=== PATIENT | male | born 1980 | race Caucasian/White ===

== ENCOUNTER 2019-04-11 15:22 | Inpatient (IN) | payer BC ==
[2019-04-11] VITALS (15 sets, daily range): BP systolic 164–268; BP diastolic 88–149
[~2019-04-11] VITALS: Ht 177.8 cm; Wt 143.8 kg
--- NOTE | 2019-04-11 15:50 | PHYS DOC ---
Adult General Chief Complaint Chief Complaint: HYPERTENSION HPI HPI Patient is a 39 year old male who presents with went to see his primary care Dr Mitchell today because the last JVD days he's noticed increased bilateral leg edema and shortness of breath for the last week. Patient states he has a history of asthma only. Patient states that the last week that he stopped short of breath as when he is up and moving normally like that. Patient thought that his asthma may have been acting up so he started using his albuterol inhaler and it did not seem to be working. Patient denies any illness or coughing, fever, abd ominal pain, nausea, vomiting, headache, chest pain, dizziness, numbness or tingling, syncope, visual changes. Patient denies any pain at this time. Patient states at this time he is feeling normal but if he is up and moving is when he feels shortness of breath. Review of Systems Review of Systems Respiratory: Denies cough. +shortness of breath [] Musculoskeletal: Lower extremity swelling. Denies back pain or joint pain [] All other systems were reviewed and found to be within normal limits, except as documented in this note. Current Medications Current Medications Current Medications Medications (Trade) Dose Ordered Sig/Radha Start Time Stop Time Status Last Admin Dose Admin Aspirin (Julian Aspirin) 325 mg 1X ONCE 04/11/19 16:00 04/11/19 16:01 DC 04/11/19 16:31 325 MG Labetalol HCl (Normodyne Iv Push) 10 mg 1X ONCE 04/11/19 16:00 04/11/19 16:01 DC 04/11/19 16:32 10 MG Allergies Allergies Allergies Coded Allergies Type Severity Reaction Last Updated Verified No Known Drug Allergies 04/11/19 No Physical Exam Physical Exam Constitutional: Well developed, well nourished, no acute distress, non-toxic appearance. [] HENT: Normocephalic, atraumatic, bilateral external ears normal, oropharynx moist, no oral exudates, nose normal. [] Eyes: PERRLA, EOMI, conjunctiva normal, no discharge. [] Neck: Normal range of motion, no tenderness, supple, no stridor. [] Cardiovascular:Heart rate regular Tachy rhythm, no murmur [] Lungs & Thorax: Bilateral breath sounds clear to auscultation [] Abdomen: Bowel sounds normal, soft, no tenderness, no masses, no pulsatile masses. [] Skin: Warm, dry, no erythema, no rash. [] Extremities: No tenderness, no cyanosis, no clubbing, ROM intact, Bilateral lower 2+ slightly pitting edema. [] Neurologic: Alert and oriented X 3, normal motor function, normal sensory function, no focal deficits noted. [] Psychologic: Affect normal, judgement normal, mood normal. [] Current Patient Data Vital Signs Vital Signs Date Time Temp Pulse Resp B/P (MAP) Pulse Ox O2 Delivery O2 Flow Rate FiO2 04/11/19 16:45 82 14 97 04/11/19 16:32 235/148 04/11/19 15:32 98.5 Room Air 98.5 Lab Values Laboratory Tests Test 04/11/19 16:12 04/11/19 16:28 White Blood Count 14.2 x10^3/uL (4.0-11.0) H Red Blood Count 3.77 x10^6/uL (4.30-5.70) L Hemoglobin 9.4 g/dL (13.0-17.5) L Hematocrit 28.5 % (39.0-53.0) L Mean Corpuscular Volume 76 fL (79-100) L Mean Corpuscular Hemoglobin 25 pg (25-35) Mean Corpuscular Hemoglobin Concent 33 g/dL (31-37) Red Cell Distribution Width 16.4 % (11.5-14.5) H Platelet Count 271 x10^3/uL (140-400) Neutrophils (%) (Auto) 79 % (31-73) H Lymphocytes (%) (Auto) 14 % (24-48) L Monocytes (%) (Auto) 5 % (0-9) Eosinophils (%) (Auto) 1 % (0-3) Basophils (%) (Auto) 1 % (0-3) Neutrophils # (Auto) 11.2 x10^3/uL (1.8-7.7) H Lymphocytes # (Auto) 2.0 x10^3/uL (1.0-4.8) Monocytes # (Auto) 0.7 x10^3/uL (0.0-1.1) Eosinophils # (Auto) 0.2 x10^3/uL (0.0-0.7) Basophils # (Auto) 0.2 x10^3/uL (0.0-0.2) Sodium Level 135 mmol/L (136-145) L Potassium Level 3.3 mmol/L (3.5-5.1) L Chloride Level 97 mmol/L (98-107) L Carbon Dioxide Level 29 mmol/L (21-32) Anion Gap 9 (6-14) Blood Urea Nitrogen 37 mg/dL (8-26) H Creatinine 3.1 mg/dL (0.7-1.3) H Estimated GFR (Cockcroft-Gault) 22.7 BUN/Creatinine Ratio 12 (6-20) Glucose Level 104 mg/dL (70-99) H Calcium Level 9.0 mg/dL (8.5-10.1) Total Bilirubin 0.8 mg/dL (0.2-1.0) Aspartate Amino Transferase (AST) 24 U/L (15-37) Alanine Aminotransferase (ALT) 17 U/L (16-63) Alkaline Phosphatase 97 U/L (46-116) Troponin I Quantitative 0.116 ng/mL (0.000-0.055) HH-Wjm-E-Type Natriuretic Peptide 8397 pg/mL (0-124) H Total Protein 6.9 g/dL (6.4-8.2) Albumin 3.2 g/dL (3.4-5.0) L Albumin/Globulin Ratio 0.9 (1.0-1.7) L Urine Collection Type Unknown Urine Color Yellow Urine Clarity Clear Urine pH 6.0 Urine Specific [place] 1.015 Urine Protein >=300 mg/dL (NEG-TRACE) Urine Glucose (UA) Negative mg/dL (NEG) Urine Ketones (Stick) Negative mg/dL (NEG) Urine Blood Small (NEG) Urine Nitrite Negative (NEG) Urine Bilirubin Negative (NEG) Urine Urobilinogen Dipstick 0.2 mg/dL (0.2 mg/dL) Urine Leukocyte Esterase Negative (NEG) Urine RBC 1-2 /HPF (0-2) Urine WBC 1-4 /HPF (0-4) Urine Squamous Epithelial Cells Few /LPF Urine Bacteria Few /HPF (0-FEW) Urine Mucus Slight /LPF Urine Opiates Screen Neg (NEG) Urine Methadone Screen Neg (NEG) Urine Barbiturates Neg (NEG) Urine Phencyclidine Screen Neg (NEG) Urine Amphetamine/Methamphetamine Neg (NEG) Urine Benzodiazepines Screen Neg (NEG) Urine Cocaine Screen Neg (NEG) Urine Cannabinoids Screen Pos (NEG) Urine Ethyl Alcohol Neg (NEG) Laboratory Tests 04/11/19 16:12 Laboratory Tests 04/11/19 16:12 EKG EKG Sinus Rhythm with nonspecific ST depression, No STEMI[] Interpretation Time: [address] Calixto Radiology/Procedures Radiology/Procedures [] Impressions: [facility] [address] [place] [address] IMAGING REPORT Signed PATIENT: JOE LIZAMA AACCOUNT: [id number] : 1980 LOCATION: ER AGE: 39 SEX: M EXAM STATUS: REG ER ORD. PHYSICIAN: HENRIQUE MERAZ APRN REASON: soa PROCEDURE: CHEST PA & LATERAL PA and lateral views of the chest. Comparison: None. Indication: Shortness of air Findings: The heart size is enlarged. No pneumothorax or effusion. No air space or interstitial disease. The bony structures are intact. Impression: 1. No acute cardiopulmonary process. 2. Cardiomegaly. Electronically signed by: Catalino Davidson MD (04/11/2019 4:35 PM) [id number] DICTATED and SIGNED BY: CATALINO DAVIDSON MD DATE: 04/11/19 163 Course & Med Decision Making Course & Med Decision Making Patient states he does not smoke and he has a family history of hypertension. Patients blood pressure in the ED is 262/154. Labetalol 10mg give. Patient has bilateral lower extremity 2+ swelling that is slightly pitting. Lungs are clear to auscultation in all lobes. I remained soft and nontender. Skin pink warm and dry. Ambulatory with a steady gait. Speaks in full clear sentences. Alert and oriented. I have consulted with Dr Calixto on this patient. Patient has likely had high blood pressure for a while due to his labs and kidney function (see labs). Patient Troponin is 0.116. 1730: I have spoken to Dr Jane and he states to give the patient 60mg Lasix IV x1 and Potassium 20meg PO. Dr Hawkins is admitting the patient. Dragon Disclaimer Dragon Disclaimer This electronic medical record was generated, in whole or in part, using a voice recognition dictation system. The HEART Score for CP Pts HEART Score for Chest Pain: HEART Score for Chest Pain Response (Comments) Value History Slighlty/Non-Suspicious 0 ECG Nonspecific Repolarizatio 1 Age < 45 0 Risk Factors 1 or 2 Risk Factors 1 Troponin >1-<3x Normal Limit 1 Total 3 Risk Factors: Risk Factors: DM, Current or recent (<one month) smoker, HTN, HLP, family history of CAD, obesity. Risk Scores: Score 0 - 3: 2.5% MACE over next 6 weeks - Discharge Home Score 4 - 6: 20.3% MACE over next 6 weeks - Admit for Clinical Observation Score 7 - 10: 72.7% MACE over next 6 weeks - Early Invasive Strategies Departure Departure Impression: Primary Impression: Elevated troponin Additional Impressions: HTN (hypertension) TERI (acute kidney injury) Disposition: ADMITTED INPATIENT Admitting Physician: FLORENTINO (jody) Condition: STABLE Referrals: NALLELY MITCHELL (PCP) Problem Qualifiers Additional Impressions: HTN (hypertension) Hypertension type: essential hypertension Qualified Codes: I10 - Essential (primary) hypertension HENRIQUE MERAZ [employer]CH[employer] Apr 11, 2019 15:50
[2019-04-11] MEDS ORDERED: LABETALOL 20 MG/4 ML DISP.SYRIN. IVP ONE (16:00)
[2019-04-11] MEDS ORDERED: ASPIRIN 325 MG TABLET PO ONE (16:00)
[2019-04-11 16:19] LABS: BASO # 0.2 x10^3/uL (0.0-0.2); BASO % 1 % (0-3); EOS # 0.2 x10^3/uL (0.0-0.7); EOS % 1 % (0-3); HEMATOCRIT 28.5 % (39.0-53.0); HEMOGLOBIN 9.4 g/dL (13.0-17.5); LYMPH % 14 % (24-48); MEAN CORPUSCULAR HEMOGLOBIN 25 pg (25-35); MEAN CORPUSCULAR HGB CONC 33 g/dL (31-37); MEAN CORPUSCULAR VOLUME 76 fL (79-100); MONO # 0.7 x10^3/uL (0.0-1.1); MONO % 5 % (0-9); NEUT # 11.2 x10^3/uL (1.8-7.7); NEUT % 79 % (31-73); PLATELET COUNT 271 x10^3/uL (140-400); RED BLOOD COUNT 3.77 x10^6/uL (4.30-5.70); RED CELL DISTRIBUTION WIDTH 16.4 % (11.5-14.5); WHITE BLOOD COUNT 14.2 x10^3/uL (4.0-11.0)
[2019-04-11 16:32] LABS: CREATININE 3.1 mg/dL (0.7-1.3); GFR 22.7; POTASSIUM 3.3 mmol/L (3.5-5.1)
[2019-04-11 16:37] LABS: BILIRUBIN,URINE NEGATIVE (NEG); CLARITY,URINE CLEAR; COLOR,URINE YELLOW; NITRITE,URINE NEGATIVE (NEG); PROTEIN,URINE >=300 mg/dL (NEG-TRACE); UROBILINOGEN,URINE 0.2 mg/dL (0.2 mg/dL)
--- NOTE | 2019-04-11 16:38 | RAD ---
PA and lateral views of the chest. Comparison: None. Indication: Shortness of air Findings: The heart size is enlarged. No pneumothorax or effusion. No air space or interstitial disease. The bony structures are intact. Impression: 1. No acute cardiopulmonary process. 2. Cardiomegaly. Electronically signed by: Catalino Davidson MD (04/11/2019 4:35 PM) [id number]
[2019-04-11 16:39] LABS: ALBUMIN 3.2 g/dL (3.4-5.0); ALBUMIN/GLOBULIN RATIO 0.9 (1.0-1.7); TOTAL BILIRUBIN 0.8 mg/dL (0.2-1.0); TOTAL PROTEIN 6.9 g/dL (6.4-8.2)
[2019-04-11 16:44] LABS: AMPHETAMINE/METHAMPHETAMINE NEG (NEG); BARBITURATES NEG (NEG); BENZODIAZEPINES NEG (NEG); CANNABINOIDS POS (NEG); COCAINE NEG (NEG); METHADONE NEG (NEG); OPIATES NEG (NEG); PHENCYCLIDINE NEG (NEG)
[2019-04-11 16:47] LABS: BACTERIA,URINE FEW /HPF (0-FEW); SQUAMOUS EPITHELIAL CELL,UR FEW /LPF
[2019-04-11] MEDS ORDERED: POTASSIUM CHLORIDE 20 MEQ TABLET.ER. PO ONE ×2 (17:45→21:15)
[2019-04-11] MEDS ORDERED: ONDANSETRON PF 4 MG/2 ML VIAL. IV ONE (17:45)
[2019-04-11] MEDS ORDERED: FUROSEMIDE 100 MG/10 ML VIAL. IVP ONE (17:45)
[2019-04-11] MEDS ORDERED: ACETAMINOPHEN 325 MG TABLET. PO PRN (17:45)
[2019-04-11] MEDS ORDERED: ONDANSETRON PF 4 MG/2 ML VIAL. IV PRN ×2 (17:45→20:30)
--- NOTE | 2019-04-11 18:29 | PDOC1 ---
History and Physical Date of Admission Date of Admission DATE: 04/11/19 TIME: 18:29 Identification/Chief Complaint Chief Complaint HTN Source Source: Chart review, Patient History of Present Illness History of Present Illness Mr Gonzalez is a 39yo M w/ PMHx asthma, morbid obesity who presents to ED directly from Dr Mitchell today because of BP 254/136. Patient has noted increased bilateral leg edema and shortness of breath for the last week. He has been c/o lethargy for weeks. He has recently been on a "health kick" and has intentionally lost 25# by joining the [employer] for exercise 3-5 days per week as of 2 months ago and he and his have made healthier dietary choices. Due to worsening dyspnea on exertion and early fatigue he thought that his asthma may have been acting up so he started using his albuterol inhaler and it did not seem to be working and has run out. Patient denies any illness or coughing, fever, abdominal pain, nausea, vomiting, headache, chest pain, dizziness, numbness or tingling, syncope, visual changes. Patient denies any pain at this time. Patient states at this time he is feeling normal but if he is up and moving is when he feels shortness of breath. He established primary care today for his lethargy and above BP was noted and he was sent immediately to the ED. He has not been told his BP has been elevated previously. In ED he was noted with a number of abnormalities with BP 264/154 minimally changed with labetalol. CXR revealed cardiomegaly. EKG NSR with non- specific lucretia-lateral ST depressions. 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 He lives with his and 2 children (8 and 5), is non-smoker, and has recently stopped drinking alcohol 2 months ago. Father and paternal grandfather with h/o HTN, does not know his mother's lineage or health history. Past Medical History Cardiovascular: No pertinent hx Pulmonary: Asthma GI: No pertinent hx Heme/Onc: No pertinent hx Hepatobiliary: No pertinent hx Psych: No pertinent hx Rheumatologic: No pertinent hx Infectious disease: No pertinent hx ENT: No pertinent hx Renal/: No pertinent hx Endocrine: No pertinent hx Dermatology: No pertinent hx Past Surgical History Past Surgical History: No pertinent history Family History Family History: Hypertension Family History: Parent (Father - HTN), Grandparents (Paternal Grandfather - HTN) Social History Smoke: No ALCOHOL: occassional Drugs: Marijuana Current Problem List Problem List Problems Medical Problems: (1) TERI (acute kidney injury) Status: Acute (2) Elevated troponin Status: Acute (3) HTN (hypertension) Status: Acute Current Medications Current Medications Current Medications Labetalol HCl (Normodyne Iv Push) 10 mg 1X ONCE IVP Last administered on 04/11/19at 16:32; Start 04/11/19 at 16:00; Stop 04/11/19 at 16:01; Status DC Aspirin (Julian Aspirin) 325 mg 1X ONCE PO Last administered on 04/11/19at 16:31; Start 04/11/19 at 16:00; Stop 04/11/19 at 16:01; Status DC Furosemide (Lasix) 60 mg 1X ONCE IVP Last administered on 04/11/19at 18:05; Start 04/11/19 at 17:45; Stop 04/11/19 at 17:46; Status DC Potassium Chloride (Klor-Con) 20 meq 1X ONCE PO Last administered on 04/11/19at 18:04; Start 04/11/19 at 17:45; Stop 04/11/19 at 17:46; Status DC Ondansetron HCl (Zofran) 4 mg 1X ONCE IV Last administered on 04/11/19at 18:05; Start 04/11/19 at 17:45; Stop 04/11/19 at 17:46; Status DC Ondansetron HCl (Zofran) 4 mg PRN Q8HRS PRN IV NAUSEA/VOMITING; Start 04/11/19 at 17:45; Stop 04/12/19 at 17:44 Acetaminophen (Tylenol) 650 mg PRN Q4HRS PRN PO FEVER; Start 04/11/19 at 17:45; Stop 04/12/19 at 17:44 Allergies Allergies: Coded Allergies: No Known Drug Allergies (Unverified , 04/11/19) ROS General: YES: Fatigue, Malaise; No: Chills, Night Sweats, Appetite, Other PSYCHOLOGICAL ROS: No: Anxiety, Behavioral Disorder, Concentration difficultie, Decreased libido, Depression, Disorientation, Hallucinations, Hostility, Irritablity, Memory difficulties, Mood Swings, Obsessive thoughts, Physical abuse, Sexual abuse, Sleep disturbances, Suicidal ideation, Other Eyes: No Blurry vision, No Decreased vision, No Double vision, No Dry eyes, No Excessive tearing, No Eye Pain, No Itchy Eyes, No Loss of vision, No Photophobia, No Scotomata, No Uses contacts, No Uses glasses, No Other HEENT: No: Heacaches, Visual Changes, Hearing change, Nasal congestion, Nasal discharge, Oral lesions, Sinus pain, Sore Throat, Epistaxis, Sneezing, Snoring, Tinnitus, Vertigo, Vocal changes, Other ALLERGY AND IMMUNOLOGY: No: Hives, Insect Bite Sensitivity, Itchy/Watery Eyes, Nasal Congestion, Post Nasal Drip, Seasonal Allergies, Other Hematological and Lymphatic: No: Bleeding Problems, Blood Clots, Blood Transfusions, Brusing, Night Sweats, Pallor, Swollen Lymph Nodes, Other ENDOCRINE: No: Breast Changes, Galactorrhea, Hair Pattern Changes, Hot Flashes, Malaise/lethargy, Mood Swings, Palpitations, Polydipsia/polyuria, Skin Changes, Temperature Intolerance, Unexpected Weight Changes, Other Breast: No New/Changing Breast Lumps, No Nipple changes, No Nipple discharge, No Other Respiratory: YES: Orthopnea, Shortness of breath, SOB with excertion; No: Cough, Hemoptysis, Pleuritic Pain, Sputum Changes, Stridor, Tachypnea, Wheezing, Other Cardiovascular: yes Orthopnea, yes Edema; No Chest Pain, No Palpitations, No Paroxysmal Noc. Dyspnea, No Lt Headedness, No Other Gastrointestinal: No Nausea, No Vomiting, No Abdominal Pain, No Diarrhea, No Constipation, No Melena, No Hematochezia, No Other Genitourinary: No Dysuria, No Frequency, No Incontinence, No Hematuria, No Retention, No Discharge, No Urgency, No Pain, No Flank Pain, No Other, No , No , No , No , No , No , No Musculoskeletal: No Gait Disturbance, No Joint Pain, No Joint Stiffness, No Joint Swelling, No Muscle Pain, No Muscular Weakness, No Pain In:, No Swelling In:, No Other Neurological: No Behavorial Changes, No Bowel/Bladder ControlChng, No Confusion, No Dizziness, No Gait Disturbance, No Headaches, No Impaired Coord/balance, No Memory Loss, No Numbness/Tingling, No Seizures, No Speech Problems, No Tremors, No Visual Changes, No Weakness, No Other Skin: No Dry Skin, No Eczema, No Hair Changes, No Lumps, No Mole Changes, No Mottling, No Nail Changes, No Pruritus, No Rash, No Skin Lesion Changes, No Other, No Acne Physical Exam General: Alert, Oriented X3, Cooperative, No acute distress HEENT: Atraumatic, PERRLA, EOMI, Mucous membr. moist/pink Lungs: Clear to auscultation, Normal air movement Heart: S1S2, RRR, no thrills, no rubs, no gallops, no murmurs Abdomen: Normal bowel sounds, Soft, No tenderness, No hepatosplenomegaly, No masses Rectal Exam: not examined Extremities: No clubbing, No cyanosis, Normal pulses, No tenderness/swelling, Other (1+ edema) Skin: No rashes, No breakdown, No significant lesion Neuro: Normal gait, Normal speech, Strength at 5/5 X4 ext, Normal tone, Sensation intact, Cranial nerves 3-12 NL, Reflexes 2+ Psych/Mental Status: Mental status NL, Mood NL Vitals Vitals Vital Signs Date Time Temp Pulse Resp B/P (MAP) Pulse Ox O2 Delivery O2 Flow Rate FiO2 04/11/19 16:45 82 14 97 04/11/19 16:32 235/148 04/11/19 15:32 98.5 Room Air 98.5 Labs Labs Laboratory Tests Test 04/11/19 16:12 04/11/19 16:28 White Blood Count 14.2 x10^3/uL (4.0-11.0) Red Blood Count 3.77 x10^6/uL (4.30-5.70) Hemoglobin 9.4 g/dL (13.0-17.5) Hematocrit 28.5 % (39.0-53.0) Mean Corpuscular Volume 76 fL (79-100) Mean Corpuscular Hemoglobin 25 pg (25-35) Mean Corpuscular Hemoglobin Concent 33 g/dL (31-37) Red Cell Distribution Width 16.4 % (11.5-14.5) Platelet Count 271 x10^3/uL (140-400) Neutrophils (%) (Auto) 79 % (31-73) Lymphocytes (%) (Auto) 14 % (24-48) Monocytes (%) (Auto) 5 % (0-9) Eosinophils (%) (Auto) 1 % (0-3) Basophils (%) (Auto) 1 % (0-3) Neutrophils # (Auto) 11.2 x10^3/uL (1.8-7.7) Lymphocytes # (Auto) 2.0 x10^3/uL (1.0-4.8) Monocytes # (Auto) 0.7 x10^3/uL (0.0-1.1) Eosinophils # (Auto) 0.2 x10^3/uL (0.0-0.7) Basophils # (Auto) 0.2 x10^3/uL (0.0-0.2) Sodium Level 135 mmol/L (136-145) Potassium Level 3.3 mmol/L (3.5-5.1) Chloride Level 97 mmol/L (98-107) Carbon Dioxide Level 29 mmol/L (21-32) Anion Gap 9 (6-14) Blood Urea Nitrogen 37 mg/dL (8-26) Creatinine 3.1 mg/dL (0.7-1.3) Estimated GFR (Cockcroft-Gault) 22.7 BUN/Creatinine Ratio 12 (6-20) Glucose Level 104 mg/dL (70-99) Calcium Level 9.0 mg/dL (8.5-10.1) Total Bilirubin 0.8 mg/dL (0.2-1.0) Aspartate Amino Transf (AST/SGOT) 24 U/L (15-37) Alanine Aminotransferase (ALT/SGPT) 17 U/L (16-63) Alkaline Phosphatase 97 U/L (46-116) Troponin I Quantitative 0.116 ng/mL (0.000-0.055) QD-Fzp-L-Type Natriuretic Peptide 8397 pg/mL (0-124) Total Protein 6.9 g/dL (6.4-8.2) Albumin 3.2 g/dL (3.4-5.0) Albumin/Globulin Ratio 0.9 (1.0-1.7) Urine Collection Type Unknown Urine Color Yellow Urine Clarity Clear Urine pH 6.0 Urine Specific [place] 1.015 Urine Protein >=300 mg/dL (NEG-TRACE) Urine Glucose (UA) Negative mg/dL (NEG) Urine Ketones (Stick) Negative mg/dL (NEG) Urine Blood Small (NEG) Urine Nitrite Negative (NEG) Urine Bilirubin Negative (NEG) Urine Urobilinogen Dipstick 0.2 mg/dL (0.2 mg/dL) Urine Leukocyte Esterase Negative (NEG) Urine RBC 1-2 /HPF (0-2) Urine WBC 1-4 /HPF (0-4) Urine Squamous Epithelial Cells Few /LPF Urine Bacteria Few /HPF (0-FEW) Urine Mucus Slight /LPF Urine Opiates Screen Neg (NEG) Urine Methadone Screen Neg (NEG) Urine Barbiturates Neg (NEG) Urine Phencyclidine Screen Neg (NEG) Urine Amphetamine/Methamphetamine Neg (NEG) Urine Benzodiazepines Screen Neg (NEG) Urine Cocaine Screen Neg (NEG) Urine Cannabinoids Screen Pos (NEG) Urine Ethyl Alcohol Neg (NEG) Laboratory Tests Test 04/11/19 16:12 04/11/19 16:28 White Blood Count 14.2 x10^3/uL (4.0-11.0) Red Blood Count 3.77 x10^6/uL (4.30-5.70) Hemoglobin 9.4 g/dL (13.0-17.5) Hematocrit 28.5 % (39.0-53.0) Mean Corpuscular Volume 76 fL (79-100) Mean Corpuscular Hemoglobin 25 pg (25-35) Mean Corpuscular Hemoglobin Concent 33 g/dL (31-37) Red Cell Distribution Width 16.4 % (11.5-14.5) Platelet Count 271 x10^3/uL (140-400) Neutrophils (%) (Auto) 79 % (31-73) Lymphocytes (%) (Auto) 14 % (24-48) Monocytes (%) (Auto) 5 % (0-9) Eosinophils (%) (Auto) 1 % (0-3) Basophils (%) (Auto) 1 % (0-3) Neutrophils # (Auto) 11.2 x10^3/uL (1.8-7.7) Lymphocytes # (Auto) 2.0 x10^3/uL (1.0-4.8) Monocytes # (Auto) 0.7 x10^3/uL (0.0-1.1) Eosinophils # (Auto) 0.2 x10^3/uL (0.0-0.7) Basophils # (Auto) 0.2 x10^3/uL (0.0-0.2) Sodium Level 135 mmol/L (136-145) Potassium Level 3.3 mmol/L (3.5-5.1) Chloride Level 97 mmol/L (98-107) Carbon Dioxide Level 29 mmol/L (21-32) Anion Gap 9 (6-14) Blood Urea Nitrogen 37 mg/dL (8-26) Creatinine 3.1 mg/dL (0.7-1.3) Estimated GFR (Cockcroft-Gault) 22.7 BUN/Creatinine Ratio 12 (6-20) Glucose Level 104 mg/dL (70-99) Calcium Level 9.0 mg/dL (8.5-10.1) Total Bilirubin 0.8 mg/dL (0.2-1.0) Aspartate Amino Transf (AST/SGOT) 24 U/L (15-37) Alanine Aminotransferase (ALT/SGPT) 17 U/L (16-63) Alkaline Phosphatase 97 U/L (46-116) Troponin I Quantitative 0.116 ng/mL (0.000-0.055) HC-Bxz-L-Type Natriuretic Peptide 8397 pg/mL (0-124) Total Protein 6.9 g/dL (6.4-8.2) Albumin 3.2 g/dL (3.4-5.0) Albumin/Globulin Ratio 0.9 (1.0-1.7) Urine Collection Type Unknown Urine Color Yellow Urine Clarity Clear Urine pH 6.0 Urine Specific [place] 1.015 Urine Protein >=300 mg/dL (NEG-TRACE) Urine Glucose (UA) Negative mg/dL (NEG) Urine Ketones (Stick) Negative mg/dL (NEG) Urine Blood Small (NEG) Urine Nitrite Negative (NEG) Urine Bilirubin Negative (NEG) Urine Urobilinogen Dipstick 0.2 mg/dL (0.2 mg/dL) Urine Leukocyte Esterase Negative (NEG) Urine RBC 1-2 /HPF (0-2) Urine WBC 1-4 /HPF (0-4) Urine Squamous Epithelial Cells Few /LPF Urine Bacteria Few /HPF (0-FEW) Urine Mucus Slight /LPF Urine Opiates Screen Neg (NEG) Urine Methadone Screen Neg (NEG) Urine Barbiturates Neg (NEG) Urine Phencyclidine Screen Neg (NEG) Urine Amphetamine/Methamphetamine Neg (NEG) Urine Benzodiazepines Screen Neg (NEG) Urine Cocaine Screen Neg (NEG) Urine Cannabinoids Screen Pos (NEG) Urine Ethyl Alcohol Neg (NEG) Images Images CXR - The heart size is enlarged. No pneumothorax or effusion. No air space or interstitial disease. The bony structures are intact. Impression: 1. No acute cardiopulmonary process. 2. Cardiomegaly. VTE Prophylaxis Ordered VTE Prophylaxis Devices: No VTE Pharmacological Prophylaxi: Yes Assessment/Plan Assessment/Plan A/P: Hypertensive Emergency - with TERI. Will cont labetalol prn, start on nicardipine GTT as he was not responsive to labetalol and NTG initially and his diastolic BP is life-threateningly high. TERI - no known h/o renal dysfunction. It is unclear if this is simply vasomotor nephropathy vs ATN. Has not been taking NSAIDs. Very concerning he is anemic as well. WIll get renal imaging and consult nephrology. Given his elevated BNP, edema and symptomatic HTN lasix is appropriate initial therapy to help treat his BP Elevated troponin - this could be demand ischemia or 2/2 TERI. Will trend trops and obtain echo given his cardiomegaly noted on CXR Anemia, microcytic - will check iron studies. LDH, haptoglobin, TSH, B12, and reticulocyte count. Given his renal dysfunction this is concerning given his young age and no prior medical disease. Leukocytosis - uncertain etiology. Could be reactive with his BP elevation and neutrophil predominance. No sick contacts or illness. Will obtain blood cultures, trend his CBC. Hypokalemia - will slowly replace oral, cautiously given his renal dysfunction. Check mag Hypoalbuminemia - will treat as mild protein calorie malnutrition. Has been dieting recently. Lethargy - multifactorial given all the above, check TSH as well LE edema - likely related to TERI, hypertensive emergency. Given lasix already. will monitor. FEN - Cardiac diet PPX - ambulatory, age places at lower risk, will give SC heparin, however FULL CODE Dispo - CCU/CVC for hypertensive emergency. JEFF ENGLAND MD Apr 11, 2019 18:29
[2019-04-11] MEDS ORDERED: NITROGLYCERIN OINT 1 GM PACKET. TP ONE (18:45)
--- NOTE | 2019-04-11 20:15 | NUR ---
PT ADMITTED WITH TERI, HTN AND ELEVATED TROPONIN, ADMISSION PACKET GIVEN, PLAN OF CARE EXPLAINED, ADMISSION COMPLETE, PT VERBALIZE UNDERSTANDING. AT BEDSIDE. WILL CONT TO MONITORPT STATUS AND SAFETY. PMRN
[2019-04-11] MEDS: NITROGLYCERIN OINT 1 GM PACKET. TP SCH (20:45)
[2019-04-11] MEDS: amLODIPine BESYLATE 5 MG TABLET PO SCH (20:49)
[2019-04-11] MEDS: LABETALOL 20 MG/4 ML DISP.SYRIN. IVP PRN (20:52)
--- NOTE | 2019-04-11 20:58 | NUR ---
dr bah notified of pt elevated bp new orders received, see charting. will cont to monitor pt status and safety pmrn
[2019-04-11] MEDS: HEPARIN for SUB-Q USE 5,000 UNIT/ML VIAL. SQ SCH (21:29)
[2019-04-11 22:29] LABS: CREATININE,RANDOM URINE 124.6 mg/dL (Not Establ.)
[2019-04-12] VITALS (22 sets, daily range): BP systolic 150–199; BP diastolic 64–96
[2019-04-12] MEDS: NITROGLYCERIN OINT 1 GM PACKET. TP SCH ×2 (01:30→06:25)
[2019-04-12 03:50] LABS: BASO # 0.1 x10^3/uL (0.0-0.2); BASO % 1 % (0-3); EOS # 0.1 x10^3/uL (0.0-0.7); EOS % 1 % (0-3); HEMATOCRIT 29.3 % (39.0-53.0); HEMOGLOBIN 9.5 g/dL (13.0-17.5); LYMPH # 1.9 x10^3/uL (1.0-4.8); LYMPH % 12 % (24-48); MEAN CORPUSCULAR HEMOGLOBIN 24 pg (25-35); MEAN CORPUSCULAR HGB CONC 33 g/dL (31-37); MEAN CORPUSCULAR VOLUME 75 fL (79-100); MONO # 0.8 x10^3/uL (0.0-1.1); MONO % 5 % (0-9); NEUT # 13.3 x10^3/uL (1.8-7.7); NEUT % 82 % (31-73); PLATELET COUNT 277 x10^3/uL (140-400); RED BLOOD COUNT 3.89 x10^6/uL (4.30-5.70); RED CELL DISTRIBUTION WIDTH 16.4 % (11.5-14.5); WHITE BLOOD COUNT 16.2 x10^3/uL (4.0-11.0)
[2019-04-12 04:07] LABS: ALBUMIN 3.4 g/dL (3.4-5.0); CALCIUM 9.2 mg/dL (8.5-10.1); CREATININE 3.1 mg/dL (0.7-1.3); GFR 22.7; PHOSPHORUS 5.6 mg/dL (2.6-4.7); POTASSIUM 3.6 mmol/L (3.5-5.1); PROTHROMBIN TIME PATIENT 14.4 SEC (11.7-14.0)
[2019-04-12 04:29] LABS: CHOLESTEROL/HDL RATIO 4.8
--- NOTE | 2019-04-12 04:47 | NUR ---
PT 7418 MEDICATION NOT GIVEN D/T NITROPASTE APPLIED IN ED, WILL MONITOR. PMRN
--- NOTE | 2019-04-12 05:20 | RAD ---
Bilateral Renal Ultrasound, Renal Doppler: History: Uncontrolled hypertension. Technique: Sonographic examination of the kidneys was performed and multiple static images were obtained. Color Doppler and arterial spectral analysis was applied as well for a renal ultrasound and renal artery ultrasound duplex examination. Renal Ultrasound: Findings: Right Kidney: The right kidney appears normal without hydronephrosis and measures 10.7 cm in length. Left Kidney: The left kidney appears normal without hydronephrosis and measures 9.1 cm in length. Impression: No hydronephrosis. Renal Artery Ultrasound Duplex Examination: Findings: There is normal arterial waveform morphology without abnormally high velocities. The proximal left renal artery is not visualized. Impression: Limited study. No abnormal velocities detected. The left renal arteries is not well evaluated. Electronically signed by: Bert Novak III, MD (04/12/2019 5:18 AM) [facility]
[2019-04-12] MEDS: HEPARIN for SUB-Q USE 5,000 UNIT/ML VIAL. SQ SCH ×3 (06:29→20:25)
[2019-04-12] MEDS ORDERED: FLU VAX QS 2019-20 (36MOS+)/PF 0.5 ML SYRINGE. VAX IM ONE (09:00)
[2019-04-12] MEDS: amLODIPine BESYLATE 5 MG TABLET PO SCH (09:02)
[2019-04-12] MEDS: ISOSORBIDE MONONITRATE ER 30 MG TAB.ER.24H PO SCH (10:24)
[2019-04-12] MEDS: CARVEDILOL 6.25 MG TABLET. PO SCH ×2 (11:30→17:53)
--- NOTE | 2019-04-12 12:16 | PDOC ---
PROGRESS NOTES Chief Complaint Chief Complaint A/P: Hypertensive Emergency - with TERI. Will cont labetalol prn, still on nicardipine GTT as he was not responsive to labetalol and NTG initially and his diastolic BP is life-threateningly high. Seen by cardiology, started appropriately on imdur, hydralazine and will try coreg TERI - no known h/o renal dysfunction. It is unclear if this is simply vasomotor nephropathy vs ATN. Has not been taking NSAIDs. Very concerning he is anemic as well. WIll get renal imaging and consult nephrology. Given his elevated BNP, edema and symptomatic HTN lasix is appropriate initial therapy to help treat his BP Elevated troponin - this could be demand ischemia or 2/2 TERI. Will trend trops and obtain echo given his cardiomegaly noted on CXR Anemia, microcytic - will check iron studies. LDH, haptoglobin, TSH, B12, and reticulocyte count. Given his renal dysfunction this is concerning given his young age and no prior medical disease. Leukocytosis - uncertain etiology. Could be reactive with his BP elevation and neutrophil predominance. No sick contacts or illness. Will obtain blood cultures, trend his CBC. Hypokalemia - will slowly replace oral, cautiously given his renal dysfunction. Check mag Hypoalbuminemia - will treat as mild protein calorie malnutrition. Has been dieting recently. Lethargy - multifactorial given all the above, check TSH as well LE edema - likely related to TERI, hypertensive emergency. Given lasix already. will monitor. FEN - Cardiac diet PPX - ambulatory, age places at lower risk, will give SC heparin, however FULL CODE Dispo - CCU/CVC for hypertensive emergency. History of Present Illness History of Present Illness Mr Gonzalez is a 39yo M w/ PMHx asthma, morbid obesity who presents to ED directly from Dr Mitchell today because of BP 254/136. Patient has noted increased bilateral leg edema and shortness of breath for the last week. He has been c/o lethargy for weeks. He has recently been on a "health kick" and has intentionally lost 25# by joining the [employer] for exercise 3-5 days per week as of 2 months ago and he and his have made healthier dietary choices. Due to worsening dyspnea on exertion and early fatigue he thought that his asth ma may have been acting up so he started using his albuterol inhaler and it did not seem to be working and has run out. Patient denies any illness or coughing, fever, abdominal pain, nausea, vomiting, headache, chest pain, dizziness, numbness or tingling, syncope, visual changes. Patient denies any pain at this time. Patient states at this time he is feeling normal but if he is up and moving is when he feels shortness of breath. He established primary care today for his lethargy and above BP was noted and he was sent immediately to the ED. He has not been told his BP has been elevated previously. In ED he was noted with a number of abnormalities with BP 264/154 minimally changed with labetalol. CXR revealed cardiomegaly. EKG NSR with non- specific lucretia-lateral ST depressions. 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 He lives with his and 2 children (8 and 5), is non-smoker, and has recently stopped drinking alcohol 2 months ago. Father and paternal grandfather with h/o HTN, does not know his mother's lineage or health history. Overnight BP improved a bit on cardene GTT, but still not weaned off. His Cr is stable. Troponin came down. He feels symptomatically improved. Of note, he recalls he was on HCTZ a few years ago, but after a f/u appt with normal BP he was instructed to stop. Vitals Vitals Vital Signs Date Time Temp Pulse Resp B/P (MAP) Pulse Ox O2 Delivery O2 Flow Rate FiO2 04/12/19 11:30 94 157/62 04/12/19 10:17 97.9 18 96 Nasal Cannula 2.0 97.9 Physical Exam General: Alert, Oriented X3, Cooperative, No acute distress Heart: Regular rate, Normal S1, Normal S2 Abdomen: Normal bowel sounds, Soft, No tenderness, No hepatosplenomegaly, No masses Extremities: No clubbing, No cyanosis, Normal pulses, No tenderness/swelling, Other (1+ edema) Skin: No rashes, No breakdown, No significant lesion Labs LABS Laboratory Tests Test 04/11/19 16:12 04/11/19 16:28 04/11/19 22:22 04/12/19 03:30 White Blood Count 14.2 x10^3/uL (4.0-11.0) 16.2 x10^3/uL (4.0-11.0) Red Blood Count 3.77 x10^6/uL (4.30-5.70) 3.91 x10^6/uL (4.30-5.70) 3.89 x10^6/uL (4.30-5.70) Hemoglobin 9.4 g/dL (13.0-17.5) 9.5 g/dL (13.0-17.5) Hematocrit 28.5 % (39.0-53.0) 29.3 % (39.0-53.0) Mean Corpuscular Volume 76 fL (79-100) 75 fL (79-100) Mean Corpuscular Hemoglobin 25 pg (25-35) 24 pg (25-35) Mean Corpuscular Hemoglobin Concent 33 g/dL (31-37) 33 g/dL (31-37) Red Cell Distribution Width 16.4 % (11.5-14.5) 16.4 % (11.5-14.5) Platelet Count 271 x10^3/uL (140-400) 277 x10^3/uL (140-400) Neutrophils (%) (Auto) 79 % (31-73) 82 % (31-73) Lymphocytes (%) (Auto) 14 % (24-48) 12 % (24-48) Monocytes (%) (Auto) 5 % (0-9) 5 % (0-9) Eosinophils (%) (Auto) 1 % (0-3) 1 % (0-3) Basophils (%) (Auto) 1 % (0-3) 1 % (0-3) Neutrophils # (Auto) 11.2 x10^3/uL (1.8-7.7) 13.3 x10^3/uL (1.8-7.7) Lymphocytes # (Auto) 2.0 x10^3/uL (1.0-4.8) 1.9 x10^3/uL (1.0-4.8) Monocytes # (Auto) 0.7 x10^3/uL (0.0-1.1) 0.8 x10^3/uL (0.0-1.1) Eosinophils # (Auto) 0.2 x10^3/uL (0.0-0.7) 0.1 x10^3/uL (0.0-0.7) Basophils # (Auto) 0.2 x10^3/uL (0.0-0.2) 0.1 x10^3/uL (0.0-0.2) Sodium Level 135 mmol/L (136-145) 137 mmol/L (136-145) Potassium Level 3.3 mmol/L (3.5-5.1) 3.6 mmol/L (3.5-5.1) Chloride Level 97 mmol/L (98-107) 97 mmol/L (98-107) Carbon Dioxide Level 29 mmol/L (21-32) 31 mmol/L (21-32) Anion Gap 9 (6-14) 9 (6-14) Blood Urea Nitrogen 37 mg/dL (8-26) 36 mg/dL (8-26) Creatinine 3.1 mg/dL (0.7-1.3) 3.1 mg/dL (0.7-1.3) Estimated GFR (Cockcroft-Gault) 22.7 22.7 BUN/Creatinine Ratio 12 (6-20) Glucose Level 104 mg/dL (70-99) 123 mg/dL (70-99) Calcium Level 9.0 mg/dL (8.5-10.1) 9.2 mg/dL (8.5-10.1) Total Bilirubin 0.8 mg/dL (0.2-1.0) Aspartate Amino Transf (AST/SGOT) 24 U/L (15-37) Alanine Aminotransferase (ALT/SGPT) 17 U/L (16-63) Alkaline Phosphatase 97 U/L (46-116) Troponin I Quantitative 0.116 ng/mL (0.000-0.055) 0.114 ng/mL (0.000-0.055) 0.093 ng/mL (0.000-0.055) AP-Thj-W-Type Natriuretic Peptide 8397 pg/mL (0-124) Total Protein 6.9 g/dL (6.4-8.2) Albumin 3.2 g/dL (3.4-5.0) 3.4 g/dL (3.4-5.0) Albumin/Globulin Ratio 0.9 (1.0-1.7) Urine Collection Type Unknown Urine Color Yellow Urine Clarity Clear Urine pH 6.0 Urine Specific [place] 1.015 Urine Protein >=300 mg/dL (NEG-TRACE) Urine Glucose (UA) Negative mg/dL (NEG) Urine Ketones (Stick) Negative mg/dL (NEG) Urine Blood Small (NEG) Urine Nitrite Negative (NEG) Urine Bilirubin Negative (NEG) Urine Urobilinogen Dipstick 0.2 mg/dL (0.2 mg/dL) Urine Leukocyte Esterase Negative (NEG) Urine RBC 1-2 /HPF (0-2) Urine WBC 1-4 /HPF (0-4) Urine Squamous Epithelial Cells Few /LPF Urine Bacteria Few /HPF (0-FEW) Urine Mucus Slight /LPF Urine Random Creatinine 124.6 mg/dL (Not Establ.) Urine Random Total Protein 351.4 mg/dL (Not Establ.) Urine Opiates Screen Neg (NEG) Urine Methadone Screen Neg (NEG) Urine Barbiturates Neg (NEG) Urine Phencyclidine Screen Neg (NEG) Urine Amphetamine/Methamphetamine Neg (NEG) Urine Benzodiazepines Screen Neg (NEG) Urine Cocaine Screen Neg (NEG) Urine Cannabinoids Screen Pos (NEG) Urine Ethyl Alcohol Neg (NEG) Absolute Reticulocyte Count 0.191 x10^6/uL (0.020-0.120) Percent Reticulocyte Count 4.9 % (0.5-2.3) Immature Reticulocyte Fraction 0.59 (0.20-0.60) Magnesium Level 1.9 mg/dL (1.8-2.4) Iron Level 30 ug/dL (65-175) Total Iron Binding Capacity 365 ug/dL (250-450) Iron Saturation 8 % (15-34) Lactate Dehydrogenase 325 U/L (85-227) Procalcitonin < 0.10 ng/mL (0.00-0.10) Thyroid Stimulating Hormone (TSH) 3.738 uIU/mL (0.358-3.74) Prothrombin Time 14.4 SEC (11.7-14.0) Prothromb Time International Ratio 1.2 (0.8-1.1) Activated Partial Thromboplast Time 32 SEC (24-38) Phosphorus Level 5.6 mg/dL (2.6-4.7) Triglycerides Level 99 mg/dL (0-150) Cholesterol Level 173 mg/dL (0-200) LDL Cholesterol, Calculated 117 mg/dL (0-100) VLDL Cholesterol, Calculated 20 mg/dL (0-40) Non-HDL Cholesterol Calculated 137 mg/dL (0-129) HDL Cholesterol 36 mg/dL (40-60) Cholesterol/HDL Ratio 4.8 Assessment and Plan Assessmemt and Plan Problems Medical Problems: (1) TERI (acute kidney injury) Status: Acute (2) Elevated troponin Status: Acute (3) HTN (hypertension) Status: Acute Comment Review of Relevant I have reviewed the following items agustin (where applicable) has been applied. Labs Laboratory Tests Test 04/11/19 16:12 04/11/19 16:28 04/11/19 22:22 04/12/19 03:30 White Blood Count 14.2 x10^3/uL (4.0-11.0) 16.2 x10^3/uL (4.0-11.0) Red Blood Count 3.77 x10^6/uL (4.30-5.70) 3.91 x10^6/uL (4.30-5.70) 3.89 x10^6/uL (4.30-5.70) Hemoglobin 9.4 g/dL (13.0-17.5) 9.5 g/dL (13.0-17.5) Hematocrit 28.5 % (39.0-53.0) 29.3 % (39.0-53.0) Mean Corpuscular Volume 76 fL (79-100) 75 fL (79-100) Mean Corpuscular Hemoglobin 25 pg (25-35) 24 pg (25-35) Mean Corpuscular Hemoglobin Concent 33 g/dL (31-37) 33 g/dL (31-37) Red Cell Distribution Width 16.4 % (11.5-14.5) 16.4 % (11.5-14.5) Platelet Count 271 x10^3/uL (140-400) 277 x10^3/uL (140-400) Neutrophils (%) (Auto) 79 % (31-73) 82 % (31-73) Lymphocytes (%) (Auto) 14 % (24-48) 12 % (24-48) Monocytes (%) (Auto) 5 % (0-9) 5 % (0-9) Eosinophils (%) (Auto) 1 % (0-3) 1 % (0-3) Basophils (%) (Auto) 1 % (0-3) 1 % (0-3) Neutrophils # (Auto) 11.2 x10^3/uL (1.8-7.7) 13.3 x10^3/uL (1.8-7.7) Lymphocytes # (Auto) 2.0 x10^3/uL (1.0-4.8) 1.9 x10^3/uL (1.0-4.8) Monocytes # (Auto) 0.7 x10^3/uL (0.0-1.1) 0.8 x10^3/uL (0.0-1.1) Eosinophils # (Auto) 0.2 x10^3/uL (0.0-0.7) 0.1 x10^3/uL (0.0-0.7) Basophils # (Auto) 0.2 x10^3/uL (0.0-0.2) 0.1 x10^3/uL (0.0-0.2) Sodium Level 135 mmol/L (136-145) 137 mmol/L (136-145) Potassium Level 3.3 mmol/L (3.5-5.1) 3.6 mmol/L (3.5-5.1) Chloride Level 97 mmol/L (98-107) 97 mmol/L (98-107) Carbon Dioxide Level 29 mmol/L (21-32) 31 mmol/L (21-32) Anion Gap 9 (6-14) 9 (6-14) Blood Urea Nitrogen 37 mg/dL (8-26) 36 mg/dL (8-26) Creatinine 3.1 mg/dL (0.7-1.3) 3.1 mg/dL (0.7-1.3) Estimated GFR (Cockcroft-Gault) 22.7 22.7 BUN/Creatinine Ratio 12 (6-20) Glucose Level 104 mg/dL (70-99) 123 mg/dL (70-99) Calcium Level 9.0 mg/dL (8.5-10.1) 9.2 mg/dL (8.5-10.1) Total Bilirubin 0.8 mg/dL (0.2-1.0) Aspartate Amino Transf (AST/SGOT) 24 U/L (15-37) Alanine Aminotransferase (ALT/SGPT) 17 U/L (16-63) Alkaline Phosphatase 97 U/L (46-116) Troponin I Quantitative 0.116 ng/mL (0.000-0.055) 0.114 ng/mL (0.000-0.055) 0.093 ng/mL (0.000-0.055) WB-Aer-S-Type Natriuretic Peptide 8397 pg/mL (0-124) Total Protein 6.9 g/dL (6.4-8.2) Albumin 3.2 g/dL (3.4-5.0) 3.4 g/dL (3.4-5.0) Albumin/Globulin Ratio 0.9 (1.0-1.7) Urine Collection Type Unknown Urine Color Yellow Urine Clarity Clear Urine pH 6.0 Urine Specific [place] 1.015 Urine Protein >=300 mg/dL (NEG-TRACE) Urine Glucose (UA) Negative mg/dL (NEG) Urine Ketones (Stick) Negative mg/dL (NEG) Urine Blood Small (NEG) Urine Nitrite Negative (NEG) Urine Bilirubin Negative (NEG) Urine Urobilinogen Dipstick 0.2 mg/dL (0.2 mg/dL) Urine Leukocyte Esterase Negative (NEG) Urine RBC 1-2 /HPF (0-2) Urine WBC 1-4 /HPF (0-4) Urine Squamous Epithelial Cells Few /LPF Urine Bacteria Few /HPF (0-FEW) Urine Mucus Slight /LPF Urine Random Creatinine 124.6 mg/dL (Not Establ.) Urine Random Total Protein 351.4 mg/dL (Not Establ.) Urine Opiates Screen Neg (NEG) Urine Methadone Screen Neg (NEG) Urine Barbiturates Neg (NEG) Urine Phencyclidine Screen Neg (NEG) Urine Amphetamine/Methamphetamine Neg (NEG) Urine Benzodiazepines Screen Neg (NEG) Urine Cocaine Screen Neg (NEG) Urine Cannabinoids Screen Pos (NEG) Urine Ethyl Alcohol Neg (NEG) Absolute Reticulocyte Count 0.191 x10^6/uL (0.020-0.120) Percent Reticulocyte Count 4.9 % (0.5-2.3) Immature Reticulocyte Fraction 0.59 (0.20-0.60) Magnesium Level 1.9 mg/dL (1.8-2.4) Iron Level 30 ug/dL (65-175) Total Iron Binding Capacity 365 ug/dL (250-450) Iron Saturation 8 % (15-34) Lactate Dehydrogenase 325 U/L (85-227) Procalcitonin < 0.10 ng/mL (0.00-0.10) Thyroid Stimulating Hormone (TSH) 3.738 uIU/mL (0.358-3.74) Prothrombin Time 14.4 SEC (11.7-14.0) Prothromb Time International Ratio 1.2 (0.8-1.1) Activated Partial Thromboplast Time 32 SEC (24-38) Phosphorus Level 5.6 mg/dL (2.6-4.7) Triglycerides Level 99 mg/dL (0-150) Cholesterol Level 173 mg/dL (0-200) LDL Cholesterol, Calculated 117 mg/dL (0-100) VLDL Cholesterol, Calculated 20 mg/dL (0-40) Non-HDL Cholesterol Calculated 137 mg/dL (0-129) HDL Cholesterol 36 mg/dL (40-60) Cholesterol/HDL Ratio 4.8 Laboratory Tests Test 04/11/19 16:12 04/11/19 16:28 04/11/19 22:22 04/12/19 03:30 White Blood Count 14.2 x10^3/uL (4.0-11.0) 16.2 x10^3/uL (4.0-11.0) Red Blood Count 3.77 x10^6/uL (4.30-5.70) 3.91 x10^6/uL (4.30-5.70) 3.89 x10^6/uL (4.30-5.70) Hemoglobin 9.4 g/dL (13.0-17.5) 9.5 g/dL (13.0-17.5) Hematocrit 28.5 % (39.0-53.0) 29.3 % (39.0-53.0) Mean Corpuscular Volume 76 fL (79-100) 75 fL (79-100) Mean Corpuscular Hemoglobin 25 pg (25-35) 24 pg (25-35) Mean Corpuscular Hemoglobin Concent 33 g/dL (31-37) 33 g/dL (31-37) Red Cell Distribution Width 16.4 % (11.5-14.5) 16.4 % (11.5-14.5) Platelet Count 271 x10^3/uL (140-400) 277 x10^3/uL (140-400) Neutrophils (%) (Auto) 79 % (31-73) 82 % (31-73) Lymphocytes (%) (Auto) 14 % (24-48) 12 % (24-48) Monocytes (%) (Auto) 5 % (0-9) 5 % (0-9) Eosinophils (%) (Auto) 1 % (0-3) 1 % (0-3) Basophils (%) (Auto) 1 % (0-3) 1 % (0-3) Neutrophils # (Auto) 11.2 x10^3/uL (1.8-7.7) 13.3 x10^3/uL (1.8-7.7) Lymphocytes # (Auto) 2.0 x10^3/uL (1.0-4.8) 1.9 x10^3/uL (1.0-4.8) Monocytes # (Auto) 0.7 x10^3/uL (0.0-1.1) 0.8 x10^3/uL (0.0-1.1) Eosinophils # (Auto) 0.2 x10^3/uL (0.0-0.7) 0.1 x10^3/uL (0.0-0.7) Basophils # (Auto) 0.2 x10^3/uL (0.0-0.2) 0.1 x10^3/uL (0.0-0.2) Sodium Level 135 mmol/L (136-145) 137 mmol/L (136-145) Potassium Level 3.3 mmol/L (3.5-5.1) 3.6 mmol/L (3.5-5.1) Chloride Level 97 mmol/L (98-107) 97 mmol/L (98-107) Carbon Dioxide Level 29 mmol/L (21-32) 31 mmol/L (21-32) Anion Gap 9 (6-14) 9 (6-14) Blood Urea Nitrogen 37 mg/dL (8-26) 36 mg/dL (8-26) Creatinine 3.1 mg/dL (0.7-1.3) 3.1 mg/dL (0.7-1.3) Estimated GFR (Cockcroft-Gault) 22.7 22.7 BUN/Creatinine Ratio 12 (6-20) Glucose Level 104 mg/dL (70-99) 123 mg/dL (70-99) Calcium Level 9.0 mg/dL (8.5-10.1) 9.2 mg/dL (8.5-10.1) Total Bilirubin 0.8 mg/dL (0.2-1.0) Aspartate Amino Transf (AST/SGOT) 24 U/L (15-37) Alanine Aminotransferase (ALT/SGPT) 17 U/L (16-63) Alkaline Phosphatase 97 U/L (46-116) Troponin I Quantitative 0.116 ng/mL (0.000-0.055) 0.114 ng/mL (0.000-0.055) 0.093 ng/mL (0.000-0.055) VA-Rux-U-Type Natriuretic Peptide 8397 pg/mL (0-124) Total Protein 6.9 g/dL (6.4-8.2) Albumin 3.2 g/dL (3.4-5.0) 3.4 g/dL (3.4-5.0) Albumin/Globulin Ratio 0.9 (1.0-1.7) Urine Collection Type Unknown Urine Color Yellow Urine Clarity Clear Urine pH 6.0 Urine Specific [place] 1.015 Urine Protein >=300 mg/dL (NEG-TRACE) Urine Glucose (UA) Negative mg/dL (NEG) Urine Ketones (Stick) Negative mg/dL (NEG) Urine Blood Small (NEG) Urine Nitrite Negative (NEG) Urine Bilirubin Negative (NEG) Urine Urobilinogen Dipstick 0.2 mg/dL (0.2 mg/dL) Urine Leukocyte Esterase Negative (NEG) Urine RBC 1-2 /HPF (0-2) Urine WBC 1-4 /HPF (0-4) Urine Squamous Epithelial Cells Few /LPF Urine Bacteria Few /HPF (0-FEW) Urine Mucus Slight /LPF Urine Random Creatinine 124.6 mg/dL (Not Establ.) Urine Random Total Protein 351.4 mg/dL (Not Establ.) Urine Opiates Screen Neg (NEG) Urine Methadone Screen Neg (NEG) Urine Barbiturates Neg (NEG) Urine Phencyclidine Screen Neg (NEG) Urine Amphetamine/Methamphetamine Neg (NEG) Urine Benzodiazepines Screen Neg (NEG) Urine Cocaine Screen Neg (NEG) Urine Cannabinoids Screen Pos (NEG) Urine Ethyl Alcohol Neg (NEG) Absolute Reticulocyte Count 0.191 x10^6/uL (0.020-0.120) Percent Reticulocyte Count 4.9 % (0.5-2.3) Immature Reticulocyte Fraction 0.59 (0.20-0.60) Magnesium Level 1.9 mg/dL (1.8-2.4) Iron Level 30 ug/dL (65-175) Total Iron Binding Capacity 365 ug/dL (250-450) Iron Saturation 8 % (15-34) Lactate Dehydrogenase 325 U/L (85-227) Procalcitonin < 0.10 ng/mL (0.00-0.10) Thyroid Stimulating Hormone (TSH) 3.738 uIU/mL (0.358-3.74) Prothrombin Time 14.4 SEC (11.7-14.0) Prothromb Time International Ratio 1.2 (0.8-1.1) Activated Partial Thromboplast Time 32 SEC (24-38) Phosphorus Level 5.6 mg/dL (2.6-4.7) Triglycerides Level 99 mg/dL (0-150) Cholesterol Level 173 mg/dL (0-200) LDL Cholesterol, Calculated 117 mg/dL (0-100) VLDL Cholesterol, Calculated 20 mg/dL (0-40) Non-HDL Cholesterol Calculated 137 mg/dL (0-129) HDL Cholesterol 36 mg/dL (40-60) Cholesterol/HDL Ratio 4.8 Medications Current Medications Labetalol HCl (Normodyne Iv Push) 10 mg 1X ONCE IVP Last administered on 04/11/19at 16:32; Start 04/11/19 at 16:00; Stop 04/11/19 at 16:01; Status DC Aspirin (Julian Aspirin) 325 mg 1X ONCE PO Last administered on 04/11/19at 16:31; Start 04/11/19 at 16:00; Stop 04/11/19 at 16:01; Status DC Furosemide (Lasix) 60 mg 1X ONCE IVP Last administered on 04/11/19at 18:05; Start 04/11/19 at 17:45; Stop 04/11/19 at 17:46; Status DC Potassium Chloride (Klor-Con) 20 meq 1X ONCE PO Last administered on 04/11/19at 18:04; Start 04/11/19 at 17:45; Stop 04/11/19 at 17:46; Status DC Ondansetron HCl (Zofran) 4 mg 1X ONCE IV Last administered on 04/11/19at 18:05; Start 04/11/19 at 17:45; Stop 04/11/19 at 17:46; Status DC Ondansetron HCl (Zofran) 4 mg PRN Q8HRS PRN IV NAUSEA/VOMITING; Start 04/11/19 at 17:45; Stop 04/11/19 at 20:23; Status DC Acetaminophen (Tylenol) 650 mg PRN Q4HRS PRN PO FEVER; Start 04/11/19 at 17:45; Stop 04/12/19 at 17:44 Nitroglycerin (Nitro-Bid Oint) 1 inch 1X ONCE TP Last administered on 04/11/19at 18:49; Start 04/11/19 at 18:45; Stop 04/11/19 at 18:46; Status DC Ondansetron HCl (Zofran) 4 mg PRN Q6HRS PRN IV NAUSEA/VOMITING; Start 04/11/19 at 20:30 Labetalol HCl (Normodyne Iv Push) 20 mg PRN Q2HR PRN IVP HYPERTENSION Last administered on 04/11/19at 20:52; Start 04/11/19 at 20:30 Amlodipine Besylate (Norvasc) 5 mg DAILY PO Last administered on 04/12/19at 09:02; Start 04/11/19 at 20:30 Nicardipine HCl 50 mg/Sodium Chloride 250 ml @ 25 mls/hr CONT PRN IV SEE I/O RECORD Last administered on 04/12/19at 07:45; Start 04/11/19 at 20:45 Nitroglycerin (Nitro-Bid Oint) 1 inch Q6HRS TP Last administered on 04/12/19at 06:25; Start 04/11/19 at 20:45; Stop 04/12/19 at 09:44; Status DC Potassium Chloride (Klor-Con) 20 meq 1X ONCE PO Last administered on 04/11/19at 21:20; Start 04/11/19 at 21:15; Stop 04/11/19 at 21:16; Status DC Heparin Sodium (Porcine) (Heparin Sodium) 5,000 unit Q8HRS SQ Last administered on 04/12/19at 06:29; Start 04/11/19 at 22:00 Influenza Virus Vaccine Quadrival (Afluria Quad 2019-20 (3yr Up) Syringe) 0.5 ml ONCE ONCE VAX IM Last administered on 04/12/19at 09:03; Start 04/12/19 at 09:00; Stop 04/12/19 at 09:01; Status DC Hydralazine HCl (Apresoline) 50 mg BID PO Last administered on 04/12/19at 10:25; Start 04/12/19 at 10:00 Isosorbide Mononitrate (Imdur) 30 mg DAILY PO Last administered on 04/12/19at 10:24; Start 04/12/19 at 10:00 Carvedilol (Coreg) 6.25 mg BIDWMEALS PO Last administered on 04/12/19at 11:30; Start 04/12/19 at 10:00 Vitals/I & O Vital Sign - Last 24 Hours 04/11/19 04/11/19 04/11/19 04/11/19 15:32 16:00 16:15 16:32 Temp 98.5 98.5 Pulse 98 90 82 108 Resp 12 14 8 B/P (MAP) 264/154 (190) 235/148 Pulse Ox 94 95 97 O2 Delivery Room Air 04/11/19 04/11/19 04/11/19 04/11/19 16:45 17:00 17:15 17:30 Pulse 82 80 88 95 Resp 14 19 18 22 Pulse Ox 97 97 95 95 04/11/19 04/11/19 04/11/19 04/11/19 18:00 18:15 18:30 18:41 Pulse 95 86 84 85 Resp 8 14 12 21 Pulse Ox 96 96 95 94 04/11/19 04/11/19 04/11/19 04/11/19 18:49 19:00 19:01 19:11 Temp 98.5 98.5 Pulse 90 93 88 86 Resp 20 20 14 B/P (MAP) 226/140 244/138 (173) Pulse Ox 92 94 93 O2 Delivery Room Air 04/11/19 04/11/19 04/11/19 04/11/19 19:21 20:00 20:18 20:23 Pulse 88 94 92 Resp 17 B/P (MAP) 185/92 (123) 244/138 (173) Pulse Ox 94 O2 Delivery Room Air 04/11/19 04/11/19 04/11/19 04/11/19 20:26 20:49 20:52 21:22 Pulse 92 99 99 82 B/P (MAP) 268/149 (188) 268/149 268/149 230/145 (173) 04/11/19 04/11/19 04/11/19 04/11/19 21:37 21:52 22:07 22:22 Pulse 78 82 90 98 B/P (MAP) 224/133 (163) 224/127 (159) 214/121 (152) 190/88 (122) 04/11/19 04/11/19 04/11/19 04/11/19 22:24 22:37 22:52 23:00 Temp 97.6 97.6 Pulse 82 78 84 82 Resp 12 B/P (MAP) 188/103 (131) 224/133 (163) 164/91 (115) 188/103 (131) Pulse Ox 92 O2 Delivery Room Air 04/11/19 04/11/19 04/12/19 04/12/19 23:22 23:52 00:14 02:12 Pulse 89 95 95 96 B/P (MAP) 176/91 (119) 188/94 (125) 176/96 (122) 170/85 (113) 04/12/19 04/12/19 04/12/19 04/12/19 02:27 02:42 02:57 03:00 Temp 97.9 97.9 Pulse 94 96 92 91 Resp 16 B/P (MAP) 167/82 (110) 165/85 (111) 175/84 (114) 170/85 (113) Pulse Ox 93 O2 Delivery Nasal Cannula 04/12/19 04/12/19 04/12/19 04/12/19 03:12 03:27 03:42 03:57 Pulse 90 90 92 90 B/P (MAP) 169/91 (117) 170/85 (113) 177/93 (121) 159/87 (111) 04/12/19 04/12/19 04/12/19 04/12/19 04:12 04:27 04:42 04:57 Pulse 93 92 96 96 B/P (MAP) 158/83 (108) 154/87 (109) 169/87 (114) 159/79 (105) 04/12/19 04/12/19 04/12/19 04/12/19 05:12 05:42 06:12 06:25 Pulse 94 93 94 101 B/P (MAP) 161/87 (111) 150/84 (106) 169/89 (115) 169/89 04/12/19 04/12/19 04/12/19 04/12/19 06:57 08:00 09:02 10:17 Temp 98.0 97.9 98.0 97.9 Pulse 99 99 92 Resp 18 18 B/P (MAP) 150/78 (102) 138/82 173/64 (100) Pulse Ox 88 96 O2 Delivery Nasal Cannula Room Air Nasal Cannula O2 Flow Rate 2.0 2.0 2.0 04/12/19 04/12/19 04/12/19 10:24 10:25 11:30 Pulse 92 92 94 B/P (MAP) 173/64 173/64 157/62 Intake and Output 04/11/19 04/11/19 04/12/19 14:59 22:59 06:59 Intake Total 480 ml Output Total 1225 ml 1425 ml Balance -745 ml -1425 ml JEFF ENGLAND MD Apr 12, 2019 12:16
--- NOTE | 2019-04-12 13:07 | PDOC2 ---
CARDIOLOGY CONSULT NOTE CHEIF COMPLAINT: Elevated blood pressure and positive troponin HPI: Pleasant 39-year-old man without any significant past medical history except hypertension and asthma presented to the PCPs office and was noted to be sig nificant hypertensive and he was transmitted to the ER. Upon arrival his systolic blood pressure was above 240 and he was admitted for further evaluation treatment. He's been treated with Cardene overnight. Currently denies any chest pain. He does not have any significant lifestyle limited symptoms at home. No recent stressors or changes to his medications or other acute concerns. He also has renal failure and has been evaluated by the nephrology service. PMHX: Hypertension Morbid obesity Asthma SOCHX: No alcohol, tobacco or illicit drug use. 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 FAMHX: Notable for hypertension CURRENT MEDS: Current Medications Medications (Trade) Dose Ordered Sig/Radha Route PRN Reason Start Time Stop Time Status Last Admin Dose Admin Labetalol HCl (Normodyne Iv Push) 10 mg 1X ONCE IVP 04/11/19 16:00 04/11/19 16:01 DC 04/11/19 16:32 Aspirin (Julian Aspirin) 325 mg 1X ONCE PO 04/11/19 16:00 04/11/19 16:01 DC 04/11/19 16:31 Furosemide (Lasix) 60 mg 1X ONCE IVP 04/11/19 17:45 04/11/19 17:46 DC 04/11/19 18:05 Potassium Chloride (Klor-Con) 20 meq 1X ONCE PO 04/11/19 17:45 04/11/19 17:46 DC 04/11/19 18:04 Ondansetron HCl (Zofran) 4 mg 1X ONCE IV 04/11/19 17:45 04/11/19 17:46 DC 04/11/19 18:05 Nitroglycerin (Nitro-Bid Oint) 1 inch 1X ONCE TP 04/11/19 18:45 04/11/19 18:46 DC 04/11/19 18:49 Labetalol HCl (Normodyne Iv Push) 20 mg PRN Q2HR PRN IVP HYPERTENSION 04/11/19 20:30 04/11/19 20:52 Amlodipine Besylate (Norvasc) 5 mg DAILY PO 04/11/19 20:30 04/12/19 09:02 Nicardipine HCl 50 mg/Sodium Chloride 250 ml @ 25 mls/hr CONT PRN IV SEE I/O RECORD 04/11/19 20:45 04/12/19 07:45 Nitroglycerin (Nitro-Bid Oint) 1 inch Q6HRS TP 04/11/19 20:45 04/12/19 09:44 DC 04/12/19 06:25 Potassium Chloride (Klor-Con) 20 meq 1X ONCE PO 04/11/19 21:15 04/11/19 21:16 DC 04/11/19 21:20 Heparin Sodium (Porcine) (Heparin Sodium) 5,000 unit Q8HRS SQ 04/11/19 22:00 04/12/19 06:29 Influenza Virus Vaccine Quadrival (Afluria Quad 2019-20 (3yr Up) Syringe) 0.5 ml ONCE ONCE VAX IM 04/12/19 09:00 04/12/19 09:01 DC 04/12/19 09:03 Hydralazine HCl (Apresoline) 50 mg BID PO 04/12/19 10:00 04/12/19 10:25 Isosorbide Mononitrate (Imdur) 30 mg DAILY PO 04/12/19 10:00 04/12/19 10:24 Carvedilol (Coreg) 6.25 mg BIDWMEALS PO 04/12/19 10:00 04/12/19 11:30 ALLERGIES: Allergies Coded Allergies Type Severity Reaction Last Updated Verified No Known Drug Allergies 04/11/19 No ROS: Negative unless otherwise mentioned above in history of present illness PHYSICAL EXAM: Vital Signs/I&O: Vital Signs Date Time Temp Pulse Resp B/P (MAP) Pulse Ox O2 Delivery O2 Flow Rate FiO2 04/12/19 11:30 94 157/62 04/12/19 10:17 97.9 18 96 Nasal Cannula 2.0 97.9 I & O 04/11/19 04/11/19 04/12/19 15:00 23:00 07:00 Intake Total 480 ml Output Total 1225 ml 1425 ml Balance -745 ml -1425 ml Physical Exam: The patient appeared well nourished and normally developed. Head exam is unremarkable. No scleral icterus or corneal arcus noted. Neck is without jugular venous distension, thyromegaly, or carotid bruits. Carotid upstrokes are brisk bilaterally. Lungs are clear to auscultation and percussion. Cardiac exam reveals the PMI to be normally sized and situated. Rhythm is regular. First and second heart sounds normal. No murmurs, rubs or gallops. Abdominal exam reveals normal bowel sounds, no masses, no organomegaly and no aortic enlargement. Extremities are nonedematous and both femoral and pedal pulses are normal. Msk: No traumua Neuro: No focal deficits DIAGNOSTIC TESTING: Creatinine 3.1 EKG is unremarkable Troponin is minimally elevated Blood pressure is much better controlled Lab Laboratory Tests Test 04/11/19 16:12 04/11/19 16:28 04/11/19 22:22 04/12/19 03:30 White Blood Count 14.2 x10^3/uL (4.0-11.0) H 16.2 x10^3/uL (4.0-11.0) H Red Blood Count 3.77 x10^6/uL (4.30-5.70) L 3.91 x10^6/uL (4.30-5.70) L 3.89 x10^6/uL (4.30-5.70) L Hemoglobin 9.4 g/dL (13.0-17.5) L 9.5 g/dL (13.0-17.5) L Hematocrit 28.5 % (39.0-53.0) L 29.3 % (39.0-53.0) L Mean Corpuscular Volume 76 fL (79-100) L 75 fL (79-100) L Mean Corpuscular Hemoglobin 25 pg (25-35) 24 pg (25-35) L Mean Corpuscular Hemoglobin Concent 33 g/dL (31-37) 33 g/dL (31-37) Red Cell Distribution Width 16.4 % (11.5-14.5) H 16.4 % (11.5-14.5) H Platelet Count 271 x10^3/uL (140-400) 277 x10^3/uL (140-400) Neutrophils (%) (Auto) 79 % (31-73) H 82 % (31-73) H Lymphocytes (%) (Auto) 14 % (24-48) L 12 % (24-48) L Monocytes (%) (Auto) 5 % (0-9) 5 % (0-9) Eosinophils (%) (Auto) 1 % (0-3) 1 % (0-3) Basophils (%) (Auto) 1 % (0-3) 1 % (0-3) Neutrophils # (Auto) 11.2 x10^3/uL (1.8-7.7) H 13.3 x10^3/uL (1.8-7.7) H Lymphocytes # (Auto) 2.0 x10^3/uL (1.0-4.8) 1.9 x10^3/uL (1.0-4.8) Monocytes # (Auto) 0.7 x10^3/uL (0.0-1.1) 0.8 x10^3/uL (0.0-1.1) Eosinophils # (Auto) 0.2 x10^3/uL (0.0-0.7) 0.1 x10^3/uL (0.0-0.7) Basophils # (Auto) 0.2 x10^3/uL (0.0-0.2) 0.1 x10^3/uL (0.0-0.2) Sodium Level 135 mmol/L (136-145) L 137 mmol/L (136-145) Potassium Level 3.3 mmol/L (3.5-5.1) L 3.6 mmol/L (3.5-5.1) Chloride Level 97 mmol/L (98-107) L 97 mmol/L (98-107) L Carbon Dioxide Level 29 mmol/L (21-32) 31 mmol/L (21-32) Anion Gap 9 (6-14) 9 (6-14) Blood Urea Nitrogen 37 mg/dL (8-26) H 36 mg/dL (8-26) H Creatinine 3.1 mg/dL (0.7-1.3) H 3.1 mg/dL (0.7-1.3) H Estimated GFR (Cockcroft-Gault) 22.7 22.7 BUN/Creatinine Ratio 12 (6-20) Glucose Level 104 mg/dL (70-99) H 123 mg/dL (70-99) H Calcium Level 9.0 mg/dL (8.5-10.1) 9.2 mg/dL (8.5-10.1) Total Bilirubin 0.8 mg/dL (0.2-1.0) Aspartate Amino Transf (AST/SGOT) 24 U/L (15-37) Alkaline Phosphatase 97 U/L (46-116) Total Protein 6.9 g/dL (6.4-8.2) Albumin 3.2 g/dL (3.4-5.0) L 3.4 g/dL (3.4-5.0) Albumin/Globulin Ratio 0.9 (1.0-1.7) L Urine Collection Type Unknown Urine Color Yellow Urine Clarity Clear Urine pH 6.0 Urine Specific [place] 1.015 Urine Protein >=300 mg/dL (NEG-TRACE) Urine Glucose (UA) Negative mg/dL (NEG) Urine Ketones (Stick) Negative mg/dL (NEG) Urine Blood Small (NEG) Urine Nitrite Negative (NEG) Urine Bilirubin Negative (NEG) Urine Urobilinogen Dipstick 0.2 mg/dL (0.2 mg/dL) Urine Leukocyte Esterase Negative (NEG) Urine RBC 1-2 /HPF (0-2) Urine WBC 1-4 /HPF (0-4) Urine Squamous Epithelial Cells Few /LPF Urine Bacteria Few /HPF (0-FEW) Urine Mucus Slight /LPF Urine Random Creatinine 124.6 mg/dL (Not Establ.) Urine Random Total Protein 351.4 mg/dL (Not Establ.) Urine Opiates Screen Neg (NEG) Urine Methadone Screen Neg (NEG) Urine Barbiturates Neg (NEG) Urine Phencyclidine Screen Neg (NEG) Urine Amphetamine/Methamphetamine Neg (NEG) Urine Benzodiazepines Screen Neg (NEG) Urine Cocaine Screen Neg (NEG) Urine Cannabinoids Screen Pos (NEG) Urine Ethyl Alcohol Neg (NEG) Absolute Reticulocyte Count 0.191 x10^6/uL (0.020-0.120) Percent Reticulocyte Count 4.9 % (0.5-2.3) H Immature Reticulocyte Fraction 0.59 (0.20-0.60) Haptoglobin 119 mg/dL (34-200) Iron Level 30 ug/dL (65-175) L Total Iron Binding Capacity 365 ug/dL (250-450) Iron Saturation 8 % (15-34) L Lactate Dehydrogenase 325 U/L (85-227) H Procalcitonin < 0.10 ng/mL (0.00-0.10) Thyroid Stimulating Hormone (TSH) 3.738 uIU/mL (0.358-3.74) Prothrombin Time 14.4 SEC (11.7-14.0) H Prothromb Time International Ratio 1.2 (0.8-1.1) H Activated Partial Thromboplast Time 32 SEC (24-38) Phosphorus Level 5.6 mg/dL (2.6-4.7) H Creatine Kinase 240 U/L (39-308) Cholesterol Level 173 mg/dL (0-200) LDL Cholesterol, Calculated 117 mg/dL (0-100) H VLDL Cholesterol, Calculated 20 mg/dL (0-40) Non-HDL Cholesterol Calculated 137 mg/dL (0-129) H Cholesterol/HDL Ratio 4.8 Laboratory Tests 04/12/19 03:30 ASSESSMENT: 1. Hypertensive emergencies 2. Acute renal failure 3. Elevated troponin likely type II secondary to hypertension PLAN: 1. We will plan for initiation of carvedilol, hydralazine and Imdur therapy. Await resolution of his renal failure 2. Check echocardiogram. Thank you for this consultation. We will follow along closely. Further treatment decisions based on echocardiography. TORREY LEVIN MD Apr 12, 2019 13:07
--- NOTE | 2019-04-12 15:33 | PDOC2 ---
CONSULT Date of Consult Date of Consult DATE: 04/12/19 TIME: 15:09 Reason for Consult Reason for Consult: RENAL FAILURE Referring Physician Referring Physician: EMMAFEL Identification/Chief Complaint Chief Complaint SOB AND WEAKNESS Source Source: Chart review, Patient History of Present Illness Reason for Visit: THIS IS A 39 YR OLD WITH SOB AND WEAKNESS FOR ABOUT A WEEK. ON PRESENTATION NOTED TO BE VERY HYPERTENSIVE. CR OF 3.1. NO KNOWN HX OF CKD. STATED THAT HE HAD HTN DIAGNOSED SEVERAL YEARS AGO BUT STOPPED TAKING HIS MEDS. NO NEPHROTOXINS NOTED. NO NSAIDS, NO HX OF ANY KIDNEY OR BLADDER SURGERIES HEMATURIA DYSURIA OR FREQUENCY NOTED. NO HX OF DM. ALSO NOTED TO BE ANEMIC AND HAS IRON DEFICIENCY. NO PROBLEMS WITH VOIDING. NO HX OF OF STONES Past Medical History Cardiovascular: No pertinent hx, HTN Pulmonary: Asthma GI: No pertinent hx Heme/Onc: No pertinent hx Hepatobiliary: No pertinent hx Psych: No pertinent hx Rheumatologic: No pertinent hx Infectious disease: No pertinent hx ENT: No pertinent hx Renal/: No pertinent hx Endocrine: No pertinent hx Dermatology: No pertinent hx Past Surgical History Past Surgical History: No pertinent history Family History Family History: Hypertension Social History Social History: Parent (Father - HTN), Grandparents (Paternal Grandfather - HTN) No ALCOHOL: occassional Drugs: Marijuana Current Problem List Problem List Problems Medical Problems: (1) TERI (acute kidney injury) Status: Acute (2) Elevated troponin Status: Acute (3) HTN (hypertension) Status: Acute Current Medications Current Medications Current Medications Labetalol HCl (Normodyne Iv Push) 10 mg 1X ONCE IVP Last administered on 04/11/19at 16:32; Start 04/11/19 at 16:00; Stop 04/11/19 at 16:01; Status DC Aspirin (Julian Aspirin) 325 mg 1X ONCE PO Last administered on 04/11/19at 16:31; Start 04/11/19 at 16:00; Stop 04/11/19 at 16:01; Status DC Furosemide (Lasix) 60 mg 1X ONCE IVP Last administered on 04/11/19at 18:05; Start 04/11/19 at 17:45; Stop 04/11/19 at 17:46; Status DC Potassium Chloride (Klor-Con) 20 meq 1X ONCE PO Last administered on 04/11/19at 18:04; Start 04/11/19 at 17:45; Stop 04/11/19 at 17:46; Status DC Ondansetron HCl (Zofran) 4 mg 1X ONCE IV Last administered on 04/11/19at 18:05; Start 04/11/19 at 17:45; Stop 04/11/19 at 17:46; Status DC Ondansetron HCl (Zofran) 4 mg PRN Q8HRS PRN IV NAUSEA/VOMITING; Start 04/11/19 at 17:45; Stop 04/11/19 at 20:23; Status DC Acetaminophen (Tylenol) 650 mg PRN Q4HRS PRN PO FEVER; Start 04/11/19 at 17:45; Stop 04/12/19 at 17:44 Nitroglycerin (Nitro-Bid Oint) 1 inch 1X ONCE TP Last administered on 04/11/19at 18:49; Start 04/11/19 at 18:45; Stop 04/11/19 at 18:46; Status DC Ondansetron HCl (Zofran) 4 mg PRN Q6HRS PRN IV NAUSEA/VOMITING; Start 04/11/19 at 20:30 Labetalol HCl (Normodyne Iv Push) 20 mg PRN Q2HR PRN IVP HYPERTENSION Last administered on 04/11/19at 20:52; Start 04/11/19 at 20:30 Amlodipine Besylate (Norvasc) 5 mg DAILY PO Last administered on 04/12/19at 09:02; Start 04/11/19 at 20:30 Nicardipine HCl 50 mg/Sodium Chloride 250 ml @ 25 mls/hr CONT PRN IV SEE I/O RECORD Last administered on 04/12/19at 14:22; Start 04/11/19 at 20:45 Nitroglycerin (Nitro-Bid Oint) 1 inch Q6HRS TP Last administered on 04/12/19at 06:25; Start 04/11/19 at 20:45; Stop 04/12/19 at 09:44; Status DC Potassium Chloride (Klor-Con) 20 meq 1X ONCE PO Last administered on 04/11/19at 21:20; Start 04/11/19 at 21:15; Stop 04/11/19 at 21:16; Status DC Heparin Sodium (Porcine) (Heparin Sodium) 5,000 unit Q8HRS SQ Last administered on 11/2/19at 14:28; Start 04/11/19 at 22:00 Influenza Virus Vaccine Quadrival (Afluria Quad 2019-20 (3yr Up) Syringe) 0.5 ml ONCE ONCE VAX IM Last administered on 04/12/19at 09:03; Start 04/12/19 at 09:00; Stop 04/12/19 at 09:01; Status DC Hydralazine HCl (Apresoline) 50 mg BID PO Last administered on 04/12/19at 10:25; Start 04/12/19 at 10:00 Isosorbide Mononitrate (Imdur) 30 mg DAILY PO Last administered on 04/12/19at 10:24; Start 04/12/19 at 10:00 Carvedilol (Coreg) 6.25 mg BIDWMEALS PO Last administered on 04/12/19at 11:30; Start 04/12/19 at 10:00 Allergies Allergies: Coded Allergies: No Known Drug Allergies (Unverified , 04/11/19) ROS General: YES: Fatigue, Malaise Respiratory: YES: Shortness of breath Gastrointestinal: Yes Constipation Genitourinary: YES Other (NOCTURIA) Musculoskeletal: Yes Muscular Weakness Neurological: Yes Weakness Skin: Yes Dry Skin Physical Exam General: Alert, Oriented X3, Cooperative, No acute distress HEENT: Atraumatic, PERRLA Lungs: Clear to auscultation Heart: Regular rate Abdomen: Normal bowel sounds, Soft Extremities: No clubbing, No cyanosis Skin: No breakdown Neuro: Normal speech, Sensation intact Psych/Mental Status: Mental status NL, Mood NL MUSCULOSKELETAL: No joint tenderness, No deformity Vitals VITALS Vital Signs Date Time Temp Pulse Resp B/P (MAP) Pulse Ox O2 Delivery O2 Flow Rate FiO2 04/12/19 14:09 98.3 84 18 175/67 (103) 92 Nasal Cannula 2.0 98.3 Labs Labs Laboratory Tests Test 04/11/19 16:12 04/11/19 16:28 04/11/19 22:22 04/12/19 03:30 White Blood Count 14.2 x10^3/uL (4.0-11.0) 16.2 x10^3/uL (4.0-11.0) Red Blood Count 3.77 x10^6/uL (4.30-5.70) 3.91 x10^6/uL (4.30-5.70) 3.89 x10^6/uL (4.30-5.70) Hemoglobin 9.4 g/dL (13.0-17.5) 9.5 g/dL (13.0-17.5) Hematocrit 28.5 % (39.0-53.0) 29.3 % (39.0-53.0) Mean Corpuscular Volume 76 fL (79-100) 75 fL (79-100) Mean Corpuscular Hemoglobin 25 pg (25-35) 24 pg (25-35) Mean Corpuscular Hemoglobin Concent 33 g/dL (31-37) 33 g/dL (31-37) Red Cell Distribution Width 16.4 % (11.5-14.5) 16.4 % (11.5-14.5) Platelet Count 271 x10^3/uL (140-400) 277 x10^3/uL (140-400) Neutrophils (%) (Auto) 79 % (31-73) 82 % (31-73) Lymphocytes (%) (Auto) 14 % (24-48) 12 % (24-48) Monocytes (%) (Auto) 5 % (0-9) 5 % (0-9) Eosinophils (%) (Auto) 1 % (0-3) 1 % (0-3) Basophils (%) (Auto) 1 % (0-3) 1 % (0-3) Neutrophils # (Auto) 11.2 x10^3/uL (1.8-7.7) 13.3 x10^3/uL (1.8-7.7) Lymphocytes # (Auto) 2.0 x10^3/uL (1.0-4.8) 1.9 x10^3/uL (1.0-4.8) Monocytes # (Auto) 0.7 x10^3/uL (0.0-1.1) 0.8 x10^3/uL (0.0-1.1) Eosinophils # (Auto) 0.2 x10^3/uL (0.0-0.7) 0.1 x10^3/uL (0.0-0.7) Basophils # (Auto) 0.2 x10^3/uL (0.0-0.2) 0.1 x10^3/uL (0.0-0.2) Sodium Level 135 mmol/L (136-145) 137 mmol/L (136-145) Potassium Level 3.3 mmol/L (3.5-5.1) 3.6 mmol/L (3.5-5.1) Chloride Level 97 mmol/L (98-107) 97 mmol/L (98-107) Carbon Dioxide Level 29 mmol/L (21-32) 31 mmol/L (21-32) Anion Gap 9 (6-14) 9 (6-14) Blood Urea Nitrogen 37 mg/dL (8-26) 36 mg/dL (8-26) Creatinine 3.1 mg/dL (0.7-1.3) 3.1 mg/dL (0.7-1.3) Estimated GFR (Cockcroft-Gault) 22.7 22.7 BUN/Creatinine Ratio 12 (6-20) Glucose Level 104 mg/dL (70-99) 123 mg/dL (70-99) Calcium Level 9.0 mg/dL (8.5-10.1) 9.2 mg/dL (8.5-10.1) Total Bilirubin 0.8 mg/dL (0.2-1.0) Aspartate Amino Transf (AST/SGOT) 24 U/L (15-37) Alanine Aminotransferase (ALT/SGPT) 17 U/L (16-63) Alkaline Phosphatase 97 U/L (46-116) Troponin I Quantitative 0.116 ng/mL (0.000-0.055) 0.114 ng/mL (0.000-0.055) 0.093 ng/mL (0.000-0.055) NT-Sms-E-Type Natriuretic Peptide 8397 pg/mL (0-124) Total Protein 6.9 g/dL (6.4-8.2) Albumin 3.2 g/dL (3.4-5.0) 3.4 g/dL (3.4-5.0) Albumin/Globulin Ratio 0.9 (1.0-1.7) Urine Collection Type Unknown Urine Color Yellow Urine Clarity Clear Urine pH 6.0 Urine Specific [place] 1.015 Urine Protein >=300 mg/dL (NEG-TRACE) Urine Glucose (UA) Negative mg/dL (NEG) Urine Ketones (Stick) Negative mg/dL (NEG) Urine Blood Small (NEG) Urine Nitrite Negative (NEG) Urine Bilirubin Negative (NEG) Urine Urobilinogen Dipstick 0.2 mg/dL (0.2 mg/dL) Urine Leukocyte Esterase Negative (NEG) Urine RBC 1-2 /HPF (0-2) Urine WBC 1-4 /HPF (0-4) Urine Squamous Epithelial Cells Few /LPF Urine Bacteria Few /HPF (0-FEW) Urine Mucus Slight /LPF Urine Random Creatinine 124.6 mg/dL (Not Establ.) Urine Random Total Protein 351.4 mg/dL (Not Establ.) Urine Opiates Screen Neg (NEG) Urine Methadone Screen Neg (NEG) Urine Barbiturates Neg (NEG) Urine Phencyclidine Screen Neg (NEG) Urine Amphetamine/Methamphetamine Neg (NEG) Urine Benzodiazepines Screen Neg (NEG) Urine Cocaine Screen Neg (NEG) Urine Cannabinoids Screen Pos (NEG) Urine Ethyl Alcohol Neg (NEG) Absolute Reticulocyte Count 0.191 x10^6/uL (0.020-0.120) Percent Reticulocyte Count 4.9 % (0.5-2.3) Immature Reticulocyte Fraction 0.59 (0.20-0.60) Haptoglobin 119 mg/dL (34-200) Magnesium Level 1.9 mg/dL (1.8-2.4) Iron Level 30 ug/dL (65-175) Total Iron Binding Capacity 365 ug/dL (250-450) Iron Saturation 8 % (15-34) Lactate Dehydrogenase 325 U/L (85-227) Procalcitonin < 0.10 ng/mL (0.00-0.10) Thyroid Stimulating Hormone (TSH) 3.738 uIU/mL (0.358-3.74) Prothrombin Time 14.4 SEC (11.7-14.0) Prothromb Time International Ratio 1.2 (0.8-1.1) Activated Partial Thromboplast Time 32 SEC (24-38) Phosphorus Level 5.6 mg/dL (2.6-4.7) Creatine Kinase 240 U/L (39-308) Triglycerides Level 99 mg/dL (0-150) Cholesterol Level 173 mg/dL (0-200) LDL Cholesterol, Calculated 117 mg/dL (0-100) VLDL Cholesterol, Calculated 20 mg/dL (0-40) Non-HDL Cholesterol Calculated 137 mg/dL (0-129) HDL Cholesterol 36 mg/dL (40-60) Cholesterol/HDL Ratio 4.8 Test 04/12/19 11:50 Troponin I Quantitative 0.195 ng/mL (0.000-0.055) Laboratory Tests Test 04/11/19 16:12 04/11/19 16:28 04/11/19 22:22 04/12/19 03:30 White Blood Count 14.2 x10^3/uL (4.0-11.0) 16.2 x10^3/uL (4.0-11.0) Red Blood Count 3.77 x10^6/uL (4.30-5.70) 3.91 x10^6/uL (4.30-5.70) 3.89 x10^6/uL (4.30-5.70) Hemoglobin 9.4 g/dL (13.0-17.5) 9.5 g/dL (13.0-17.5) Hematocrit 28.5 % (39.0-53.0) 29.3 % (39.0-53.0) Mean Corpuscular Volume 76 fL (79-100) 75 fL (79-100) Mean Corpuscular Hemoglobin 25 pg (25-35) 24 pg (25-35) Mean Corpuscular Hemoglobin Concent 33 g/dL (31-37) 33 g/dL (31-37) Red Cell Distribution Width 16.4 % (11.5-14.5) 16.4 % (11.5-14.5) Platelet Count 271 x10^3/uL (140-400) 277 x10^3/uL (140-400) Neutrophils (%) (Auto) 79 % (31-73) 82 % (31-73) Lymphocytes (%) (Auto) 14 % (24-48) 12 % (24-48) Monocytes (%) (Auto) 5 % (0-9) 5 % (0-9) Eosinophils (%) (Auto) 1 % (0-3) 1 % (0-3) Basophils (%) (Auto) 1 % (0-3) 1 % (0-3) Neutrophils # (Auto) 11.2 x10^3/uL (1.8-7.7) 13.3 x10^3/uL (1.8-7.7) Lymphocytes # (Auto) 2.0 x10^3/uL (1.0-4.8) 1.9 x10^3/uL (1.0-4.8) Monocytes # (Auto) 0.7 x10^3/uL (0.0-1.1) 0.8 x10^3/uL (0.0-1.1) Eosinophils # (Auto) 0.2 x10^3/uL (0.0-0.7) 0.1 x10^3/uL (0.0-0.7) Basophils # (Auto) 0.2 x10^3/uL (0.0-0.2) 0.1 x10^3/uL (0.0-0.2) Sodium Level 135 mmol/L (136-145) 137 mmol/L (136-145) Potassium Level 3.3 mmol/L (3.5-5.1) 3.6 mmol/L (3.5-5.1) Chloride Level 97 mmol/L (98-107) 97 mmol/L (98-107) Carbon Dioxide Level 29 mmol/L (21-32) 31 mmol/L (21-32) Anion Gap 9 (6-14) 9 (6-14) Blood Urea Nitrogen 37 mg/dL (8-26) 36 mg/dL (8-26) Creatinine 3.1 mg/dL (0.7-1.3) 3.1 mg/dL (0.7-1.3) Estimated GFR (Cockcroft-Gault) 22.7 22.7 BUN/Creatinine Ratio 12 (6-20) Glucose Level 104 mg/dL (70-99) 123 mg/dL (70-99) Calcium Level 9.0 mg/dL (8.5-10.1) 9.2 mg/dL (8.5-10.1) Total Bilirubin 0.8 mg/dL (0.2-1.0) Aspartate Amino Transf (AST/SGOT) 24 U/L (15-37) Alanine Aminotransferase (ALT/SGPT) 17 U/L (16-63) Alkaline Phosphatase 97 U/L (46-116) Troponin I Quantitative 0.116 ng/mL (0.000-0.055) 0.114 ng/mL (0.000-0.055) 0.093 ng/mL (0.000-0.055) ZF-Plo-E-Type Natriuretic Peptide 8397 pg/mL (0-124) Total Protein 6.9 g/dL (6.4-8.2) Albumin 3.2 g/dL (3.4-5.0) 3.4 g/dL (3.4-5.0) Albumin/Globulin Ratio 0.9 (1.0-1.7) Urine Collection Type Unknown Urine Color Yellow Urine Clarity Clear Urine pH 6.0 Urine Specific [place] 1.015 Urine Protein >=300 mg/dL (NEG-TRACE) Urine Glucose (UA) Negative mg/dL (NEG) Urine Ketones (Stick) Negative mg/dL (NEG) Urine Blood Small (NEG) Urine Nitrite Negative (NEG) Urine Bilirubin Negative (NEG) Urine Urobilinogen Dipstick 0.2 mg/dL (0.2 mg/dL) Urine Leukocyte Esterase Negative (NEG) Urine RBC 1-2 /HPF (0-2) Urine WBC 1-4 /HPF (0-4) Urine Squamous Epithelial Cells Few /LPF Urine Bacteria Few /HPF (0-FEW) Urine Mucus Slight /LPF Urine Random Creatinine 124.6 mg/dL (Not Establ.) Urine Random Total Protein 351.4 mg/dL (Not Establ.) Urine Opiates Screen Neg (NEG) Urine Methadone Screen Neg (NEG) Urine Barbiturates Neg (NEG) Urine Phencyclidine Screen Neg (NEG) Urine Amphetamine/Methamphetamine Neg (NEG) Urine Benzodiazepines Screen Neg (NEG) Urine Cocaine Screen Neg (NEG) Urine Cannabinoids Screen Pos (NEG) Urine Ethyl Alcohol Neg (NEG) Absolute Reticulocyte Count 0.191 x10^6/uL (0.020-0.120) Percent Reticulocyte Count 4.9 % (0.5-2.3) Immature Reticulocyte Fraction 0.59 (0.20-0.60) Haptoglobin 119 mg/dL (34-200) Magnesium Level 1.9 mg/dL (1.8-2.4) Iron Level 30 ug/dL (65-175) Total Iron Binding Capacity 365 ug/dL (250-450) Iron Saturation 8 % (15-34) Lactate Dehydrogenase 325 U/L (85-227) Procalcitonin < 0.10 ng/mL (0.00-0.10) Thyroid Stimulating Hormone (TSH) 3.738 uIU/mL (0.358-3.74) Prothrombin Time 14.4 SEC (11.7-14.0) Prothromb Time International Ratio 1.2 (0.8-1.1) Activated Partial Thromboplast Time 32 SEC (24-38) Phosphorus Level 5.6 mg/dL (2.6-4.7) Creatine Kinase 240 U/L (39-308) Triglycerides Level 99 mg/dL (0-150) Cholesterol Level 173 mg/dL (0-200) LDL Cholesterol, Calculated 117 mg/dL (0-100) VLDL Cholesterol, Calculated 20 mg/dL (0-40) Non-HDL Cholesterol Calculated 137 mg/dL (0-129) HDL Cholesterol 36 mg/dL (40-60) Cholesterol/HDL Ratio 4.8 Test 04/12/19 11:50 Troponin I Quantitative 0.195 ng/mL (0.000-0.055) Images Images CXRAY NEG Assessment/Plan Assessment/Plan IMP HTN EMERGENCY RENAL FAILURE-MOST LIKELY CKD FATIGUE DUE TO HTN EMERGENCY ANEMIA-PROBABLY CHRONIC IRON DEFICIENCY HYPOKALEMIA LEUKOCYTOSIS DIP STICK POS PROTEINURIA AND HEMATURIA PLAN CARDENE GTT ORAL HTN MEDS REPLACE K IV IRON MAY NEED JAMIE 24 HR URINE STUDY RENAL SONO AND DUPLEX STUDY MAY NEED RENAL BX FOR TISSUE DX IF BP REMAINS UNCONTROLLED WILL CHECK RANULFO/RENIN RATIO WILL FOLLOW CLOLEEN DUQUE MD Apr 12, 2019 15:33
[2019-04-12] MEDS ORDERED: IRON SUCROSE COMPLEX 200 MG in IV NORMAL SALINE 100ML 100 ML IV ONE (16:00)
[2019-04-12] MEDS: LABETALOL 20 MG/4 ML DISP.SYRIN. IVP PRN ×2 (17:53→23:07)
[2019-04-12 23:11] LABS: HEMOGLOBIN A1C 5.1 % (4.8-5.6)
[2019-04-13 03:06] VITALS: BP 189/108
[2019-04-13 05:17] LABS: BASO # 0.1 x10^3/uL (0.0-0.2); BASO % 1 % (0-3); EOS # 0.2 x10^3/uL (0.0-0.7); EOS % 2 % (0-3); HEMATOCRIT 26.2 % (39.0-53.0); HEMOGLOBIN 8.5 g/dL (13.0-17.5); LYMPH % 14 % (24-48); MEAN CORPUSCULAR HEMOGLOBIN 25 pg (25-35); MEAN CORPUSCULAR HGB CONC 33 g/dL (31-37); MEAN CORPUSCULAR VOLUME 76 fL (79-100); MONO # 0.9 x10^3/uL (0.0-1.1); MONO % 6 % (0-9); NEUT # 11.1 x10^3/uL (1.8-7.7); NEUT % 78 % (31-73); PLATELET COUNT 263 x10^3/uL (140-400); RED BLOOD COUNT 3.47 x10^6/uL (4.30-5.70); RED CELL DISTRIBUTION WIDTH 16.4 % (11.5-14.5); WHITE BLOOD COUNT 14.4 x10^3/uL (4.0-11.0)
[2019-04-13] MEDS: LABETALOL 20 MG/4 ML DISP.SYRIN. IVP PRN ×3 (06:00→17:12)
[2019-04-13] MEDS: HEPARIN for SUB-Q USE 5,000 UNIT/ML VIAL. SQ SCH ×3 (06:03→20:58)
[2019-04-13 06:08] LABS: CALCIUM 8.6 mg/dL (8.5-10.1); CREATININE 3.3 mg/dL (0.7-1.3); GFR 21.1; POTASSIUM 3.7 mmol/L (3.5-5.1)
[2019-04-13 06:12] LABS: CALCIUM 8.6 mg/dL (8.5-10.1); CREATININE 3.3 mg/dL (0.7-1.3); GFR 21.1; PHOSPHORUS 5.8 mg/dL (2.6-4.7)
[2019-04-13 06:55] VITALS: BP 161/79
[2019-04-13] MEDS: ISOSORBIDE MONONITRATE ER 30 MG TAB.ER.24H PO SCH (08:09)
[2019-04-13] MEDS: amLODIPine BESYLATE 5 MG TABLET PO SCH (08:09)
[2019-04-13] MEDS: CARVEDILOL 6.25 MG TABLET. PO SCH (08:10)
[2019-04-13] MEDS ORDERED: amLODIPine BESYLATE 5 MG TABLET PO ONE (10:30)
[2019-04-13 10:36] VITALS: BP 150/79
--- NOTE | 2019-04-13 11:35 | PDOC ---
Renal-Progress Notes Subjective Notes Notes FEELING BETTER History of Present Illness Hx of present illness STABLE Vitals Vitals Vital Signs Date Time Temp Pulse Resp B/P (MAP) Pulse Ox O2 Delivery O2 Flow Rate FiO2 04/13/19 10:36 98.0 82 20 150/79 (102) 94 Room Air 98.0 04/13/19 08:00 2.0 Weight Weight [ ] I.O. Intake and Output Intake and Output 04/13/19 06:59 Intake Total 2540 ml Output Total 2200 ml Balance 340 ml Intake Oral 2540 ml Output Urine Total 2200 ml Labs Labs Laboratory Tests Test 04/12/19 11:50 04/13/19 04:45 Troponin I Quantitative 0.195 ng/mL (0.000-0.055) White Blood Count 14.4 x10^3/uL (4.0-11.0) Red Blood Count 3.47 x10^6/uL (4.30-5.70) Hemoglobin 8.5 g/dL (13.0-17.5) Hematocrit 26.2 % (39.0-53.0) Mean Corpuscular Volume 76 fL (79-100) Mean Corpuscular Hemoglobin 25 pg (25-35) Mean Corpuscular Hemoglobin Concent 33 g/dL (31-37) Red Cell Distribution Width 16.4 % (11.5-14.5) Platelet Count 263 x10^3/uL (140-400) Neutrophils (%) (Auto) 78 % (31-73) Lymphocytes (%) (Auto) 14 % (24-48) Monocytes (%) (Auto) 6 % (0-9) Eosinophils (%) (Auto) 2 % (0-3) Basophils (%) (Auto) 1 % (0-3) Neutrophils # (Auto) 11.1 x10^3/uL (1.8-7.7) Lymphocytes # (Auto) 2.0 x10^3/uL (1.0-4.8) Monocytes # (Auto) 0.9 x10^3/uL (0.0-1.1) Eosinophils # (Auto) 0.2 x10^3/uL (0.0-0.7) Basophils # (Auto) 0.1 x10^3/uL (0.0-0.2) Sodium Level 133 mmol/L (136-145) Potassium Level 3.7 mmol/L (3.5-5.1) Chloride Level 97 mmol/L (98-107) Carbon Dioxide Level 30 mmol/L (21-32) Anion Gap 6 (6-14) Blood Urea Nitrogen 39 mg/dL (8-26) Creatinine 3.3 mg/dL (0.7-1.3) Estimated GFR (Cockcroft-Gault) 21.1 Glucose Level 91 mg/dL (70-99) Calcium Level 8.6 mg/dL (8.5-10.1) Phosphorus Level 5.8 mg/dL (2.6-4.7) Albumin 3.0 g/dL (3.4-5.0) Micro Micro Microbiology 04/11/19 Blood Culture - Preliminary, Resulted NO GROWTH AFTER 1 DAY Review of Systems Constitutional: yes: alert, oriented Ears/Nose/Throat: Yes: no symptom reported Eyes: Yes: no symptom reported Pulmonary: Yes dyspnea Cardiovascular: Yes no symptom reported Gastrointestional: Yes: no symptom reported Genitourinary: Yes: no symptom reported Musculoskeletal: Yes: no symptom reported Skin: Yes no symptom reported Psychiatric/Neurological: Yes: no symptom reported Physical Exam General Appearance: no apparent distress Skin: warm Respiratory: decreased breath sounds Heart: S1S2 Abdomen: soft, bowel sounds present Genitourinary: bladder flat Extremities: pulses present Neurology: alert, oriented Assessment Assessment IMP HTN EMERGENCY-BETTER RENAL FAILURE-MOST LIKELY CKD FATIGUE DUE TO HTN EMERGENCY ANEMIA-PROBABLY CHRONIC IRON DEFICIENCY HYPOKALEMIA-BETTER LEUKOCYTOSIS DIP STICK POS PROTEINURIA AND HEMATURIA PLAN CARDENE GTT ORAL HTN MEDS AGREE WITH INCREASING NORVASC REPLACE K NEEDED IV IRON DONE MAY NEED JAMIE 24 HR URINE STUDY RESULTS PENDING RENAL SONO AND DUPLEX STUDY WNL MAY NEED RENAL BX FOR TISSUE DX IF BP REMAINS UNCONTROLLED WILL CHECK RANULFO/RENIN RATIO WILL FOLLOW COLLEEN DUQUE MD Apr 13, 2019 11:35
--- NOTE | 2019-04-13 11:50 | PDOC ---
CARDIOLOGY PROGRESS NOTE SUBJECTIVE: No acute events overnight. Denies any chest pain or dyspnea. He feels better. OBJECTIVE: Vital Signs/I&O: Vital Signs Date Time Temp Pulse Resp B/P (MAP) Pulse Ox O2 Delivery O2 Flow Rate FiO2 04/13/19 10:36 98.0 82 20 150/79 (102) 94 Room Air 98.0 04/13/19 08:00 2.0 I & O 04/12/19 04/12/19 04/13/19 15:00 23:00 07:00 Intake Total 240 ml 2300 ml Output Total 500 ml 1700 ml Balance 240 ml 1800 ml -1700 ml Objective: In general he is alert and oriented Head and neck exam is unremarkable Cardiac regular rate and rhythm Lungs are clear Trace lower extremity edema CURRENT MEDICATIONS: Cardiac medications include carvedilol, hydralazine, amlodipine and Imdur DIAGNOSTIC TESTING: Await echocardiogram Labs: Labs reviewed and anemia persists along with likely chronic kidney disease ASSESSMENT: 1. Hypertensive emergency 2. Chronic kidney disease PLAN: 1. Continue oral medication titration and further evaluation by nephrology service. We will await his echocardiogram and if he has normal ejection fraction continue current medical therapy otherwise if there is any significant cardio my opathy we will plan for outpatient stress testing. TORREY LEVIN MD Apr 13, 2019 11:50
--- NOTE | 2019-04-13 13:06 | PDOC ---
PROGRESS NOTES Chief Complaint Chief Complaint A/P: Hypertensive Emergency - with TERI. Will cont labetalol prn, off nicardipine GTT as he was not responsive to labetalol and NTG initially and his diastolic BP was life-threateningly high. Seen by cardiology, started appropriately on imdur, hydralazine and will try coreg TERI - no known h/o renal dysfunction. It is unclear if this is simply vasomotor nephropathy vs ATN. Has not been taking NSAIDs. Very concerning he is anemic as well. Negative renal imaging and consulted nephrology. 24 urine pending Elevated troponin - this could be demand ischemia or 2/2 TERI. Negative for PA Anemia, microcytic - will replace iron. LDH, haptoglobin, TSH, B12, and reticulocyte count consistent with some mild LACI and poor retic. Given his renal dysfunction this is concerning given his young age and no prior medical disease. Leukocytosis - uncertain etiology. Could be reactive with his BP elevation and neutrophil predominance. No sick contacts or illness. Will obtain blood cultures, trend his CBC. Hypokalemia - will slowly replace oral, cautiously given his renal dysfunction. Check mag Hypoalbuminemia - will treat as mild protein calorie malnutrition. Has been dieting recently. Lethargy - multifactorial given all the above, check TSH as well LE edema - likely related to TERI, hypertensive emergency. Given lasix already. will monitor. FEN - Cardiac diet PPX - ambulatory, age places at lower risk, will give SC heparin, however FULL CODE Dispo - CCU/CVC for hypertensive emergency. History of Present Illness History of Present Illness Mr Gonzalez is a 39yo M w/ PMHx asthma, morbid obesity who presents to ED directly from Dr Mitchell today because of BP 254/136. Patient has noted increased bilateral leg edema and shortness of breath for the last week. He has been c/o lethargy for weeks. He has recently been on a "health kick" and has intentionally lost 25# by joining the [employer] for exercise 3-5 days per week as of 2 months ago and he and his have made healthier dietary choices. Due to worsening dyspnea on exertion and early fatigue he thought that his asthma may have been acting up so he started using his albuterol inhaler and it did not seem to be working and has run out. Patient denies any illness or coughing, fever, abdominal pain, nausea, vomiting, headache, chest pain, dizziness, numbness or tingling, syncope, visual changes. Patient denies any pain at this time. Patient states at this time he is feeling normal but if he is up and moving is when he feels shortness of breath. He established primary care today for his lethargy and above BP was noted and he was sent immediately to the ED. He has not been told his BP has been elevated previously. In ED he was noted with a number of abnormalities with BP 264/154 minimally changed with labetalol. CXR revealed cardiomegaly. EKG NSR with non- specific lucretia-lateral ST depressions. 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 He lives with his and 2 children (8 and 5), is non-smoker, and has recently stopped drinking alcohol 2 months ago. Father and paternal grandfather with h/o HTN, does not know his mother's lineage or health history. 04/12: Overnight BP improved a bit on cardene GTT, but still not weaned off. His Cr is stable. Troponin came down. He feels symptomatically improved. Of note, he recalls he was on HCTZ a few years ago, but after a f/u appt with normal BP he was instructed to stop. Feeling improved. Still with elevated BP, but off cardene GTT. Renal function not improved. WBC down. Iron infusing. D/w him and bedside given normal a ppearing kidneys on ultrasound that pending his 24 hour urine protein results he may need renal biopsy tomorrow. Vitals Vitals Vital Signs Date Time Temp Pulse Resp B/P (MAP) Pulse Ox O2 Delivery O2 Flow Rate FiO2 04/13/19 12:03 82 150/79 04/13/19 10:36 98.0 20 94 Room Air 98.0 04/13/19 08:00 2.0 Physical Exam General: Alert, Oriented X3, Cooperative, No acute distress Heart: Regular rate Abdomen: Normal bowel sounds, Soft Extremities: No clubbing, No cyanosis Skin: No breakdown Labs LABS Laboratory Tests Test 04/13/19 04:45 White Blood Count 14.4 x10^3/uL (4.0-11.0) Red Blood Count 3.47 x10^6/uL (4.30-5.70) Hemoglobin 8.5 g/dL (13.0-17.5) Hematocrit 26.2 % (39.0-53.0) Mean Corpuscular Volume 76 fL (79-100) Mean Corpuscular Hemoglobin 25 pg (25-35) Mean Corpuscular Hemoglobin Concent 33 g/dL (31-37) Red Cell Distribution Width 16.4 % (11.5-14.5) Platelet Count 263 x10^3/uL (140-400) Neutrophils (%) (Auto) 78 % (31-73) Lymphocytes (%) (Auto) 14 % (24-48) Monocytes (%) (Auto) 6 % (0-9) Eosinophils (%) (Auto) 2 % (0-3) Basophils (%) (Auto) 1 % (0-3) Neutrophils # (Auto) 11.1 x10^3/uL (1.8-7.7) Lymphocytes # (Auto) 2.0 x10^3/uL (1.0-4.8) Monocytes # (Auto) 0.9 x10^3/uL (0.0-1.1) Eosinophils # (Auto) 0.2 x10^3/uL (0.0-0.7) Basophils # (Auto) 0.1 x10^3/uL (0.0-0.2) Sodium Level 133 mmol/L (136-145) Potassium Level 3.7 mmol/L (3.5-5.1) Chloride Level 97 mmol/L (98-107) Carbon Dioxide Level 30 mmol/L (21-32) Anion Gap 6 (6-14) Blood Urea Nitrogen 39 mg/dL (8-26) Creatinine 3.3 mg/dL (0.7-1.3) Estimated GFR (Cockcroft-Gault) 21.1 Glucose Level 91 mg/dL (70-99) Calcium Level 8.6 mg/dL (8.5-10.1) Phosphorus Level 5.8 mg/dL (2.6-4.7) Albumin 3.0 g/dL (3.4-5.0) Assessment and Plan Assessmemt and Plan Problems Medical Problems: (1) TERI (acute kidney injury) Status: Acute (2) Elevated troponin Status: Acute (3) HTN (hypertension) Status: Acute Comment Review of Relevant I have reviewed the following items agustin (where applicable) has been applied. Labs Laboratory Tests Test 04/11/19 16:12 04/11/19 16:28 04/11/19 22:22 04/12/19 03:30 White Blood Count 14.2 x10^3/uL (4.0-11.0) 16.2 x10^3/uL (4.0-11.0) Red Blood Count 3.77 x10^6/uL (4.30-5.70) 3.91 x10^6/uL (4.30-5.70) 3.89 x10^6/uL (4.30-5.70) Hemoglobin 9.4 g/dL (13.0-17.5) 9.5 g/dL (13.0-17.5) Hematocrit 28.5 % (39.0-53.0) 29.3 % (39.0-53.0) Mean Corpuscular Volume 76 fL (79-100) 75 fL (79-100) Mean Corpuscular Hemoglobin 25 pg (25-35) 24 pg (25-35) Mean Corpuscular Hemoglobin Concent 33 g/dL (31-37) 33 g/dL (31-37) Red Cell Distribution Width 16.4 % (11.5-14.5) 16.4 % (11.5-14.5) Platelet Count 271 x10^3/uL (140-400) 277 x10^3/uL (140-400) Neutrophils (%) (Auto) 79 % (31-73) 82 % (31-73) Lymphocytes (%) (Auto) 14 % (24-48) 12 % (24-48) Monocytes (%) (Auto) 5 % (0-9) 5 % (0-9) Eosinophils (%) (Auto) 1 % (0-3) 1 % (0-3) Basophils (%) (Auto) 1 % (0-3) 1 % (0-3) Neutrophils # (Auto) 11.2 x10^3/uL (1.8-7.7) 13.3 x10^3/uL (1.8-7.7) Lymphocytes # (Auto) 2.0 x10^3/uL (1.0-4.8) 1.9 x10^3/uL (1.0-4.8) Monocytes # (Auto) 0.7 x10^3/uL (0.0-1.1) 0.8 x10^3/uL (0.0-1.1) Eosinophils # (Auto) 0.2 x10^3/uL (0.0-0.7) 0.1 x10^3/uL (0.0-0.7) Basophils # (Auto) 0.2 x10^3/uL (0.0-0.2) 0.1 x10^3/uL (0.0-0.2) Sodium Level 135 mmol/L (136-145) 137 mmol/L (136-145) Potassium Level 3.3 mmol/L (3.5-5.1) 3.6 mmol/L (3.5-5.1) Chloride Level 97 mmol/L (98-107) 97 mmol/L (98-107) Carbon Dioxide Level 29 mmol/L (21-32) 31 mmol/L (21-32) Anion Gap 9 (6-14) 9 (6-14) Blood Urea Nitrogen 37 mg/dL (8-26) 36 mg/dL (8-26) Creatinine 3.1 mg/dL (0.7-1.3) 3.1 mg/dL (0.7-1.3) Estimated GFR (Cockcroft-Gault) 22.7 22.7 BUN/Creatinine Ratio 12 (6-20) Glucose Level 104 mg/dL (70-99) 123 mg/dL (70-99) Calcium Level 9.0 mg/dL (8.5-10.1) 9.2 mg/dL (8.5-10.1) Total Bilirubin 0.8 mg/dL (0.2-1.0) Aspartate Amino Transf (AST/SGOT) 24 U/L (15-37) Alanine Aminotransferase (ALT/SGPT) 17 U/L (16-63) Alkaline Phosphatase 97 U/L (46-116) Troponin I Quantitative 0.116 ng/mL (0.000-0.055) 0.114 ng/mL (0.000-0.055) 0.093 ng/mL (0.000-0.055) QS-Ipc-D-Type Natriuretic Peptide 8397 pg/mL (0-124) Total Protein 6.9 g/dL (6.4-8.2) Albumin 3.2 g/dL (3.4-5.0) 3.4 g/dL (3.4-5.0) Albumin/Globulin Ratio 0.9 (1.0-1.7) Urine Collection Type Unknown Urine Color Yellow Urine Clarity Clear Urine pH 6.0 Urine Specific [place] 1.015 Urine Protein >=300 mg/dL (NEG-TRACE) Urine Glucose (UA) Negative mg/dL (NEG) Urine Ketones (Stick) Negative mg/dL (NEG) Urine Blood Small (NEG) Urine Nitrite Negative (NEG) Urine Bilirubin Negative (NEG) Urine Urobilinogen Dipstick 0.2 mg/dL (0.2 mg/dL) Urine Leukocyte Esterase Negative (NEG) Urine RBC 1-2 /HPF (0-2) Urine WBC 1-4 /HPF (0-4) Urine Squamous Epithelial Cells Few /LPF Urine Bacteria Few /HPF (0-FEW) Urine Mucus Slight /LPF Urine Random Creatinine 124.6 mg/dL (Not Establ.) Urine Random Total Protein 351.4 mg/dL (Not Establ.) Urine Random Sodium 21 mmol/L (Not Estab.) Urine Opiates Screen Neg (NEG) Urine Methadone Screen Neg (NEG) Urine Barbiturates Neg (NEG) Urine Phencyclidine Screen Neg (NEG) Urine Amphetamine/Methamphetamine Neg (NEG) Urine Benzodiazepines Screen Neg (NEG) Urine Cocaine Screen Neg (NEG) Urine Cannabinoids Screen Pos (NEG) Urine Ethyl Alcohol Neg (NEG) Absolute Reticulocyte Count 0.191 x10^6/uL (0.020-0.120) Percent Reticulocyte Count 4.9 % (0.5-2.3) Immature Reticulocyte Fraction 0.59 (0.20-0.60) Haptoglobin 119 mg/dL (34-200) Hemoglobin A1c 5.1 % (4.8-5.6) Magnesium Level 1.9 mg/dL (1.8-2.4) Iron Level 30 ug/dL (65-175) Total Iron Binding Capacity 365 ug/dL (250-450) Iron Saturation 8 % (15-34) Lactate Dehydrogenase 325 U/L (85-227) Procalcitonin < 0.10 ng/mL (0.00-0.10) Thyroid Stimulating Hormone (TSH) 3.738 uIU/mL (0.358-3.74) Prothrombin Time 14.4 SEC (11.7-14.0) Prothromb Time International Ratio 1.2 (0.8-1.1) Activated Partial Thromboplast Time 32 SEC (24-38) Phosphorus Level 5.6 mg/dL (2.6-4.7) Creatine Kinase 240 U/L (39-308) Triglycerides Level 99 mg/dL (0-150) Cholesterol Level 173 mg/dL (0-200) LDL Cholesterol, Calculated 117 mg/dL (0-100) VLDL Cholesterol, Calculated 20 mg/dL (0-40) Non-HDL Cholesterol Calculated 137 mg/dL (0-129) HDL Cholesterol 36 mg/dL (40-60) Cholesterol/HDL Ratio 4.8 Test 04/12/19 11:50 04/13/19 04:45 Troponin I Quantitative 0.195 ng/mL (0.000-0.055) White Blood Count 14.4 x10^3/uL (4.0-11.0) Red Blood Count 3.47 x10^6/uL (4.30-5.70) Hemoglobin 8.5 g/dL (13.0-17.5) Hematocrit 26.2 % (39.0-53.0) Mean Corpuscular Volume 76 fL (79-100) Mean Corpuscular Hemoglobin 25 pg (25-35) Mean Corpuscular Hemoglobin Concent 33 g/dL (31-37) Red Cell Distribution Width 16.4 % (11.5-14.5) Platelet Count 263 x10^3/uL (140-400) Neutrophils (%) (Auto) 78 % (31-73) Lymphocytes (%) (Auto) 14 % (24-48) Monocytes (%) (Auto) 6 % (0-9) Eosinophils (%) (Auto) 2 % (0-3) Basophils (%) (Auto) 1 % (0-3) Neutrophils # (Auto) 11.1 x10^3/uL (1.8-7.7) Lymphocytes # (Auto) 2.0 x10^3/uL (1.0-4.8) Monocytes # (Auto) 0.9 x10^3/uL (0.0-1.1) Eosinophils # (Auto) 0.2 x10^3/uL (0.0-0.7) Basophils # (Auto) 0.1 x10^3/uL (0.0-0.2) Sodium Level 133 mmol/L (136-145) Potassium Level 3.7 mmol/L (3.5-5.1) Chloride Level 97 mmol/L (98-107) Carbon Dioxide Level 30 mmol/L (21-32) Anion Gap 6 (6-14) Blood Urea Nitrogen 39 mg/dL (8-26) Creatinine 3.3 mg/dL (0.7-1.3) Estimated GFR (Cockcroft-Gault) 21.1 Glucose Level 91 mg/dL (70-99) Calcium Level 8.6 mg/dL (8.5-10.1) Phosphorus Level 5.8 mg/dL (2.6-4.7) Albumin 3.0 g/dL (3.4-5.0) Laboratory Tests Test 04/13/19 04:45 White Blood Count 14.4 x10^3/uL (4.0-11.0) Red Blood Count 3.47 x10^6/uL (4.30-5.70) Hemoglobin 8.5 g/dL (13.0-17.5) Hematocrit 26.2 % (39.0-53.0) Mean Corpuscular Volume 76 fL (79-100) Mean Corpuscular Hemoglobin 25 pg (25-35) Mean Corpuscular Hemoglobin Concent 33 g/dL (31-37) Red Cell Distribution Width 16.4 % (11.5-14.5) Platelet Count 263 x10^3/uL (140-400) Neutrophils (%) (Auto) 78 % (31-73) Lymphocytes (%) (Auto) 14 % (24-48) Monocytes (%) (Auto) 6 % (0-9) Eosinophils (%) (Auto) 2 % (0-3) Basophils (%) (Auto) 1 % (0-3) Neutrophils # (Auto) 11.1 x10^3/uL (1.8-7.7) Lymphocytes # (Auto) 2.0 x10^3/uL (1.0-4.8) Monocytes # (Auto) 0.9 x10^3/uL (0.0-1.1) Eosinophils # (Auto) 0.2 x10^3/uL (0.0-0.7) Basophils # (Auto) 0.1 x10^3/uL (0.0-0.2) Sodium Level 133 mmol/L (136-145) Potassium Level 3.7 mmol/L (3.5-5.1) Chloride Level 97 mmol/L (98-107) Carbon Dioxide Level 30 mmol/L (21-32) Anion Gap 6 (6-14) Blood Urea Nitrogen 39 mg/dL (8-26) Creatinine 3.3 mg/dL (0.7-1.3) Estimated GFR (Cockcroft-Gault) 21.1 Glucose Level 91 mg/dL (70-99) Calcium Level 8.6 mg/dL (8.5-10.1) Phosphorus Level 5.8 mg/dL (2.6-4.7) Albumin 3.0 g/dL (3.4-5.0) Microbiology 04/11/19 Blood Culture - Preliminary, Resulted NO GROWTH AFTER 1 DAY Medications Current Medications Labetalol HCl (Normodyne Iv Push) 10 mg 1X ONCE IVP Last administered on 04/11/19at 16:32; Start 04/11/19 at 16:00; Stop 04/11/19 at 16:01; Status DC Aspirin (Julian Aspirin) 325 mg 1X ONCE PO Last administered on 04/11/19at 16:31; Start 04/11/19 at 16:00; Stop 04/11/19 at 16:01; Status DC Furosemide (Lasix) 60 mg 1X ONCE IVP Last administered on 04/11/19at 18:05; Start 04/11/19 at 17:45; Stop 04/11/19 at 17:46; Status DC Potassium Chloride (Klor-Con) 20 meq 1X ONCE PO Last administered on 04/11/19at 18:04; Start 04/11/19 at 17:45; Stop 04/11/19 at 17:46; Status DC Ondansetron HCl (Zofran) 4 mg 1X ONCE IV Last administered on 04/11/19at 18:05; Start 04/11/19 at 17:45; Stop 04/11/19 at 17:46; Status DC Ondansetron HCl (Zofran) 4 mg PRN Q8HRS PRN IV NAUSEA/VOMITING; Start 04/11/19 at 17:45; Stop 04/11/19 at 20:23; Status DC Acetaminophen (Tylenol) 650 mg PRN Q4HRS PRN PO FEVER; Start 04/11/19 at 17:45; Stop 04/12/19 at 17:44; Status DC Nitroglycerin (Nitro-Bid Oint) 1 inch 1X ONCE TP Last administered on 04/11/19at 18:49; Start 04/11/19 at 18:45; Stop 04/11/19 at 18:46; Status DC Ondansetron HCl (Zofran) 4 mg PRN Q6HRS PRN IV NAUSEA/VOMITING; Start 04/11/19 at 20:30 Labetalol HCl (Normodyne Iv Push) 20 mg PRN Q2HR PRN IVP HYPERTENSION Last administered on 04/13/19at 06:00; Start 04/11/19 at 20:30 Amlodipine Besylate (Norvasc) 5 mg DAILY PO Last administered on 04/13/19at 08:09; Start 04/11/19 at 20:30; Stop 04/13/19 at 10:07; Status DC Nicardipine HCl 50 mg/Sodium Chloride 250 ml @ 25 mls/hr CONT PRN IV SEE I/O RECORD Last administered on 04/12/19at 14:22; Start 04/11/19 at 20:45 Nitroglycerin (Nitro-Bid Oint) 1 inch Q6HRS TP Last administered on 04/12/19at 06:25; Start 04/11/19 at 20:45; Stop 04/12/19 at 09:44; Status DC Potassium Chloride (Klor-Con) 20 meq 1X ONCE PO Last administered on 04/11/19at 21:20; Start 04/11/19 at 21:15; Stop 04/11/19 at 21:16; Status DC Heparin Sodium (Porcine) (Heparin Sodium) 5,000 unit Q8HRS SQ Last administered on 04/13/19at 06:03; Start 04/11/19 at 22:00 Influenza Virus Vaccine Quadrival (Afluria Quad 2019-20 (3yr Up) Syringe) 0.5 ml ONCE ONCE VAX IM Last administered on 04/12/19at 09:03; Start 04/12/19 at 09:00; Stop 04/12/19 at 09:01; Status DC Hydralazine HCl (Apresoline) 50 mg BID PO Last administered on 04/13/19at 08:09; Start 04/12/19 at 10:00; Stop 04/13/19 at 10:07; Status DC Isosorbide Mononitrate (Imdur) 30 mg DAILY PO Last administered on 04/13/19at 08:09; Start 04/12/19 at 10:00 Carvedilol (Coreg) 6.25 mg BIDWMEALS PO Last administered on 04/13/19at 08:10; Start 04/12/19 at 10:00 Iron Sucrose 200 mg/Sodium Chloride 110 ml @ 55 mls/hr 1X ONCE IV Last administered on 04/12/19at 17:53; Start 04/12/19 at 16:00; Stop 04/12/19 at 17:59; Status DC Amlodipine Besylate (Norvasc) 10 mg DAILY PO ; Start 04/14/19 at 09:00 Hydralazine HCl (Apresoline) 100 mg BID PO ; Start 04/13/19 at 21:00 Amlodipine Besylate (Norvasc) 5 mg 1X ONCE PO Last administered on 04/13/19at 10:26; Start 04/13/19 at 10:30; Stop 04/13/19 at 10:31; Status DC Hydralazine HCl (Apresoline) 50 mg 1X ONCE PO Last administered on 04/13/19at 12:03; Start 04/13/19 at 12:00; Stop 04/13/19 at 12:01; Status DC Vitals/I & O Vital Sign - Last 24 Hours 04/12/19 04/12/19 04/12/19 04/12/19 14:09 17:53 17:53 19:55 Temp 98.3 97.6 98.3 97.6 Pulse 84 82 84 92 Resp 18 18 B/P (MAP) 175/67 (103) 150/70 175/67 150/71 (97) Pulse Ox 92 98 O2 Delivery Nasal Cannula Room Air O2 Flow Rate 2.0 1104/12/19 04/12/19 04/12/19 20:00 20:21 22:55 23:07 Temp 97.7 97.7 Pulse 92 85 85 Resp 20 B/P (MAP) 150/71 199/96 (130) 199/96 Pulse Ox 95 O2 Delivery Nasal Cannula Room Air O2 Flow Rate 2.0 04/13/19 04/13/19 04/13/19 04/13/19 03:06 06:00 06:55 08:00 Temp 98.0 97.1 98.0 97.1 Pulse 81 75 Resp 20 20 B/P (MAP) 189/108 (135) 199/101 161/79 (106) Pulse Ox 93 95 O2 Delivery Nasal Cannula Nasal Cannula Room Air O2 Flow Rate 2.0 2.0 2.0 04/13/19 04/13/19 04/13/19 04/13/19 08:09 08:09 08:09 08:10 Pulse 75 75 75 75 B/P (MAP) 161/79 161/79 161/79 161/79 04/13/19 04/13/19 04/13/19 10:26 10:36 12:03 Temp 98.0 98.0 Pulse 75 82 82 Resp 20 B/P (MAP) 161/79 150/79 (102) 150/79 Pulse Ox 94 O2 Delivery Room Air Intake and Output 04/12/19 04/12/19 04/13/19 15:00 23:00 07:00 Intake Total 240 ml 2300 ml Output Total 500 ml 1700 ml Balance 240 ml 1800 ml -1700 ml JEFF ENGLAND MD Apr 13, 2019 13:06
[2019-04-13 14:11] VITALS: BP_SYST 175; BP_SYST 75; BP_DIAS 79
[2019-04-13] MEDS: CARVEDILOL 12.5 MG TABLET. PO SCH (17:11)
[2019-04-13 17:27] LABS: BARBITURATES NEG (NEG); BENZODIAZEPINES NEG (NEG); CANNABINOIDS POS (NEG); COCAINE NEG (NEG); METHADONE NEG (NEG); OPIATES NEG (NEG); PHENCYCLIDINE NEG (NEG)
[2019-04-13 17:31] LABS: AMPHETAMINE/METHAMPHETAMINE NEG (NEG)
[2019-04-13 18:22] VITALS: BP 156/64
[2019-04-13] MEDS ORDERED: ISOSORBIDE MONONITRATE ER 30 MG TAB.ER.24H PO ONE (21:00)
[2019-04-13 22:35] VITALS: BP 147/64
[2019-04-13 23:08] LABS: UR PROTEIN 77.9 mg/dL (Not Estab.)
[2019-04-14] VITALS (7 sets, daily range): BP systolic 144–192; BP diastolic 68–97
[2019-04-14 02:07] LABS: TOTAL SERUM CREATININE 3.18 mg/dL (0.76-1.27)
[2019-04-14] MEDS: LABETALOL 20 MG/4 ML DISP.SYRIN. IVP PRN (05:33)
[2019-04-14] MEDS: HEPARIN for SUB-Q USE 5,000 UNIT/ML VIAL. SQ SCH ×3 (05:38→22:17)
--- NOTE | 2019-04-14 06:10 | EKG ---
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
[2019-04-14 06:55] LABS: BASO # 0.1 x10^3/uL (0.0-0.2); BASO % 1 % (0-3); EOS # 0.2 x10^3/uL (0.0-0.7); EOS % 2 % (0-3); HEMATOCRIT 25.3 % (39.0-53.0); LYMPH # 1.3 x10^3/uL (1.0-4.8); LYMPH % 11 % (24-48); MEAN CORPUSCULAR HEMOGLOBIN 24 pg (25-35); MEAN CORPUSCULAR HGB CONC 32 g/dL (31-37); MEAN CORPUSCULAR VOLUME 76 fL (79-100); MONO # 0.8 x10^3/uL (0.0-1.1); MONO % 7 % (0-9); NEUT # 9.7 x10^3/uL (1.8-7.7); NEUT % 80 % (31-73); PLATELET COUNT 248 x10^3/uL (140-400); RED BLOOD COUNT 3.31 x10^6/uL (4.30-5.70); RED CELL DISTRIBUTION WIDTH 16.7 % (11.5-14.5); WHITE BLOOD COUNT 12.1 x10^3/uL (4.0-11.0)
[2019-04-14 07:14] LABS: ALBUMIN 2.8 g/dL (3.4-5.0); CALCIUM 8.8 mg/dL (8.5-10.1); GFR 23.5; PHOSPHORUS 4.6 mg/dL (2.6-4.7); POTASSIUM 3.8 mmol/L (3.5-5.1)
[2019-04-14] MEDS: amLODIPine BESYLATE 10 MG TABLET PO SCH (08:26)
[2019-04-14] MEDS: ISOSORBIDE MONONITRATE ER 30 MG TAB.ER.24H PO SCH (08:26)
[2019-04-14] MEDS: CARVEDILOL 12.5 MG TABLET. PO SCH ×2 (08:27→17:14)
--- NOTE | 2019-04-14 09:31 | EKG ---
[facility] [address] [place] [address] Test Date: 2019-04-11 Test Time: 19:06:57 Pat Name: JOE LIZAMA Department: Room: 200 1 Gender: M [employer]: : 1980 Requested By: JEFF ENGLAND Order Number: [id number] Reading MD: Measurements Intervals [place] Rate: 105 P: 18 [place]: 170 QRS: -45 QRSD: 98 T: 2 QT: 358 QTc: 477 Interpretive Statements SINUS TACHYCARDIA ABNORMAL LEFT AXIS DEVIATION LEFT ANTERIOR FASCICULAR BLOCK ABNORMAL ECG RI6.01 No previous ECG available for comparison 1906
--- NOTE | 2019-04-14 09:51 | PDOC ---
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 04/14/19 0951: CARDIO Progress Notes Date and Time Date of Service 04/14/2019 Time of Evaluation 0930 Vitals Vitals Vital Signs Date Time Temp Pulse Resp B/P (MAP) Pulse Ox O2 Delivery O2 Flow Rate FiO2 04/14/19 08:27 83 179/78 04/14/19 08:00 Room Air 2.0 04/14/19 07:00 97.7 20 97.7 04/13/19 22:35 99 Weight Weight [ ] Input and Output Intake and Output Intake and Output0 04/14/19 07:00 Intake Total 2620 ml Output Total 1925 ml Balance 695 ml Intake Oral 2620 ml Output Urine Total 1925 ml Laboratory Labs Laboratory Tests Test 04/13/19 12:00 04/13/19 17:15 04/14/19 06:00 Urine Protein 77.9 mg/dL (Not Estab.) Urine Creatinine mg/dL 100.0 mg/dL (Not Estab.) Urine Creatinine mg/24 hr 2675 mg/24 hr (8642-8705) Creatinine Clearance 24 Hour 58 mL/min (97-137) Urine Protein 24 Hr Calculated 2084 mg/24 hr (30-150) Creatinine 3.18 mg/dL (0.76-1.27) 3.0 mg/dL (0.7-1.3) Estimated GFR (Non- 23 (>59) EGFR 27 (>59) Urine Opiates Screen Neg (NEG) Urine Methadone Screen Neg (NEG) Urine Barbiturates Neg (NEG) Urine Phencyclidine Screen Neg (NEG) Urine Amphetamine/Methamphetamine Neg (NEG) Urine Benzodiazepines Screen Neg (NEG) Urine Cocaine Screen Neg (NEG) Urine Cannabinoids Screen Pos (NEG) Urine Ethyl Alcohol Neg (NEG) White Blood Count 12.1 x10^3/uL (4.0-11.0) Red Blood Count 3.31 x10^6/uL (4.30-5.70) Hemoglobin 8.0 g/dL (13.0-17.5) Hematocrit 25.3 % (39.0-53.0) Mean Corpuscular Volume 76 fL (79-100) Mean Corpuscular Hemoglobin 24 pg (25-35) Mean Corpuscular Hemoglobin Concent 32 g/dL (31-37) Red Cell Distribution Width 16.7 % (11.5-14.5) Platelet Count 248 x10^3/uL (140-400) Neutrophils (%) (Auto) 80 % (31-73) Lymphocytes (%) (Auto) 11 % (24-48) Monocytes (%) (Auto) 7 % (0-9) Eosinophils (%) (Auto) 2 % (0-3) Basophils (%) (Auto) 1 % (0-3) Neutrophils # (Auto) 9.7 x10^3/uL (1.8-7.7) Lymphocytes # (Auto) 1.3 x10^3/uL (1.0-4.8) Monocytes # (Auto) 0.8 x10^3/uL (0.0-1.1) Eosinophils # (Auto) 0.2 x10^3/uL (0.0-0.7) Basophils # (Auto) 0.1 x10^3/uL (0.0-0.2) Sodium Level 134 mmol/L (136-145) Potassium Level 3.8 mmol/L (3.5-5.1) Chloride Level 96 mmol/L (98-107) Carbon Dioxide Level 31 mmol/L (21-32) Anion Gap 7 (6-14) Blood Urea Nitrogen 34 mg/dL (8-26) Estimated GFR (Cockcroft-Gault) 23.5 Glucose Level 102 mg/dL (70-99) Calcium Level 8.8 mg/dL (8.5-10.1) Phosphorus Level 4.6 mg/dL (2.6-4.7) Albumin 2.8 g/dL (3.4-5.0) Microbiology Micro Microbiology 04/11/19 Blood Culture - Preliminary, Resulted NO GROWTH AFTER 2 DAYS Review of Systems Constitutional: yes: alert, oriented Ears/Nose/Throat: Yes: no symptom reported Eyes: Yes: no symptom reported Pulmonary: Yes dyspnea Cardiovascular: Yes no symptom reported Gastrointestional: Yes: no symptom reported Genitourinary: Yes: no symptom reported Musculoskeletal: Yes: no symptom reported Skin: Yes no symptom reported Psychiatric/Neurological: Yes: no symptom reported Physical Exam Heart: S1S2, RRR, no thrills, no rubs, no gallops, no murmurs Neurology: alert, oriented Assessment Assessment 1. Malignant HTN: labile 2. Acute likely on chronic diastolic CHF 3. TERI possible with preexisting CKD 4. suspecting FABIÁN 5. Mild troponin elevation: peaked at 0.19, possible demand mediated with mu ltiple culprits above. No ectopies, CP free 6. Anemia of chronic disease: with Fe def. and renal disease 7. DLP 8. Morbid obesity 9. Marijuana use Recommendations 1. Follow nephrology input 2. Awaiting TTE for further differentiation of any coexisting cardiac disease and will consider for outpt stress test. 3. Continue current BP regimen, uptitrate per BP trend. Will start on statin. No ACEi/ARB avoid NSAIDs. 4. Marijuana cessation 5. Wt loss. Will need FABIÁN workup. TORREY LEVIN MD 04/14/19 1326: CARDIO Progress Notes Plan Plan Patient seen and examined. Agree with above nurse practitioner note. No acute events overnight. Echocardiogram reveals normal LV function Medications have been adjusted and we will continue titration on outpatient basis. Goal blood pressure prior to discharge would be about 140/90 He will follow-up with us in the office in 6-8 weeks. Continue treatment per nephrology service. HEMA MCMULLEN APRN Apr 14, 2019 09:51 TORREY LEVIN MD Apr 14, 2019 13:26
[2019-04-14] MEDS ORDERED: ISOSORBIDE MONONITRATE ER 30 MG TAB.ER.24H PO ONE (10:00)
--- NOTE | 2019-04-14 10:46 | PDOC ---
PROGRESS NOTES Chief Complaint Chief Complaint A/P: Hypertensive Emergency - with TERI. Will cont labetalol prn, off nicardipine GTT as he was not responsive to labetalol and NTG initially and his diastolic BP was life-threateningly high. Seen by cardiology, started appropriately on imdur, hydralazine and will try coreg TERI - no known h/o renal dysfunction. It is unclear if this is simply vasomotor nephropathy vs ATN. Has not been taking NSAIDs. Very concerning he is anemic as well. Negative renal imaging and consulted nephrology. 24 urine pending Elevated troponin - this could be demand ischemia or 2/2 TERI. Negative for IN Anemia, microcytic - will replace iron. LDH, haptoglobin, TSH, B12, and reticulocyte count consistent with some mild LACI and poor retic. Given his renal dysfunction this is concerning given his young age and no prior medical disease. Leukocytosis - uncertain etiology. Could be reactive with his BP elevation and neutrophil predominance. No sick contacts or illness. Will obtain blood cultures, trend his CBC. Hypokalemia - will slowly replace oral, cautiously given his renal dysfunction. Check mag Hypoalbuminemia - will treat as mild protein calorie malnutrition. Has been dieting recently. Lethargy - multifactorial given all the above, check TSH as well LE edema - likely related to TERI, hypertensive emergency. Given lasix already. will monitor. SIRS with acute end-organ dysfunction - TERI - present on admission - Improved FEN - Cardiac diet PPX - ambulatory, age places at lower risk, will give SC heparin, however FULL CODE Dispo - CCU/CVC for hypertensive emergency. History of Present Illness History of Present Illness Mr Gonzalez is a 39yo M w/ PMHx asthma, morbid obesity who presents to ED directly from Dr Mitchell today because of BP 254/136. Patient has noted increased bilateral leg edema and shortness of breath for the last week. He has been c/o lethargy for weeks. He has recently been on a "health kick" and has intentionally lost 25# by joining the [employer] for exercise 3-5 days per week as of 2 months ago and he and his have made healthier dietary choices. Due to worsening dyspnea on exertion and early fatigue he thought that his asthma may have been acting up so he started using his albuterol inhaler and it did not seem to be working and has run out. Patient denies any illness or coughing, fever, abdominal pain, nausea, vomiting, headache, chest pain, dizziness, numbness or tingling, syncope, visual changes. Patient denies any pain at this time. Patient states at this time he is feeling normal but if he is up and moving is when he feels shortness of breath. He established primary care today for his lethargy and above BP was noted and he was sent immediately to the ED. He has not been told his BP has been elevated previously. In ED he was noted with a number of abnormalities with BP 264/154 minimally changed with labetalol. CXR revealed cardiomegaly. EKG NSR with non- specific lucretia-lateral ST depressions. 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 He lives with his and 2 children (8 and 5), is non-smoker, and has recently stopped drinking alcohol 2 months ago. Father and paternal grandfather with h/o HTN, does not know his mother's lineage or health history. 04/12: Overnight BP improved a bit on cardene GTT, but still not weaned off. His Cr is stable. Troponin came down. He feels symptomatically improved. Of note, he recalls he was on HCTZ a few years ago, but after a f/u appt with normal BP he was instructed to stop. 04/13: Feeling improved. Still with elevated BP, but off cardene GTT. Renal function not improved. WBC down. Iron infusing. D/w him and bedside given normal appearing kidneys on ultrasound that pending his 24 hour urine protein results he may need renal biopsy ECHO The left ventricular systolic function is normal. The Ejection Fraction is 55-60%. There is normal LV segmental wall motion. Trace mitral regurgitation. Mild tricuspid regurgitation with an estimated PAP of 32 mmHg. There is no evidence of significant pericardial effusion. Renal function improved. Urine 24 hour protein > 2g, but less than 3g. BP still elevated despite close to max dosing of 4 medications. Hb 8 today. Consented for renal biopsy tomorrow. Vitals Vitals Vital Signs Date Time Temp Pulse Resp B/P (MAP) Pulse Ox O2 Delivery O2 Flow Rate FiO2 04/14/19 08:27 83 179/78 04/14/19 08:00 Room Air 2.0 04/14/19 07:00 97.7 20 97.7 04/13/19 22:35 99 Physical Exam General: Alert, Oriented X3, Cooperative, No acute distress Heart: Regular rate Abdomen: Normal bowel sounds, Soft Extremities: No clubbing, No cyanosis Skin: No breakdown Labs LABS Laboratory Tests Test 04/13/19 12:00 04/13/19 17:15 04/14/19 06:00 Urine Protein 77.9 mg/dL (Not Estab.) Urine Creatinine mg/dL 100.0 mg/dL (Not Estab.) Urine Creatinine mg/24 hr 2675 mg/24 hr (1231-4141) Creatinine Clearance 24 Hour 58 mL/min (97-137) Urine Protein 24 Hr Calculated 2084 mg/24 hr (30-150) Creatinine 3.18 mg/dL (0.76-1.27) 3.0 mg/dL (0.7-1.3) Estimated GFR (Non- 23 (>59) EGFR 27 (>59) Urine Opiates Screen Neg (NEG) Urine Methadone Screen Neg (NEG) Urine Barbiturates Neg (NEG) Urine Phencyclidine Screen Neg (NEG) Urine Amphetamine/Methamphetamine Neg (NEG) Urine Benzodiazepines Screen Neg (NEG) Urine Cocaine Screen Neg (NEG) Urine Cannabinoids Screen Pos (NEG) Urine Ethyl Alcohol Neg (NEG) White Blood Count 12.1 x10^3/uL (4.0-11.0) Red Blood Count 3.31 x10^6/uL (4.30-5.70) Hemoglobin 8.0 g/dL (13.0-17.5) Hematocrit 25.3 % (39.0-53.0) Mean Corpuscular Volume 76 fL (79-100) Mean Corpuscular Hemoglobin 24 pg (25-35) Mean Corpuscular Hemoglobin Concent 32 g/dL (31-37) Red Cell Distribution Width 16.7 % (11.5-14.5) Platelet Count 248 x10^3/uL (140-400) Neutrophils (%) (Auto) 80 % (31-73) Lymphocytes (%) (Auto) 11 % (24-48) Monocytes (%) (Auto) 7 % (0-9) Eosinophils (%) (Auto) 2 % (0-3) Basophils (%) (Auto) 1 % (0-3) Neutrophils # (Auto) 9.7 x10^3/uL (1.8-7.7) Lymphocytes # (Auto) 1.3 x10^3/uL (1.0-4.8) Monocytes # (Auto) 0.8 x10^3/uL (0.0-1.1) Eosinophils # (Auto) 0.2 x10^3/uL (0.0-0.7) Basophils # (Auto) 0.1 x10^3/uL (0.0-0.2) Sodium Level 134 mmol/L (136-145) Potassium Level 3.8 mmol/L (3.5-5.1) Chloride Level 96 mmol/L (98-107) Carbon Dioxide Level 31 mmol/L (21-32) Anion Gap 7 (6-14) Blood Urea Nitrogen 34 mg/dL (8-26) Estimated GFR (Cockcroft-Gault) 23.5 Glucose Level 102 mg/dL (70-99) Calcium Level 8.8 mg/dL (8.5-10.1) Phosphorus Level 4.6 mg/dL (2.6-4.7) Albumin 2.8 g/dL (3.4-5.0) Assessment and Plan Assessmemt and Plan Problems Medical Problems: (1) TERI (acute kidney injury) Status: Acute (2) Anemia Status: Acute (3) Edema Status: Acute (4) Elevated troponin Status: Acute (5) HTN (hypertension) Status: Acute (6) Hypertensive emergency Status: Acute (7) Hypoalbuminemia Status: Acute (8) Hypokalemia Status: Acute (9) Lethargy Status: Acute (10) Leukocytosis Status: Chronic Comment Review of Relevant I have reviewed the following items agustin (where applicable) has been applied. Labs Laboratory Tests Test 04/12/19 11:50 04/13/19 04:45 04/13/19 12:00 04/13/19 17:15 Troponin I Quantitative 0.195 ng/mL (0.000-0.055) White Blood Count 14.4 x10^3/uL (4.0-11.0) Red Blood Count 3.47 x10^6/uL (4.30-5.70) Hemoglobin 8.5 g/dL (13.0-17.5) Hematocrit 26.2 % (39.0-53.0) Mean Corpuscular Volume 76 fL (79-100) Mean Corpuscular Hemoglobin 25 pg (25-35) Mean Corpuscular Hemoglobin Concent 33 g/dL (31-37) Red Cell Distribution Width 16.4 % (11.5-14.5) Platelet Count 263 x10^3/uL (140-400) Neutrophils (%) (Auto) 78 % (31-73) Lymphocytes (%) (Auto) 14 % (24-48) Monocytes (%) (Auto) 6 % (0-9) Eosinophils (%) (Auto) 2 % (0-3) Basophils (%) (Auto) 1 % (0-3) Neutrophils # (Auto) 11.1 x10^3/uL (1.8-7.7) Lymphocytes # (Auto) 2.0 x10^3/uL (1.0-4.8) Monocytes # (Auto) 0.9 x10^3/uL (0.0-1.1) Eosinophils # (Auto) 0.2 x10^3/uL (0.0-0.7) Basophils # (Auto) 0.1 x10^3/uL (0.0-0.2) Sodium Level 133 mmol/L (136-145) Potassium Level 3.7 mmol/L (3.5-5.1) Chloride Level 97 mmol/L (98-107) Carbon Dioxide Level 30 mmol/L (21-32) Anion Gap 6 (6-14) Blood Urea Nitrogen 39 mg/dL (8-26) Creatinine 3.3 mg/dL (0.7-1.3) 3.18 mg/dL (0.76-1.27) Estimated GFR (Cockcroft-Gault) 21.1 Glucose Level 91 mg/dL (70-99) Calcium Level 8.6 mg/dL (8.5-10.1) Phosphorus Level 5.8 mg/dL (2.6-4.7) Albumin 3.0 g/dL (3.4-5.0) Urine Protein 77.9 mg/dL (Not Estab.) Urine Creatinine mg/dL 100.0 mg/dL (Not Estab.) Urine Creatinine mg/24 hr 2675 mg/24 hr (5937-9950) Creatinine Clearance 24 Hour 58 mL/min (97-137) Urine Protein 24 Hr Calculated 2084 mg/24 hr (30-150) Estimated GFR (Non- 23 (>59) EGFR 27 (>59) Urine Opiates Screen Neg (NEG) Urine Methadone Screen Neg (NEG) Urine Barbiturates Neg (NEG) Urine Phencyclidine Screen Neg (NEG) Urine Amphetamine/Methamphetamine Neg (NEG) Urine Benzodiazepines Screen Neg (NEG) Urine Cocaine Screen Neg (NEG) Urine Cannabinoids Screen Pos (NEG) Urine Ethyl Alcohol Neg (NEG) Test 04/14/19 06:00 White Blood Count 12.1 x10^3/uL (4.0-11.0) Red Blood Count 3.31 x10^6/uL (4.30-5.70) Hemoglobin 8.0 g/dL (13.0-17.5) Hematocrit 25.3 % (39.0-53.0) Mean Corpuscular Volume 76 fL (79-100) Mean Corpuscular Hemoglobin 24 pg (25-35) Mean Corpuscular Hemoglobin Concent 32 g/dL (31-37) Red Cell Distribution Width 16.7 % (11.5-14.5) Platelet Count 248 x10^3/uL (140-400) Neutrophils (%) (Auto) 80 % (31-73) Lymphocytes (%) (Auto) 11 % (24-48) Monocytes (%) (Auto) 7 % (0-9) Eosinophils (%) (Auto) 2 % (0-3) Basophils (%) (Auto) 1 % (0-3) Neutrophils # (Auto) 9.7 x10^3/uL (1.8-7.7) Lymphocytes # (Auto) 1.3 x10^3/uL (1.0-4.8) Monocytes # (Auto) 0.8 x10^3/uL (0.0-1.1) Eosinophils # (Auto) 0.2 x10^3/uL (0.0-0.7) Basophils # (Auto) 0.1 x10^3/uL (0.0-0.2) Sodium Level 134 mmol/L (136-145) Potassium Level 3.8 mmol/L (3.5-5.1) Chloride Level 96 mmol/L (98-107) Carbon Dioxide Level 31 mmol/L (21-32) Anion Gap 7 (6-14) Blood Urea Nitrogen 34 mg/dL (8-26) Creatinine 3.0 mg/dL (0.7-1.3) Estimated GFR (Cockcroft-Gault) 23.5 Glucose Level 102 mg/dL (70-99) Calcium Level 8.8 mg/dL (8.5-10.1) Phosphorus Level 4.6 mg/dL (2.6-4.7) Albumin 2.8 g/dL (3.4-5.0) Laboratory Tests Test 04/13/19 12:00 04/13/19 17:15 04/14/19 06:00 Urine Protein 77.9 mg/dL (Not Estab.) Urine Creatinine mg/dL 100.0 mg/dL (Not Estab.) Urine Creatinine mg/24 hr 2675 mg/24 hr (1300-2397) Creatinine Clearance 24 Hour 58 mL/min (97-137) Urine Protein 24 Hr Calculated 2084 mg/24 hr (30-150) Creatinine 3.18 mg/dL (0.76-1.27) 3.0 mg/dL (0.7-1.3) Estimated GFR (Non- 23 (>59) EGFR 27 (>59) Urine Opiates Screen Neg (NEG) Urine Methadone Screen Neg (NEG) Urine Barbiturates Neg (NEG) Urine Phencyclidine Screen Neg (NEG) Urine Amphetamine/Methamphetamine Neg (NEG) Urine Benzodiazepines Screen Neg (NEG) Urine Cocaine Screen Neg (NEG) Urine Cannabinoids Screen Pos (NEG) Urine Ethyl Alcohol Neg (NEG) White Blood Count 12.1 x10^3/uL (4.0-11.0) Red Blood Count 3.31 x10^6/uL (4.30-5.70) Hemoglobin 8.0 g/dL (13.0-17.5) Hematocrit 25.3 % (39.0-53.0) Mean Corpuscular Volume 76 fL (79-100) Mean Corpuscular Hemoglobin 24 pg (25-35) Mean Corpuscular Hemoglobin Concent 32 g/dL (31-37) Red Cell Distribution Width 16.7 % (11.5-14.5) Platelet Count 248 x10^3/uL (140-400) Neutrophils (%) (Auto) 80 % (31-73) Lymphocytes (%) (Auto) 11 % (24-48) Monocytes (%) (Auto) 7 % (0-9) Eosinophils (%) (Auto) 2 % (0-3) Basophils (%) (Auto) 1 % (0-3) Neutrophils # (Auto) 9.7 x10^3/uL (1.8-7.7) Lymphocytes # (Auto) 1.3 x10^3/uL (1.0-4.8) Monocytes # (Auto) 0.8 x10^3/uL (0.0-1.1) Eosinophils # (Auto) 0.2 x10^3/uL (0.0-0.7) Basophils # (Auto) 0.1 x10^3/uL (0.0-0.2) Sodium Level 134 mmol/L (136-145) Potassium Level 3.8 mmol/L (3.5-5.1) Chloride Level 96 mmol/L (98-107) Carbon Dioxide Level 31 mmol/L (21-32) Anion Gap 7 (6-14) Blood Urea Nitrogen 34 mg/dL (8-26) Estimated GFR (Cockcroft-Gault) 23.5 Glucose Level 102 mg/dL (70-99) Calcium Level 8.8 mg/dL (8.5-10.1) Phosphorus Level 4.6 mg/dL (2.6-4.7) Albumin 2.8 g/dL (3.4-5.0) Microbiology 04/11/19 Blood Culture - Preliminary, Resulted NO GROWTH AFTER 2 DAYS Medications Current Medications Labetalol HCl (Normodyne Iv Push) 10 mg 1X ONCE IVP Last administered on 04/11/19at 16:32; Start 04/11/19 at 16:00; Stop 04/11/19 at 16:01; Status DC Aspirin (Julian Aspirin) 325 mg 1X ONCE PO Last administered on 04/11/19at 16:31; Start 04/11/19 at 16:00; Stop 04/11/19 at 16:01; Status DC Furosemide (Lasix) 60 mg 1X ONCE IVP Last administered on 04/11/19at 18:05; Start 04/11/19 at 17:45; Stop 04/11/19 at 17:46; Status DC Potassium Chloride (Klor-Con) 20 meq 1X ONCE PO Last administered on 04/11/19at 18:04; Start 04/11/19 at 17:45; Stop 04/11/19 at 17:46; Status DC Ondansetron HCl (Zofran) 4 mg 1X ONCE IV Last administered on 04/11/19at 18:05; Start 04/11/19 at 17:45; Stop 04/11/19 at 17:46; Status DC Ondansetron HCl (Zofran) 4 mg PRN Q8HRS PRN IV NAUSEA/VOMITING; Start 04/11/19 at 17:45; Stop 04/11/19 at 20:23; Status DC Acetaminophen (Tylenol) 650 mg PRN Q4HRS PRN PO FEVER; Start 04/11/19 at 17:45; Stop 04/12/19 at 17:44; Status DC Nitroglycerin (Nitro-Bid Oint) 1 inch 1X ONCE TP Last administered on 04/11/19 at 18:49; Start 04/11/19 at 18:45; Stop 04/11/19 at 18:46; Status DC Ondansetron HCl (Zofran) 4 mg PRN Q6HRS PRN IV NAUSEA/VOMITING; Start 04/11/19 at 20:30 Labetalol HCl (Normodyne Iv Push) 20 mg PRN Q2HR PRN IVP HYPERTENSION Last administered on 04/14/19at 05:33; Start 04/11/19 at 20:30 Amlodipine Besylate (Norvasc) 5 mg DAILY PO Last administered on 04/13/19at 08:09; Start 04/11/19 at 20:30; Stop 04/13/19 at 10:07; Status DC Nicardipine HCl 50 mg/Sodium Chloride 250 ml @ 25 mls/hr CONT PRN IV SEE I/O RECORD Last administered on 04/12/19at 14:22; Start 04/11/19 at 20:45 Nitroglycerin (Nitro-Bid Oint) 1 inch Q6HRS TP Last administered on 04/12/19at 06:25; Start 04/11/19 at 20:45; Stop 04/12/19 at 09:44; Status DC Potassium Chloride (Klor-Con) 20 meq 1X ONCE PO Last administered on 04/11/19at 21:20; Start 04/11/19 at 21:15; Stop 04/11/19 at 21:16; Status DC Heparin Sodium (Porcine) (Heparin Sodium) 5,000 unit Q8HRS SQ Last administered on 04/14/19at 05:38; Start 04/11/19 at 22:00 Influenza Virus Vaccine Quadrival (Afluria Quad 2019-20 (3yr Up) Syringe) 0.5 ml ONCE ONCE VAX IM Last administered on 04/12/19at 09:03; Start 04/12/19 at 09:00; Stop 04/12/19 at 09:01; Status DC Hydralazine HCl (Apresoline) 50 mg BID PO Last administered on 04/13/19at 08:09; Start 04/12/19 at 10:00; Stop 04/13/19 at 10:07; Status DC Isosorbide Mononitrate (Imdur) 30 mg DAILY PO Last administered on 04/14/19at 08:26; Start 04/12/19 at 10:00; Stop 04/14/19 at 09:48; Status DC Carvedilol (Coreg) 6.25 mg BIDWMEALS PO Last administered on 04/13/19at 08:10; Start 04/12/19 at 10:00; Stop 04/13/19 at 16:53; Status DC Iron Sucrose 200 mg/Sodium Chloride 110 ml @ 55 mls/hr 1X ONCE IV Last administered on 04/12/19at 17:53; Start 04/12/19 at 16:00; Stop 04/12/19 at 17:59; Status DC Amlodipine Besylate (Norvasc) 10 mg DAILY PO Last administered on 04/14/19at 08:26; Start 04/14/19 at 09:00 Hydralazine HCl (Apresoline) 100 mg BID PO Last administered on 04/14/19at 08:27; Start 04/13/19 at 21:00; Stop 04/14/19 at 09:48; Status DC Amlodipine Besylate (Norvasc) 5 mg 1X ONCE PO Last administered on 04/13/19at 10:26; Start 04/13/19 at 10:30; Stop 04/13/19 at 10:31; Status DC Hydralazine HCl (Apresoline) 50 mg 1X ONCE PO Last administered on 04/13/19at 12:03; Start 04/13/19 at 12:00; Stop 04/13/19 at 12:01; Status DC Carvedilol (Coreg) 12.5 mg BIDWMEALS PO Last administered on 04/14/19at 08:27; Start 04/13/19 at 17:00 Isosorbide Mononitrate (Imdur) 30 mg DAILY ONCE PO Last administered on 04/13/19at 20:54; Start 04/13/19 at 21:00; Stop 04/13/19 at 21:01; Status DC Hydralazine HCl (Apresoline) 100 mg TID PO ; Start 04/14/19 at 14:00 Isosorbide Mononitrate (Imdur) 60 mg DAILY PO ; Start 04/15/19 at 09:00 Atorvastatin Calcium (Lipitor) 20 mg QHS PO ; Start 04/14/19 at 21:00 Isosorbide Mononitrate (Imdur) 30 mg 1X ONCE PO ; Start 04/14/19 at 10:00; Stop 04/14/19 at 10:01; Status DC Vitals/I & O Vital Sign - Last 24 Hours 04/13/19 04/13/19 04/13/19 04/13/19 12:03 13:44 14:11 17:11 Temp 98.8 98.8 Pulse 82 88 77 88 Resp 20 B/P (MAP) 150/79 189/75 175/79 (111) 174/81 Pulse Ox 99 O2 Delivery Nasal Cannula O2 Flow Rate 2.0 04/13/19 04/13/19 04/13/19 04/13/19 17:12 18:22 19:35 20:54 Temp 98.7 98.7 Pulse 86 77 77 Resp 20 B/P (MAP) 174/81 156/64 (94) 156/64 Pulse Ox 91 O2 Delivery Room Air Nasal Cannula O2 Flow Rate 2.0 04/13/19 04/13/19 04/14/19 04/14/19 20:54 22:35 03:00 05:33 Temp 98.2 98.2 Pulse 77 86 88 Resp 18 20 B/P (MAP) 156/64 147/64 (91) 165/74 (104) 182/85 Pulse Ox 99 O2 Delivery Nasal Cannula Nasal Cannula O2 Flow Rate 2.0 2.0 04/14/19 04/14/19 04/14/19 04/14/19 07:00 08:00 08:26 08:26 Temp 97.7 97.7 Pulse 83 83 83 Resp 20 B/P (MAP) 179/78 (111) 179/78 179/78 O2 Delivery Nasal Cannula Room Air O2 Flow Rate 3.0 2.0 04/14/19 04/14/19 08:27 08:27 Pulse 83 83 B/P (MAP) 179/78 179/78 Intake and Output 04/13/19 04/13/19 04/14/19 15:00 23:00 07:00 Intake Total 120 ml 800 ml 1700 ml Output Total 500 ml 400 ml 1025 ml Balance -380 ml 400 ml 675 ml JEFF ENGLAND MD Apr 14, 2019 10:46
--- NOTE | 2019-04-14 10:59 | CARD ---
MR#: [id number] Date of Study: 04/14/2019 Ordering Physician: JEFF ENGLAND, Referring Physician: JEFF ENGLAND, Evy: Rosemary Perez APPROVED REPORT EXAM: Two-dimensional and M-mode echocardiogram with Doppler and color Doppler. Other Information Quality : AverageHR: 80bpm INDICATION Cardiomyopathy 2D DIMENSIONS RVDd2.8 (2.9-3.5cm)Left Atrium(2D)4.0 (1.6-4.0cm) IVSd1.6 (0.7-1.1cm)Aortic Root(2D)2.4 (2.0-3.7cm) LVDd5.1 (3.9-5.9cm)LVOT Diameter2.3 (1.8-2.4cm) PWd1.7 (0.7-1.1cm)LVDs3.3 (2.5-4.0cm) FS (%) 36.2 %SV82.0 ml LVEF(%)65.6 (>50%) Aortic Valve AoV Peak Amaury.149.1cm/sAoV VTI24.2cm AO Peak GR.8.9mmHgLVOT Peak Amaury.115.2cm/s AO Mean GR.6mmHgAVA (VMAX)3.26cm2 Mitral Valve MV E Yjivkezm55.8cm/sMV E Peak Gr.5mmHg MV DECEL [id number] A Eusuqwsu20.0cm/s MV E Mean Gr.2mmHgE/A Ratio1.7 Pulmonary Valve PV Peak Nvjvxtaa56.3cm/s Tricuspid Valve TR P. [id number]/sRAP [id number] TR Peak Gr.27rcYyCKLB88ryRd Pulmonary Vein S1 Ujyaeuro86.0cm/sD2 Azyjnsnm45.9cm/s LEFT VENTRICLE The left ventricle is normal size. There is mild to moderate concentric left ventricular hypertrophy. The left ventricular systolic function is normal. The Ejection Fraction is 55-60%. There is normal L V segmental wall motion. The left ventricular diastolic function and filling is normal for age. RIGHT VENTRICLE The right ventricle is mildly dilated. The right ventricular systolic function is normal. ATRIA The left atrium size is normal. The right atrium size is normal. The interatrial septum is intact wit h no evidence for an atrial septal defect or patent foramen ovale as noted on 2-D or Doppler imaging. AORTIC VALVE The aortic valve is normal in structure and function. Doppler and Color Flow revealed no significant aortic regurgitation. There is no significant aortic valvular stenosis. MITRAL VALVE The mitral valve is normal in structure and function. There is no evidence of mitral valve prolapse. There is no mitral valve stenosis. Doppler and Color-flow revealed trace mitral regurgitation. TRICUSPID VALVE The tricuspid valve is normal in structure and function. Doppler and Color Flow revealed mild tricusp id regurgitation with an estimated PAP of 32 mmHg. There is no tricuspid valve stenosis. PULMONIC VALVE The pulmonic valve is not well visualized. Doppler and Color Flow revealed no pulmonic valvular regur gitation. GREAT VESSELS The aortic root is normal in size. The ascending aorta is normal in size. The IVC is dilated and rina apses >50% with inspiration. PERICARDIAL EFFUSION There is no pleural effusion. There is no evidence of significant pericardial effusion. Critical Notification Critical Value: No <Conclusion> The left ventricular systolic function is normal. The Ejection Fraction is 55-60%. There is normal LV segmental wall motion. Trace mitral regurgitation. Mild tricuspid regurgitation with an estimated PAP of 32 mmHg. There is no evidence of significant pericardial effusion. Signed by : Naun Rosales, Electronically Approved : 04/14/2019 10:59:21
--- NOTE | 2019-04-14 11:46 | PDOC ---
SUBJECTIVE ROS Follow-up for acute kidney injury, possible underlying chronic kidney disease and uncontrolled hypertension Patient claims he's feeling well enough to go home today. He has been taken off his Cardene drip however blood pressures continue to remain elevated. CVS: no Orthopnea, no CP RESP: no SOB, no MARIN GI: no Nausea, no Vomiting : no Dysuria, no Urgency OBJECTIVE Vital Signs Vital Signs Date Time Temp Pulse Resp B/P (MAP) Pulse Ox O2 Delivery O2 Flow Rate FiO2 04/14/19 11:04 83 155/71 04/14/19 08:00 Room Air 2.0 04/14/19 07:00 97.7 20 97.7 04/13/19 22:35 99 I & 0 Intake and Output 04/14/19 07:00 Intake Total 2620 ml Output Total 1925 ml Balance 695 ml Intake Oral 2620 ml Output Urine Total 1925 ml PHYSICAL EXAM Physical Exam GEN: Awake, Oriented x 3, In no distress EYES: Vision Unchanged, Conjunctiva Normal EN: No EN Drainage, Mucous Membranes m oist NECK: no JVD, no JVP, Supple, no Thyromegaly CVS: S1S2, no Murmur, No Gallop, No Rub,no Edema RESP: no Rales, no Rhonchi,no Acc. Muscle Use GI: BS + ve, NO Bruit, Non Tender, Non Distended : no CVA tenderness, no Suprapubic Tenderness DIAGNOSIS/ASSESSMENT Assessment & Plan Acute kidney injury: Creatinine appears to have improved slightly at 3.0. Current fluid and E-lyte status does not necessitate emergent need for dialysis. Possible underlying chronic kidney disease stage IV at current GFR levels cannot be ruled out. Iron deficiency ANEMIA; IV iron has been started. We'll consult GI for further evaluation of the same. Patient not aware of known blood loss per se HTN associated with chronic kidney disease stage IV:Current BP meds as reviewed. See orders for changes. Patient claims grandfather as well as father both had diagnosed hypertension early in life. Patient did present with hypokalemia at presentation despite not being on HCTZ. This raises a possibility of little syndrome. Amiloride is not available and not facility. Hence controlled blood pressures with current regimen as best tolerated Hypo-albuminemia: Possibly associated with proteinuria. Proteinuria is not noted to be nephrotic syndrome per se. Proteinuria: Proceed with kidney biopsy tomorrow. Obesity related glomerulopathy cannot be ruled out. I had an extensive discussion with the patient regarding indications for biopsy, and information to be gleaned from the same as well as prognosis. Severe exogenous obesity: Weight loss will need to be emphasized Mildly elevated phosphorus. Corrosion Control Technician will be consultative advice regarding diet. May not need potassium restriction given low potassium at presentation. Discussed Plan of Care with patient at bedside. Also discussed with nurse and Dr. guzman. Patient received one-time aspirin on Sunday hence kidney biopsy will be delayed until tomorrow. COMMENT/RELEVANT DATA Meds Current Medications Medications (Trade) Dose Ordered Sig/Radha Start Time Stop Time Status Last Admin Dose Admin Acetaminophen (Tylenol) 650 mg PRN Q4HRS PRN 04/11/19 17:45 04/12/19 17:44 DC Amlodipine Besylate (Norvasc) 5 mg 1X ONCE 04/13/19 10:30 04/13/19 10:31 DC 04/13/19 10:26 5 MG Aspirin (Julian Aspirin) 325 mg 1X ONCE 04/11/19 16:00 04/11/19 16:01 DC 04/11/19 16:31 325 MG Atorvastatin Calcium (Lipitor) 20 mg QHS 04/14/19 21:00 Carvedilol (Coreg) 12.5 mg BIDWMEALS 04/13/19 17:00 04/14/19 08:27 12.5 MG Furosemide (Lasix) 60 mg 1X ONCE 04/11/19 17:45 04/11/19 17:46 DC 04/11/19 18:05 60 MG Heparin Sodium (Porcine) (Heparin Sodium) 5,000 unit Q8HRS 04/11/19 22:00 04/14/19 05:38 5,000 UNIT Hydralazine HCl (Apresoline) 100 mg TID 04/14/19 14:00 Influenza Virus Vaccine Quadrival (Afluria Quad 2019-20 (3yr Up) Syringe) 0.5 ml ONCE ONCE 04/12/19 09:00 04/12/19 09:01 DC 04/12/19 09:03 0.5 ML Iron Sucrose 200 mg/Sodium Chloride 110 ml @ 55 mls/hr 1X ONCE 04/12/19 16:00 04/12/19 17:59 DC 04/12/19 17:53 55 MLS/HR Isosorbide Mononitrate (Imdur) 30 mg 1X ONCE 04/14/19 10:00 04/14/19 10:01 DC 04/14/19 11:04 30 MG Labetalol HCl (Normodyne Iv Push) 20 mg PRN Q2HR PRN 04/11/19 20:30 04/14/19 05:33 20 MG Nicardipine HCl 50 mg/Sodium Chloride 250 ml @ 25 mls/hr CONT PRN 04/11/19 20:45 04/12/19 14:22 50 MLS/HR Nitroglycerin (Nitro-Bid Oint) 1 inch Q6HRS 04/11/19 20:45 04/12/19 09:44 DC 04/12/19 06:25 1 INCH Ondansetron HCl (Zofran) 4 mg PRN Q6HRS PRN 04/11/19 20:30 Potassium Chloride (Klor-Con) 20 meq 1X ONCE 04/11/19 21:15 04/11/19 21:16 DC 04/11/19 21:20 20 MEQ Lab Laboratory Tests Test 04/13/19 12:00 04/13/19 17:15 04/14/19 06:00 Urine Protein 77.9 mg/dL (Not Estab.) Urine Creatinine mg/dL 100.0 mg/dL (Not Estab.) Urine Creatinine mg/24 hr 2675 mg/24 hr (3191-6136) Creatinine Clearance 24 Hour 58 mL/min (97-137) Urine Protein 24 Hr Calculated 2084 mg/24 hr (30-150) Creatinine 3.18 mg/dL (0.76-1.27) 3.0 mg/dL (0.7-1.3) Estimated GFR (Non- 23 (>59) EGFR 27 (>59) Urine Opiates Screen Neg (NEG) Urine Methadone Screen Neg (NEG) Urine Barbiturates Neg (NEG) Urine Phencyclidine Screen Neg (NEG) Urine Amphetamine/Methamphetamine Neg (NEG) Urine Benzodiazepines Screen Neg (NEG) Urine Cocaine Screen Neg (NEG) Urine Cannabinoids Screen Pos (NEG) Urine Ethyl Alcohol Neg (NEG) White Blood Count 12.1 x10^3/uL (4.0-11.0) Red Blood Count 3.31 x10^6/uL (4.30-5.70) Hemoglobin 8.0 g/dL (13.0-17.5) Hematocrit 25.3 % (39.0-53.0) Mean Corpuscular Volume 76 fL (79-100) Mean Corpuscular Hemoglobin 24 pg (25-35) Mean Corpuscular Hemoglobin Concent 32 g/dL (31-37) Red Cell Distribution Width 16.7 % (11.5-14.5) Platelet Count 248 x10^3/uL (140-400) Neutrophils (%) (Auto) 80 % (31-73) Lymphocytes (%) (Auto) 11 % (24-48) Monocytes (%) (Auto) 7 % (0-9) Eosinophils (%) (Auto) 2 % (0-3) Basophils (%) (Auto) 1 % (0-3) Neutrophils # (Auto) 9.7 x10^3/uL (1.8-7.7) Lymphocytes # (Auto) 1.3 x10^3/uL (1.0-4.8) Monocytes # (Auto) 0.8 x10^3/uL (0.0-1.1) Eosinophils # (Auto) 0.2 x10^3/uL (0.0-0.7) Basophils # (Auto) 0.1 x10^3/uL (0.0-0.2) Sodium Level 134 mmol/L (136-145) Potassium Level 3.8 mmol/L (3.5-5.1) Chloride Level 96 mmol/L (98-107) Carbon Dioxide Level 31 mmol/L (21-32) Anion Gap 7 (6-14) Blood Urea Nitrogen 34 mg/dL (8-26) Estimated GFR (Cockcroft-Gault) 23.5 Glucose Level 102 mg/dL (70-99) Calcium Level 8.8 mg/dL (8.5-10.1) Phosphorus Level 4.6 mg/dL (2.6-4.7) Albumin 2.8 g/dL (3.4-5.0) Results All relevant outside records, renal labs, imaging studies, telemetry/EKG's were reviewed. Other Renal artery duplex: Impression: Limited study. No abnormal velocities detected. The left renal arteries is not well evaluated. AVNI ABBASI MD Apr 14, 2019 11:46
--- NOTE | 2019-04-14 13:20 | PDOC2 ---
CONSULT Date of Consult Date of Consult DATE: 04/14/19 TIME: 13:18 Reason for Consult Reason for Consult: Iron deficiency anemia Past Medical History Cardiovascular: No pertinent hx, HTN Pulmonary: Asthma GI: No pertinent hx Heme/Onc: No pertinent hx Hepatobiliary: No pertinent hx Psych: No pertinent hx Rheumatologic: No pertinent hx Infectious disease: No pertinent hx ENT: No pertinent hx Renal/: No pertinent hx Endocrine: No pertinent hx Dermatology: No pertinent hx Past Surgical History Past Surgical History: No pertinent history Family History Family History: Hypertension Social History Social History: Parent (Father - HTN), Grandparents (Paternal Grandfather - HTN) No ALCOHOL: occassional Drugs: Marijuana Current Problem List Problem List Problems Medical Problems: (1) TERI (acute kidney injury) Status: Acute (2) Anemia Status: Acute (3) Edema Status: Acute (4) Elevated troponin Status: Acute (5) HTN (hypertension) Status: Acute (6) Hypertensive emergency Status: Acute (7) Hypoalbuminemia Status: Acute (8) Hypokalemia Status: Acute (9) Lethargy Status: Acute (10) Leukocytosis Status: Chronic Current Medications Current Medications Current Medications Labetalol HCl (Normodyne Iv Push) 10 mg 1X ONCE IVP Last administered on 04/11/19at 16:32; Start 04/11/19 at 16:00; Stop 04/11/19 at 16:01; Status DC Aspirin (Julian Aspirin) 325 mg 1X ONCE PO Last administered on 04/11/19at 16:31; Start 04/11/19 at 16:00; Stop 04/11/19 at 16:01; Status DC Furosemide (Lasix) 60 mg 1X ONCE IVP Last administered on 04/11/19at 18:05; Start 04/11/19 at 17:45; Stop 04/11/19 at 17:46; Status DC Potassium Chloride (Klor-Con) 20 meq 1X ONCE PO Last administered on 04/11/19at 18:04; Start 04/11/19 at 17:45; Stop 04/11/19 at 17:46; Status DC Ondansetron HCl (Zofran) 4 mg 1X ONCE IV Last administered on 04/11/19at 18:05; Start 04/11/19 at 17:45; Stop 04/11/19 at 17:46; Status DC Ondansetron HCl (Zofran) 4 mg PRN Q8HRS PRN IV NAUSEA/VOMITING; Start 04/11/19 at 17:45; Stop 04/11/19 at 20:23; Status DC Acetaminophen (Tylenol) 650 mg PRN Q4HRS PRN PO FEVER; Start 04/11/19 at 17:45; Stop 04/12/19 at 17:44; Status DC Nitroglycerin (Nitro-Bid Oint) 1 inch 1X ONCE TP Last administered on 04/11/19at 18:49; Start 04/11/19 at 18:45; Stop 04/11/19 at 18:46; Status DC Ondansetron HCl (Zofran) 4 mg PRN Q6HRS PRN IV NAUSEA/VOMITING; Start 04/11/19 at 20:30 Labetalol HCl (Normodyne Iv Push) 20 mg PRN Q2HR PRN IVP HYPERTENSION Last administered on 04/14/19at 05:33; Start 04/11/19 at 20:30 Amlodipine Besylate (Norvasc) 5 mg DAILY PO Last administered on 04/13/19at 08:09; Start 04/11/19 at 20:30; Stop 04/13/19 at 10:07; Status DC Nicardipine HCl 50 mg/Sodium Chloride 250 ml @ 25 mls/hr CONT PRN IV SEE I/O RECORD Last administered on 04/12/19at 14:22; Start 04/11/19 at 20:45 Nitroglycerin (Nitro-Bid Oint) 1 inch Q6HRS TP Last administered on 04/12/19at 06:25; Start 04/11/19 at 20:45; Stop 04/12/19 at 09:44; Status DC Potassium Chloride (Klor-Con) 20 meq 1X ONCE PO Last administered on 04/11/19at 21:20; Start 04/11/19 at 21:15; Stop 04/11/19 at 21:16; Status DC Heparin Sodium (Porcine) (Heparin Sodium) 5,000 unit Q8HRS SQ Last administered on 04/14/19at 05:38; Start 04/11/19 at 22:00 Influenza Virus Vaccine Quadrival (Afluria Quad 2019-20 (3yr Up) Syringe) 0.5 ml ONCE ONCE VAX IM Last administered on 04/12/19at 09:03; Start 04/12/19 at 09:00; Stop 04/12/19 at 09:01; Status DC Hydralazine HCl (Apresoline) 50 mg BID PO Last administered on 04/13/19 08:09; Start 04/12/19 at 10:00; Stop 04/13/19 at 10:07; Status DC Isosorbide Mononitrate (Imdur) 30 mg DAILY PO Last administered on 04/14/19 08:26; Start 04/12/19 at 10:00; Stop 04/14/19 at 09:48; Status DC Carvedilol (Coreg) 6.25 mg BIDWMEALS PO Last administered on 04/13/19 08:10; Start 04/12/19 at 10:00; Stop 04/13/19 at 16:53; Status DC Iron Sucrose 200 mg/Sodium Chloride 110 ml @ 55 mls/hr 1X ONCE IV Last administered on 04/12/19 17:53; Start 04/12/19 at 16:00; Stop 04/12/19 at 17:59; Status DC Amlodipine Besylate (Norvasc) 10 mg DAILY PO Last administered on 04/14/19 08:26; Start 04/14/19 at 09:00 Hydralazine HCl (Apresoline) 100 mg BID PO Last administered on 04/14/19 08:27; Start 04/13/19 at 21:00; Stop 04/14/19 at 09:48; Status DC Amlodipine Besylate (Norvasc) 5 mg 1X ONCE PO Last administered on 04/13/19at 10:26; Start 04/13/19 at 10:30; Stop 04/13/19 at 10:31; Status DC Hydralazine HCl (Apresoline) 50 mg 1X ONCE PO Last administered on 04/13/19 12:03; Start 04/13/19 at 12:00; Stop 04/13/19 at 12:01; Status DC Carvedilol (Coreg) 12.5 mg BIDWMEALS PO Last administered on 04/14/19 08:27; Start 04/13/19 at 17:00 Isosorbide Mononitrate (Imdur) 30 mg DAILY ONCE PO Last administered on 04/13/19at 20:54; Start 04/13/19 at 21:00; Stop 04/13/19 at 21:01; Status DC Hydralazine HCl (Apresoline) 100 mg TID PO ; Start 04/14/19 at 14:00 Isosorbide Mononitrate (Imdur) 60 mg DAILY PO ; Start 04/15/19 at 09:00 Atorvastatin Calcium (Lipitor) 20 mg QHS PO ; Start 04/14/19 at 21:00 Isosorbide Mononitrate (Imdur) 30 mg 1X ONCE PO Last administered on 04/14/19at 11:04; Start 04/14/19 at 10:00; Stop 04/14/19 at 10:01; Status DC Clonidine HCl (Catapres) 0.2 mg Q8HRS PO ; Start 04/14/19 at 14:00 Allergies Allergies: Coded Allergies: No Known Drug Allergies (Unverified , 04/11/19) Vitals VITALS Vital Signs Date Time Temp Pulse Resp B/P (MAP) Pulse Ox O2 Delivery O2 Flow Rate FiO2 04/14/19 11:25 98.0 77 18 160/79 (106) 97 Room Air 98.0 04/14/19 08:00 2.0 Labs Labs Laboratory Tests Test 04/13/19 04:45 04/13/19 12:00 04/13/19 17:15 04/14/19 06:00 White Blood Count 14.4 x10^3/uL (4.0-11.0) 12.1 x10^3/uL (4.0-11.0) Red Blood Count 3.47 x10^6/uL (4.30-5.70) 3.31 x10^6/uL (4.30-5.70) Hemoglobin 8.5 g/dL (13.0-17.5) 8.0 g/dL (13.0-17.5) Hematocrit 26.2 % (39.0-53.0) 25.3 % (39.0-53.0) Mean Corpuscular Volume 76 fL (79-100) 76 fL (79-100) Mean Corpuscular Hemoglobin 25 pg (25-35) 24 pg (25-35) Mean Corpuscular Hemoglobin Concent 33 g/dL (31-37) 32 g/dL (31-37) Red Cell Distribution Width 16.4 % (11.5-14.5) 16.7 % (11.5-14.5) Platelet Count 263 x10^3/uL (140-400) 248 x10^3/uL (140-400) Neutrophils (%) (Auto) 78 % (31-73) 80 % (31-73) Lymphocytes (%) (Auto) 14 % (24-48) 11 % (24-48) Monocytes (%) (Auto) 6 % (0-9) 7 % (0-9) Eosinophils (%) (Auto) 2 % (0-3) 2 % (0-3) Basophils (%) (Auto) 1 % (0-3) 1 % (0-3) Neutrophils # (Auto) 11.1 x10^3/uL (1.8-7.7) 9.7 x10^3/uL (1.8-7.7) Lymphocytes # (Auto) 2.0 x10^3/uL (1.0-4.8) 1.3 x10^3/uL (1.0-4.8) Monocytes # (Auto) 0.9 x10^3/uL (0.0-1.1) 0.8 x10^3/uL (0.0-1.1) Eosinophils # (Auto) 0.2 x10^3/uL (0.0-0.7) 0.2 x10^3/uL (0.0-0.7) Basophils # (Auto) 0.1 x10^3/uL (0.0-0.2) 0.1 x10^3/uL (0.0-0.2) Sodium Level 133 mmol/L (136-145) 134 mmol/L (136-145) Potassium Level 3.7 mmol/L (3.5-5.1) 3.8 mmol/L (3.5-5.1) Chloride Level 97 mmol/L (98-107) 96 mmol/L (98-107) Carbon Dioxide Level 30 mmol/L (21-32) 31 mmol/L (21-32) Anion Gap 6 (6-14) 7 (6-14) Blood Urea Nitrogen 39 mg/dL (8-26) 34 mg/dL (8-26) Creatinine 3.3 mg/dL (0.7-1.3) 3.18 mg/dL (0.76-1.27) 3.0 mg/dL (0.7-1.3) Estimated GFR (Cockcroft-Gault) 21.1 23.5 Glucose Level 91 mg/dL (70-99) 102 mg/dL (70-99) Calcium Level 8.6 mg/dL (8.5-10.1) 8.8 mg/dL (8.5-10.1) Phosphorus Level 5.8 mg/dL (2.6-4.7) 4.6 mg/dL (2.6-4.7) Albumin 3.0 g/dL (3.4-5.0) 2.8 g/dL (3.4-5.0) Urine Protein 77.9 mg/dL (Not Estab.) Urine Creatinine mg/dL 100.0 mg/dL (Not Estab.) Urine Creatinine mg/24 hr 2675 mg/24 hr (0979-5946) Creatinine Clearance 24 Hour 58 mL/min (97-137) Urine Protein 24 Hr Calculated 2084 mg/24 hr (30-150) Estimated GFR (Non- 23 (>59) EGFR 27 (>59) Urine Opiates Screen Neg (NEG) Urine Methadone Screen Neg (NEG) Urine Barbiturates Neg (NEG) Urine Phencyclidine Screen Neg (NEG) Urine Amphetamine/Methamphetamine Neg (NEG) Urine Benzodiazepines Screen Neg (NEG) Urine Cocaine Screen Neg (NEG) Urine Cannabinoids Screen Pos (NEG) Urine Ethyl Alcohol Neg (NEG) Laboratory Tests Test 04/13/19 17:15 04/14/19 06:00 Urine Opiates Screen Neg (NEG) Urine Methadone Screen Neg (NEG) Urine Barbiturates Neg (NEG) Urine Phencyclidine Screen Neg (NEG) Urine Amphetamine/Methamphetamine Neg (NEG) Urine Benzodiazepines Screen Neg (NEG) Urine Cocaine Screen Neg (NEG) Urine Cannabinoids Screen Pos (NEG) Urine Ethyl Alcohol Neg (NEG) White Blood Count 12.1 x10^3/uL (4.0-11.0) Red Blood Count 3.31 x10^6/uL (4.30-5.70) Hemoglobin 8.0 g/dL (13.0-17.5) Hematocrit 25.3 % (39.0-53.0) Mean Corpuscular Volume 76 fL (79-100) Mean Corpuscular Hemoglobin 24 pg (25-35) Mean Corpuscular Hemoglobin Concent 32 g/dL (31-37) Red Cell Distribution Width 16.7 % (11.5-14.5) Platelet Count 248 x10^3/uL (140-400) Neutrophils (%) (Auto) 80 % (31-73) Lymphocytes (%) (Auto) 11 % (24-48) Monocytes (%) (Auto) 7 % (0-9) Eosinophils (%) (Auto) 2 % (0-3) Basophils (%) (Auto) 1 % (0-3) Neutrophils # (Auto) 9.7 x10^3/uL (1.8-7.7) Lymphocytes # (Auto) 1.3 x10^3/uL (1.0-4.8) Monocytes # (Auto) 0.8 x10^3/uL (0.0-1.1) Eosinophils # (Auto) 0.2 x10^3/uL (0.0-0.7) Basophils # (Auto) 0.1 x10^3/uL (0.0-0.2) Sodium Level 134 mmol/L (136-145) Potassium Level 3.8 mmol/L (3.5-5.1) Chloride Level 96 mmol/L (98-107) Carbon Dioxide Level 31 mmol/L (21-32) Anion Gap 7 (6-14) Blood Urea Nitrogen 34 mg/dL (8-26) Creatinine 3.0 mg/dL (0.7-1.3) Estimated GFR (Cockcroft-Gault) 23.5 Glucose Level 102 mg/dL (70-99) Calcium Level 8.8 mg/dL (8.5-10.1) Phosphorus Level 4.6 mg/dL (2.6-4.7) Albumin 2.8 g/dL (3.4-5.0) Assessment/Plan Assessment/Plan Iron def anemia- with ALYSSA, etiology tob e determined. Malignancy, IBD, PUD, AVMS, and/or celac disease in differential. Plan o/p EGD/colonoscopy to further assess once renal issues stabilized Full note dictated CHARLES YORK MD Apr 14, 2019 13:20
--- NOTE | 2019-04-14 13:36 | NUR ---
SS following for discharge planning. SS reviewed pt chart. Pt is from home with spouse and is currently on room air. SS will continue to follow for discharge planning.
[2019-04-14] MEDS: cloNIDine HCL 0.2 MG TABLET PO SCH ×2 (13:45→22:14)
--- NOTE | 2019-04-14 14:20 | CONS ---
DATE OF CONSULTATION: REASON FOR CONSULTATION: Iron deficiency anemia and chronic renal insufficiency. HISTORY OF PRESENT ILLNESS: This is a 39-year-old male with past medical history significant for asthma, morbid obesity with acute renal insufficiency with a creatinine of 3, was admitted to [facility] with increasing dyspnea and shortness of breath as well as lethargy. Subsequent evaluation has revealed hemoglobin of 8.0 with an iron of 30, iron saturation of a TIBC of 365. He has no visible melena and/or hematochezia. Weight and appetite have been stable until recently and there is no family history of colon polyps, colon cancer, or inflammatory bowel disease. With continued anemia, consultation is requested. PAST MEDICAL HISTORY: Asthma, obesity, acute renal insufficiency. MEDICATIONS: Include Imdur, Lipitor, Catapres, hydralazine, Norvasc, Coreg. 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 He is an ex-smoker and former drinker. FAMILY HISTORY: Significant for hypertension. REVIEW OF SYSTEMS: HEENT: There is no decrease in visual acuity issues. CARDIAC: History of hypertension. PULMONARY: History of asthma. NEUROLOGIC: No stroke, migraine, or neuropathy. PSYCHIATRIC: No mood swings, depression, or insomnia. HEMATOLOGIC: History of iron deficiency anemia. PSYCHIATRIC: No mood swings, depression, or insomnia. DERMATOLOGIC: No skin rashes or pruritus. ENDOCRINE: No history of heat or cold intolerance, thyroid disease or diabetes. MUSCULOSKELETAL: No osteoarthrosis, arthralgias, or myalgias. PHYSICAL EXAMINATION: GENERAL: Reveals a well-nourished, well-developed male. VITAL SIGNS: Temperature is 98.5, pulse 77, respirations 16, blood pressure 160/78. HEENT: Exam is normocephalic, atraumatic head. Pupils and extraocular muscles are not tested. Sclerae anicteric. NECK: Supple. LUNGS: Clear. CARDIOVASCULAR: Reveals an S1, S2 without S3, S4 or appreciable murmur. ABDOMEN: Reveals a soft abdomen, normal bowel sounds, without appreciable hepatosplenomegaly. EXTREMITIES: Reveals no cyanosis, clubbing or edema. LABORATORY STUDIES: Sodium 134, potassium 3.8, chloride 98, BUN is 34, creatinine 3.0, glucose is 102, calcium is 8.6, phosphorus is 4.8. Iron is 30, TIBC is ____. Iron saturation is 8%. IMPRESSION: Iron deficiency anemia in the setting of acute renal insufficiency. Differential includes colonic polyps, malignancy, inflammatory bowel disease. Therefore, recommend eventual outpatient upper endoscopy and colonoscopy to further assess the symptoms once renal function stabilized and renal biopsy has been performed. CHARLES YORK MD DR: DARRYL/thomas JOB#: [id number] / [id number] JEFF Bragg MD
[2019-04-14] MEDS: ATORVASTATIN CALCIUM 20 MG TABLET PO SCH (21:25)
[2019-04-15] VITALS (21 sets, daily range): BP systolic 97–186; BP diastolic 55–94
[2019-04-15] MEDS: HEPARIN for SUB-Q USE 5,000 UNIT/ML VIAL. SQ SCH ×3 (06:00→22:15)
[2019-04-15] MEDS: cloNIDine HCL 0.2 MG TABLET PO SCH ×3 (06:11→22:11)
[2019-04-15] MEDS: LABETALOL 20 MG/4 ML DISP.SYRIN. IVP PRN (08:23)
[2019-04-15] MEDS ORDERED: GELATIN SPONGE SIZE 12-7MM SPONGE. ONE (11:41)
[2019-04-15] MEDS ORDERED: LIDOCAINE WITH 8.4% SOD BICARB 3 ML DISP.SYRIN. ONE (11:41)
--- NOTE | 2019-04-15 11:56 | PDOC ---
SUBJECTIVE ROS Acute kidney injury Patient currently waiting on kidney biopsy which is planned for later today. He is otherwise ready to go home today. CVS: no Orthopnea, no CP RESP: no SOB, no MARIN GI: nono Nausea, no Vomiting : no Dysuria, no Urgency OBJECTIVE Vital Signs Vital Signs Date Time Temp Pulse Resp B/P (MAP) Pulse Ox O2 Delivery O2 Flow Rate FiO2 04/15/19 08:23 85 180/90 04/15/19 08:00 Room Air 04/15/19 07:00 97.7 20 100 2.0 97.7 I & 0 Intake and Output 04/15/19 07:00 Intake Total 1400 ml Output Total 850 ml Balance 550 ml Intake Oral 1400 ml Output Urine Total 850 ml # Voids 2 PHYSICAL EXAM Physical Exam GEN: Awake, Oriented x 3, In no distress, obese gentleman EYES: Vision Unchanged, Conjunctiva Normal EN: No EN Drainage, Mucous Membranes m oist NECK: no JVD, no JVP, Supple, no Thyromegaly CVS: S1S2, no Murmur, No Gallop, No Rub,no Edema RESP: no Rales, no Rhonchi,no Acc. Muscle Use GI: BS + ve, NO Bruit, Non Tender, Non Distended : no CVA tenderness, no Suprapubic Tenderness DIAGNOSIS/ASSESSMENT Assessment & Plan Acute kidney injury: Creatinine appears to have stabilized at 3.0. Current fluid and E-lyte status does not necessitate emergent need for dialysis. Possible underlying chronic kidney disease stage IV at current GFR levels cannot be ruled out. Iron deficiency ANEMIA; PO iron has been started pending GI evaluation of the s guillermo. May eventually need erythropoietin HTN associated with chronic kidney disease stage IV:Current BP meds as reviewed. See orders for changes. Patient claims grandfather as well as father both had diagnosed hypertension early in life. Patient did present with hypokalemia at presentation despite not being on HCTZ. This raises a possibility of santiago syndrome. Amiloride is not available at this facility. Hence control blood pressures with current regimen as best tolerated. Hypo-albuminemia: Possibly associated with proteinuria. Proteinuria is not noted to be nephrotic syndrome per se. Proteinuria: Proceed with kidney biopsy later today. Obesity related glomerulopathy cannot be ruled out. Severe exogenous obesity: Weight loss will need to be emphasized Mildly elevated phosphorus. Now improved. Patient has been seen by Diesel Plant Operator and consult regarding his diet Discussed Plan of Care with patient and at bedside. Okay to discharge from renal standpoint after kidney biopsy. Patient and counselled regarding home blood pressure monitoring, diet especially watching salt: , follow-up as well as weight loss down the road COMMENT/RELEVANT DATA Meds Current Medications Medications (Trade) Dose Ordered Sig/Radha Start Time Stop Time Status Last Admin Dose Admin Acetaminophen (Tylenol) 650 mg PRN Q4HRS PRN 04/11/19 17:45 04/12/19 17:44 DC Amlodipine Besylate (Norvasc) 5 mg 1X ONCE 04/13/19 10:30 04/13/19 10:31 DC 04/13/19 10:26 5 MG Aspirin (Julian Aspirin) 325 mg 1X ONCE 04/11/19 16:00 04/11/19 16:01 DC 04/11/19 16:31 325 MG Atorvastatin Calcium (Lipitor) 20 mg QHS 04/14/19 21:00 04/14/19 21:25 20 MG Carvedilol (Coreg) 12.5 mg BIDWMEALS 04/13/19 17:00 04/14/19 17:14 12.5 MG Clonidine HCl (Catapres) 0.2 mg Q8HRS 04/14/19 14:00 04/15/19 06:11 0.2 MG Furosemide (Lasix) 60 mg 1X ONCE 04/11/19 17:45 04/11/19 17:46 DC 04/11/19 18:05 60 MG Heparin Sodium (Porcine) (Heparin Sodium) 5,000 unit Q8HRS 04/11/19 22:00 04/14/19 22:17 5,000 UNIT Hydralazine HCl (Apresoline) 100 mg TID 04/14/19 14:00 04/14/19 21:25 100 MG Influenza Virus Vaccine Quadrival (Afluria Quad 2019-20 (3yr Up) Syringe) 0.5 ml ONCE ONCE 04/12/19 09:00 04/12/19 09:01 DC 04/12/19 09:03 0.5 ML Iron Sucrose 200 mg/Sodium Chloride 110 ml @ 55 mls/hr 1X ONCE 04/12/19 16:00 04/12/19 17:59 DC 04/12/19 17:53 55 MLS/HR Isosorbide Mononitrate (Imdur) 30 mg 1X ONCE 04/14/19 10:00 04/14/19 10:01 DC 04/14/19 11:04 30 MG Labetalol HCl (Normodyne Iv Push) 20 mg PRN Q2HR PRN 04/11/19 20:30 04/15/19 08:23 20 MG Nicardipine HCl 50 mg/Sodium Chloride 250 ml @ 25 mls/hr CONT PRN 04/11/19 20:45 04/12/19 14:22 50 MLS/HR Nitroglycerin (Nitro-Bid Oint) 1 inch Q6HRS 04/11/19 20:45 04/12/19 09:44 DC 04/12/19 06:25 1 INCH Ondansetron HCl (Zofran) 4 mg PRN Q6HRS PRN 04/11/19 20:30 Potassium Chloride (Klor-Con) 20 meq 1X ONCE 04/11/19 21:15 04/11/19 21:16 DC 04/11/19 21:20 20 MEQ AVNI ABBASI MD Apr 15, 2019 11:56
[2019-04-15] MEDS: amLODIPine BESYLATE 10 MG TABLET PO SCH (12:15)
[2019-04-15] MEDS: CARVEDILOL 12.5 MG TABLET. PO SCH ×2 (12:16→17:30)
[2019-04-15] MEDS: ISOSORBIDE MONONITRATE ER 30 MG TAB.ER.24H PO SCH (12:17)
--- NOTE | 2019-04-15 12:54 | PDOC ---
Subjective: Subjective: No complaints, awaiting biopsy. Objective: Vital Signs: Vital Signs Date Time Temp Pulse Resp B/P (MAP) Pulse Ox O2 Delivery O2 Flow Rate FiO2 04/15/19 12:17 82 186/94 04/15/19 11:00 97.6 20 98 Room Air 97.6 04/15/19 07:00 2.0 PE: GEN: NAD LUNGS: CTAB HEART: RRR ABD: NABS, S/ND/NT NEURO/PSYCH: A & O 3 A/P: TERI/CKD LACI -- DC per primary after renal biopsy. Follow-up for outpt EGD/colonoscopy. CIRO RAJAN Apr 15, 2019 12:54
--- NOTE | 2019-04-15 12:55 | PDOC ---
BAR AVALOS APRN 04/15/19 1255: CARDIO Progress Notes Date and Time Date of Service 04/15/19 Time of Evaluation 1110 Subjective Subjective: No Chest Pain, No shortness of breath, No Palpitations Vitals Vitals Vital Signs Date Time Temp Pulse Resp B/P (MAP) Pulse Ox O2 Delivery O2 Flow Rate FiO2 04/15/19 12:17 82 186/94 04/15/19 11:00 97.6 20 98 Room Air 97.6 04/15/19 07:00 2.0 Weight Weight [ ] Input and Output Intake and Output Intake and Output 04/15/19 06:59 Intake Total 1400 ml Output Total 850 ml Balance 550 ml Intake Oral 1400 ml Output Urine Total 850 ml # Voids 2 Microbiology Micro Microbiology 04/11/19 Blood Culture - Preliminary, Resulted NO GROWTH AFTER 3 DAYS Review of Systems Constitutional: yes: alert, oriented Ears/Nose/Throat: Yes: no symptom reported Eyes: Yes: no symptom reported Pulmonary: Yes dyspnea Cardiovascular: Yes no symptom reported Gastrointestional: Yes: no symptom reported Genitourinary: Yes: no symptom reported Musculoskeletal: Yes: no symptom reported Skin: Yes no symptom reported Psychiatric/Neurological: Yes: no symptom reported Physical Exam HEENT: Neck Supple W Full Motion Chest: Symmetric LUNGS: Clear to Auscultation Heart: S1S2, RRR Abdomen: Soft N/T Extremities: No Edema Neurology: alert, oriented, follow commands Assessment Assessment 1. Malignant HTN: remains labile 2. Acute on chronic diastolic CHF; Echo with preserved LV systolic function 3. TERI on probable CKD. Renal duplex without obstruction. Renal biopsy later today 4. Mild troponin elevation: highest at 0.19, probable type II, demand mediated with multiple culprits above. CP free 5. Anemia of chronic disease: with Fe def. and renal disease 6. DLP Recommendations Increase Coreg Continue Imdur, hydralazine, norvasc. No ACEi/ARB with TERI Consider outpatient ischemic eval and FABIÁN workup. Supportive care TORREY LEVIN MD 04/15/19 1532: CARDIO Progress Notes Plan Plan Patient seen and examined. Agree with above nurse practitioner note. No acute events overnight. Underwent renal biopsy today. Medication changes as noted above. Discussed with nephrology service. Plan for discharge if stable blood pressures goal of approximately 150/80. BAR AVALOS APRN Apr 15, 2019 12:55 TORREY LEVIN MD Apr 15, 2019 15:32
[2019-04-15] MEDS ORDERED: MIDAZOLAM HCL/PF 2 MG/2 ML VIAL. ONE (12:59)
[2019-04-15] MEDS ORDERED: fentaNYL PF VIAL 100 MCG/2 ML VIAL ONE (12:59)
[2019-04-15] MEDS ORDERED: CARVEDILOL 12.5 MG TABLET. PO ONE (13:00)
[2019-04-15] MEDS ORDERED: MIDAZOLAM HCL/PF 2 MG/2 ML VIAL. IV ONE (13:15)
[2019-04-15] MEDS ORDERED: LIDOCAINE WITH 8.4% SOD BICARB 3 ML DISP.SYRIN. IJ ONE (13:15)
[2019-04-15] MEDS ORDERED: fentaNYL PF VIAL 100 MCG/2 ML VIAL IV ONE (13:15)
[2019-04-15] MEDS ORDERED: GELATIN SPONGE SIZE 12-7MM SPONGE. TP ONE (13:45)
--- NOTE | 2019-04-15 14:39 | PDOC ---
[facility] [facility] PROGRESS NOTE Chief Complaint Chief Complaint Hypertensive Emergency TERI Elevated troponin - this could be demand ischemia Anemia, microcytic - will replace iron. Hypokalemia Hypoalbuminemia Lethargy LE edema SIRS with acute end-organ dysfunction - TERI - present on admission - Improved History of Present Illness History of Present Illness 04/15/19 Pt seen and examined. Pt alert and sitting up in bed, in no acute distress. Has continued to have elevated blood pressures, was 180/90 this a.m. Will get renal biopsy today. Discussed with pt's , and with pt's nurse. 04/14/19 Mr Gonzalez is a 39yo M w/ PMHx asthma, morbid obesity who presents to ED directly from Dr Mitchell today because of BP 254/136. Patient has noted increased bilateral leg edema and shortness of breath for the last week. He has been c/o lethargy for weeks. He has recently been on a "health kick" and has intentionally lost 25# by joining the [employer] for exercise 3-5 days per week as of 2 months ago and he and his have made healthier dietary choices. Due to worsening dyspnea on exertion and early fatigue he thought that his asthma may have been acting up so he started using his albuterol inhaler and it did not seem to be working and has run out. Patient denies any illness or coughing, fever, abdominal pain, nausea, vomiting, headache, chest pain, dizziness, numbness or tingling, syncope, visual changes. Patient denies any pain at this time. Patient states at this time he is feeling normal but if he is up and moving is when he feels shortness of breath. He established primary care today for his lethargy and above BP was noted and he was sent immediately to the ED. He has not been told his BP has been elevated previously. In ED he was noted with a number of abnormalities with BP 264/154 minimally changed with labetalol. CXR revealed cardiomegaly. EKG NSR with non- specific lucretia-lateral ST depressions. 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 He lives with his and 2 children (8 and 5), is non-smoker, and has recently stopped drinking alcohol 2 months ago. Father and paternal grandfather with h/o HTN, does not know his mother's lineage or health history. 04/12: Overnight BP improved a bit on cardene GTT, but still not weaned off. His Cr is stable. Troponin came down. He feels symptomatically improved. Of note, he recalls he was on HCTZ a few years ago, but after a f/u appt with normal BP he was instructed to stop. 04/13: Feeling improved. Still with elevated BP, but off cardene GTT. Renal function not improved. WBC down. Iron infusing. D/w him and bedside given normal appearing kidneys on ultrasound that pending his 24 hour urine protein results he may need renal biopsy ECHO The left ventricular systolic function is normal. The Ejection Fraction is 55-60%. There is normal LV segmental wall motion. Trace mitral regurgitation. Mild tricuspid regurgitation with an estimated PAP of 32 mmHg. There is no evidence of significant pericardial effusion. Renal function improved. Urine 24 hour protein > 2g, but less than 3g. BP still elevated despite close to max dosing of 4 medications. Hb 8 today. Consented for renal biopsy tomorrow. Vitals/I&O Vitals/I&O: Vital Signs Date Time Temp Pulse Resp B/P (MAP) Pulse Ox O2 Delivery O2 Flow Rate FiO2 04/15/19 13:45 80 14 98 Nasal Cannula 2.0 04/15/19 13:41 154/89 (110) 04/15/19 11:00 97.6 97.6 I & O 04/14/19 04/14/19 04/15/19 15:00 23:00 07:00 Intake Total 750 ml 450 ml 200 ml Output Total 850 ml Balance -100 ml 450 ml 200 ml Physical Exam General: Alert, Oriented X3, Cooperative, No acute distress Heart: Regular rate, No murmurs Lungs: Clear Abdomen: Normal bowel sounds, Soft Extremities: No clubbing, No cyanosis Skin: No breakdown Review of Systems Review of Systems: No headache No chest pain Assessment and Plan Assessmemt and Plan Problems Medical Problems: (1) TERI (acute kidney injury) Status: Acute (2) Anemia Status: Acute (3) Edema Status: Acute (4) Elevated troponin Status: Acute (5) HTN (hypertension) Status: Acute (6) Hypertensive emergency Status: Acute (7) Hypoalbuminemia Status: Acute (8) Hypokalemia Status: Acute (9) Lethargy Status: Acute (10) Leukocytosis Status: Chronic A/P: Hypertensive Emergency TERI - no known hx of renal dysfunction. Elevated troponin - possibly demand related, will check serial enzymes Anemia Hypoalbuminemia Await results of kidney bx today Renal artery duplex showed high velocity flow anti-hypertensive meds cardiac monitoring trend creatinine trend hemoglobin trend troponin IVF - NS 75cc qh due to elevated creatinine if ok with consultants considering his blood pressure DVT ppx Full code Comment Review of Relevant I have reviewed the following items agustin (where applicable) has been applied. Medications: Current Medications Medications (Trade) Dose Ordered Sig/Radha Route PRN Reason Start Time Stop Time Status Last Admin Dose Admin Isosorbide Mononitrate (Imdur) 60 mg DAILY PO 04/15/19 09:00 04/15/19 12:17 Atorvastatin Calcium (Lipitor) 20 mg QHS PO 04/14/19 21:00 04/14/19 21:25 Lidocaine HCl (Buffered Lidocaine 1%) 3 ml 1X ONCE IJ 04/15/19 13:15 04/15/19 13:16 DC 04/15/19 13:27 Midazolam HCl (Versed) 2 mg 1X ONCE IV 04/15/19 13:15 04/15/19 13:16 DC 04/15/19 13:26 Fentanyl Citrate (Fentanyl 2ml Vial) 100 mcg 1X ONCE IV 04/15/19 13:15 04/15/19 13:16 DC 04/15/19 13:26 Gelatin (Gelfoam Size 12-7mm) 1 each 1X ONCE TP 04/15/19 13:45 04/15/19 13:46 DC 04/15/19 13:45 SHMUEL PABLO III DO Apr 15, 2019 14:39
[2019-04-15] MEDS: FERROUS SULFATE 325 MG TABLET. PO SCH ×2 (14:42→17:29)
[2019-04-15] MEDS: ATORVASTATIN CALCIUM 20 MG TABLET PO SCH (20:51)
[2019-04-15] MEDS: DOCUSATE SODIUM 100 MG CAPSULE. PO SCH (20:51)
[2019-04-16 03:03] VITALS: BP 125/66
[2019-04-16 05:13] LABS: BASO # 0.1 x10^3/uL (0.0-0.2); BASO % 1 % (0-3); EOS # 0.2 x10^3/uL (0.0-0.7); EOS % 2 % (0-3); HEMATOCRIT 23.3 % (39.0-53.0); HEMOGLOBIN 7.5 g/dL (13.0-17.5); LYMPH # 1.4 x10^3/uL (1.0-4.8); LYMPH % 14 % (24-48); MEAN CORPUSCULAR HEMOGLOBIN 24 pg (25-35); MEAN CORPUSCULAR HGB CONC 32 g/dL (31-37); MEAN CORPUSCULAR VOLUME 76 fL (79-100); MONO # 0.7 x10^3/uL (0.0-1.1); MONO % 7 % (0-9); NEUT # 7.9 x10^3/uL (1.8-7.7); NEUT % 77 % (31-73); PLATELET COUNT 235 x10^3/uL (140-400); RED BLOOD COUNT 3.05 x10^6/uL (4.30-5.70); RED CELL DISTRIBUTION WIDTH 17.3 % (11.5-14.5); WHITE BLOOD COUNT 10.3 x10^3/uL (4.0-11.0)
[2019-04-16 05:39] LABS: ALBUMIN 2.6 g/dL (3.4-5.0); ALBUMIN/GLOBULIN RATIO 0.8 (1.0-1.7); CALCIUM 8.7 mg/dL (8.5-10.1); CREATININE 3.2 mg/dL (0.7-1.3); GFR 21.8; POTASSIUM 4.1 mmol/L (3.5-5.1); TOTAL BILIRUBIN 0.5 mg/dL (0.2-1.0); TOTAL PROTEIN 5.9 g/dL (6.4-8.2)
[2019-04-16] MEDS: cloNIDine HCL 0.2 MG TABLET PO SCH (06:32)
[2019-04-16] MEDS: HEPARIN for SUB-Q USE 5,000 UNIT/ML VIAL. SQ SCH (06:35)
[2019-04-16 07:22] VITALS: BP 117/61
[2019-04-16] MEDS: ISOSORBIDE MONONITRATE ER 30 MG TAB.ER.24H PO SCH (08:39)
[2019-04-16] MEDS: DOCUSATE SODIUM 100 MG CAPSULE. PO SCH (08:40)
[2019-04-16] MEDS: CARVEDILOL 12.5 MG TABLET. PO SCH (08:40)
[2019-04-16] MEDS: FERROUS SULFATE 325 MG TABLET. PO SCH ×2 (08:40→13:27)
[2019-04-16] MEDS: amLODIPine BESYLATE 10 MG TABLET PO SCH (08:40)
[2019-04-16] MEDS ORDERED: cloNIDine TTS-3 1 PATCH PATCH.TDWK TD SCH ×2 (09:00→12:30)
[2019-04-16 11:04] VITALS: BP 106/67
[2019-04-16] MEDS ORDERED: cloNIDine HCL 0.1 MG TABLET PO PRN (11:15)
--- NOTE | 2019-04-16 11:20 | PDOC ---
CARDIO Progress Notes Date and Time Date of Service 04/16/2019 Time of Evaluation 1110 Subjective Subjective: No Chest Pain, No shortness of breath, No Palpitations Vitals Vitals Vital Signs Date Time Temp Pulse Resp B/P (MAP) Pulse Ox O2 Delivery O2 Flow Rate FiO2 04/16/19 11:04 97.7 69 18 106/67 (80) 96 Room Air 97.7 04/16/19 03:03 2.0 Weight Weight [ ] Input and Output Intake and Output Intake and Output 04/16/19 07:00 Intake Total 1880 ml Output Total 1325 ml Balance 555 ml Intake Oral 1880 ml Output Urine Total 1325 ml # Voids 3 # Bowel Movements 1 Laboratory Labs Laboratory Tests Test 04/16/19 04:40 White Blood Count 10.3 x10^3/uL (4.0-11.0) Red Blood Count 3.05 x10^6/uL (4.30-5.70) Hemoglobin 7.5 g/dL (13.0-17.5) Hematocrit 23.3 % (39.0-53.0) Mean Corpuscular Volume 76 fL (79-100) Mean Corpuscular Hemoglobin 24 pg (25-35) Mean Corpuscular Hemoglobin Concent 32 g/dL (31-37) Red Cell Distribution Width 17.3 % (11.5-14.5) Platelet Count 235 x10^3/uL (140-400) Neutrophils (%) (Auto) 77 % (31-73) Lymphocytes (%) (Auto) 14 % (24-48) Monocytes (%) (Auto) 7 % (0-9) Eosinophils (%) (Auto) 2 % (0-3) Basophils (%) (Auto) 1 % (0-3) Neutrophils # (Auto) 7.9 x10^3/uL (1.8-7.7) Lymphocytes # (Auto) 1.4 x10^3/uL (1.0-4.8) Monocytes # (Auto) 0.7 x10^3/uL (0.0-1.1) Eosinophils # (Auto) 0.2 x10^3/uL (0.0-0.7) Basophils # (Auto) 0.1 x10^3/uL (0.0-0.2) Sodium Level 134 mmol/L (136-145) Potassium Level 4.1 mmol/L (3.5-5.1) Chloride Level 98 mmol/L (98-107) Carbon Dioxide Level 30 mmol/L (21-32) Anion Gap 6 (6-14) Blood Urea Nitrogen 35 mg/dL (8-26) Creatinine 3.2 mg/dL (0.7-1.3) Estimated GFR (Cockcroft-Gault) 21.8 BUN/Creatinine Ratio 11 (6-20) Glucose Level 96 mg/dL (70-99) Calcium Level 8.7 mg/dL (8.5-10.1) Total Bilirubin 0.5 mg/dL (0.2-1.0) Aspartate Amino Transf (AST/SGOT) 15 U/L (15-37) Alanine Aminotransferase (ALT/SGPT) 10 U/L (16-63) Alkaline Phosphatase 85 U/L (46-116) Total Protein 5.9 g/dL (6.4-8.2) Albumin 2.6 g/dL (3.4-5.0) Albumin/Globulin Ratio 0.8 (1.0-1.7) Microbiology Micro Microbiology 04/11/19 Blood Culture - Preliminary, Resulted NO GROWTH AFTER 4 DAYS Review of Systems Constitutional: yes: alert, oriented Ears/Nose/Throat: Yes: no symptom reported Eyes: Yes: no symptom reported Pulmonary: Yes dyspnea Cardiovascular: Yes no symptom reported Gastrointestional: Yes: no symptom reported Genitourinary: Yes: no symptom reported Musculoskeletal: Yes: no symptom reported Skin: Yes no symptom reported Psychiatric/Neurological: Yes: no symptom reported Physical Exam HEENT: Neck Supple W Full Motion Chest: Symmetric LUNGS: Clear to Auscultation Heart: S1S2, RRR (SR) Abdomen: Soft N/T Extremities: No Edema Neurology: alert, oriented, follow commands Assessment Assessment 1. Malignant HTN: well controlled 2. Acute likely on chronic diastolic CHF: compensated. EF and WM nml 3. TERI with possible preexisting CKD:renal Bx result pending 4. suspecting FABIÁN 5. Mild troponin elevation: peaked at 0.19, possible demand mediated with multiple culprits above. No ectopies, CP free 6. Anemia of chronic disease: with Fe def. and renal disease 7. DLP 8. Morbid obesity 9. Marijuana use Recommendations 1. Follow nephrology input 2. Discussed with primary marine steam fitter. Continue BP regimen. Will place on catapres TTS 3 and will decrease hydralazine to BID and will uptitrate pending his BP trend. 3. Significant cardiac risk factors, will consider for outpt stress test. Follow up in office as scheduled 4. Marijuana cessation 5. Wt loss. Will need FABIÁN workup. HBPM BID x2 weeks and he will come to our office for BP check. BP diary discussed. .dietitian to see HEMA MCMULLEN RIG MANAGER Apr 16, 2019 11:20
--- NOTE | 2019-04-16 12:20 | PDOC ---
SUBJECTIVE ROS Asked to see for acute kidney injury and malignant hypertension Wild is feeling well overall. Blood pressures are better controlled. He is ready to go home today. No pain, discomfort at the biopsy site. No gross hematuria per se. CVS: no Orthopnea, no CP RESP: no SOB, no MARIN GI: no Nausea, no Vomiting : no Dysuria, no Urgency OBJECTIVE Vital Signs Vital Signs Date Time Temp Pulse Resp B/P (MAP) Pulse Ox O2 Delivery O2 Flow Rate FiO2 04/16/19 11:04 97.7 69 18 106/67 (80) 96 Room Air 97.7 04/16/19 03:03 2.0 I & 0 Intake and Output 04/16/19 07:00 Intake Total 1880 ml Output Total 1325 ml Balance 555 ml Intake Oral 1880 ml Output Urine Total 1325 ml # Voids 3 # Bowel Movements 1 PHYSICAL EXAM Physical Exam GEN: Awake, Oriented x 3, In no distress, obese gentleman EYES: Vision Unchanged, Conjunctiva Normal EN: No EN Drainage, Mucous Membranes m oist NECK: no JVD, no JVP, Supple, no Thyromegaly CVS: S1S2, no Murmur, No Gallop, No Rub,no Edema RESP: no Rales, no Rhonchi,no Acc. Muscle Use GI: BS + ve, NO Bruit, Non Tender, Non Distended : no CVA tenderness, no Suprapubic Tenderness DIAGNOSIS/ASSESSMENT Assessment & Plan Acute kidney injury: Creatinine appears to have stabilized at ~ 3-3.2. Current fluid and E-lyte status does not necessitate emergent need for dialysis. Possible underlying chronic kidney disease stage IV at current GFR levels cannot be ruled out. Await findings on kidney biopsy Iron deficiency ANEMIA with microcytosis; PO iron has been started pending GI evaluation of the same. May eventually need erythropoietin HTN associated with chronic kidney disease stage IV:Current BP meds as reviewed. See orders for changes. Patient claims grandfather as well as father both had diagnosed hypertension early in life. Patient did present with hypokalemia at presentation despite not being on HCTZ. This raises a possibility of santiago s yndrome. Amiloride is not available at this facility. Discussed with cardiology. Given current levels of blood pressure readings will decrease clonidine to 0.3 3 times a day or Catapres No. 3 patch Hypo-albuminemia: Possibly associated with proteinuria. Proteinuria is not noted to be nephrotic range per se. Proteinuria: Await findings of kidney biopsy . Obesity related glomerulopathy cannot be ruled out. Will eventually need OLYA-i/ARB exogenous obesity: Weight loss emphasized previously Mildly elevated phosphorus. Now improved. Patient has been seen by Test Engineering Manager and counseled regarding his diet Okay to discharge from renal standpoint and follow up with Dr. Jane in the next week or 2 COMMENT/RELEVANT DATA Meds Current Medications Medications (Trade) Dose Ordered Sig/Radha Start Time Stop Time Status Last Admin Dose Admin Acetaminophen (Tylenol) 650 mg PRN Q4HRS PRN 04/11/19 17:45 04/12/19 17:44 DC Amlodipine Besylate (Norvasc) 5 mg 1X ONCE 04/13/19 10:30 04/13/19 10:31 DC 04/13/19 10:26 5 MG Aspirin (Julian Aspirin) 325 mg 1X ONCE 04/11/19 16:00 04/11/19 16:01 DC 04/11/19 16:31 325 MG Atorvastatin Calcium (Lipitor) 20 mg QHS 04/14/19 21:00 04/15/19 20:51 20 MG Carvedilol (Coreg) 12.5 mg 1X ONCE 04/15/19 13:00 04/15/19 13:01 DC 04/15/19 14:42 12.5 MG Clonidine HCl (Catapres Tts-3) 1 patch WEEKLY 04/16/19 12:30 Clonidine HCl (Catapres) 0.1 mg PRN Q1HR PRN 04/16/19 11:15 Docusate Sodium (Colace) 100 mg BID 04/15/19 21:00 04/16/19 08:40 100 MG Fentanyl Citrate (Fentanyl 2ml Vial) 100 mcg 1X ONCE 04/15/19 13:15 04/15/19 13:16 DC 04/15/19 13:26 50 MCG Ferrous Sulfate (Feosol) 325 mg TIDWMEALS 04/15/19 12:00 04/16/19 08:40 325 MG Furosemide (Lasix) 60 mg 1X ONCE 04/11/19 17:45 04/11/19 17:46 DC 04/11/19 18:05 60 MG Gelatin (Gelfoam Size 12-7mm) 1 each 1X ONCE 04/15/19 13:45 04/15/19 13:46 DC 04/15/19 13:45 1 EACH Heparin Sodium (Porcine) (Heparin Sodium) 5,000 unit Q8HRS 04/11/19 22:00 04/16/19 06:35 5,000 UNIT Hydralazine HCl (Apresoline) 100 mg BID 04/16/19 21:00 Influenza Virus Vaccine Quadrival (Afluria Quad 2019-20 (3yr Up) Syringe) 0.5 ml ONCE ONCE 04/12/19 09:00 04/12/19 09:01 DC 04/12/19 09:03 0.5 ML Iron Sucrose 200 mg/Sodium Chloride 110 ml @ 55 mls/hr 1X ONCE 04/12/19 16:00 04/12/19 17:59 DC 04/12/19 17:53 55 MLS/HR Isosorbide Mononitrate (Imdur) 30 mg 1X ONCE 04/14/19 10:00 04/14/19 10:01 DC 04/14/19 11:04 30 MG Labetalol HCl (Normodyne Iv Push) 20 mg PRN Q2HR PRN 04/11/19 20:30 04/15/19 08:23 20 MG Lidocaine HCl (Buffered Lidocaine 1%) 3 ml 1X ONCE 04/15/19 13:15 04/15/19 13:16 DC 04/15/19 13:27 7 ML Midazolam HCl (Versed) 2 mg 1X ONCE 04/15/19 13:15 04/15/19 13:16 DC 04/15/19 13:26 1 MG Nicardipine HCl 50 mg/Sodium Chloride 250 ml @ 25 mls/hr CONT PRN 04/11/19 20:45 04/12/19 14:22 50 MLS/HR Nitroglycerin (Nitro-Bid Oint) 1 inch Q6HRS 04/11/19 20:45 04/12/19 09:44 DC 04/12/19 06:25 1 INCH Ondansetron HCl (Zofran) 4 mg PRN Q6HRS PRN 04/11/19 20:30 Potassium Chloride (Klor-Con) 20 meq 1X ONCE 04/11/19 21:15 04/11/19 21:16 DC 04/11/19 21:20 20 MEQ Lab Laboratory Tests Test 04/16/19 04:40 White Blood Count 10.3 x10^3/uL (4.0-11.0) Red Blood Count 3.05 x10^6/uL (4.30-5.70) Hemoglobin 7.5 g/dL (13.0-17.5) Hematocrit 23.3 % (39.0-53.0) Mean Corpuscular Volume 76 fL (79-100) Mean Corpuscular Hemoglobin 24 pg (25-35) Mean Corpuscular Hemoglobin Concent 32 g/dL (31-37) Red Cell Distribution Width 17.3 % (11.5-14.5) Platelet Count 235 x10^3/uL (140-400) Neutrophils (%) (Auto) 77 % (31-73) Lymphocytes (%) (Auto) 14 % (24-48) Monocytes (%) (Auto) 7 % (0-9) Eosinophils (%) (Auto) 2 % (0-3) Basophils (%) (Auto) 1 % (0-3) Neutrophils # (Auto) 7.9 x10^3/uL (1.8-7.7) Lymphocytes # (Auto) 1.4 x10^3/uL (1.0-4.8) Monocytes # (Auto) 0.7 x10^3/uL (0.0-1.1) Eosinophils # (Auto) 0.2 x10^3/uL (0.0-0.7) Basophils # (Auto) 0.1 x10^3/uL (0.0-0.2) Sodium Level 134 mmol/L (136-145) Potassium Level 4.1 mmol/L (3.5-5.1) Chloride Level 98 mmol/L (98-107) Carbon Dioxide Level 30 mmol/L (21-32) Anion Gap 6 (6-14) Blood Urea Nitrogen 35 mg/dL (8-26) Creatinine 3.2 mg/dL (0.7-1.3) Estimated GFR (Cockcroft-Gault) 21.8 BUN/Creatinine Ratio 11 (6-20) Glucose Level 96 mg/dL (70-99) Calcium Level 8.7 mg/dL (8.5-10.1) Total Bilirubin 0.5 mg/dL (0.2-1.0) Aspartate Amino Transf (AST/SGOT) 15 U/L (15-37) Alanine Aminotransferase (ALT/SGPT) 10 U/L (16-63) Alkaline Phosphatase 85 U/L (46-116) Total Protein 5.9 g/dL (6.4-8.2) Albumin 2.6 g/dL (3.4-5.0) Albumin/Globulin Ratio 0.8 (1.0-1.7) Results All relevant outside records, renal labs, imaging studies, telemetry/EKG's were reviewed. AVNI ABBASI MD Apr 16, 2019 12:20
--- NOTE | 2019-04-16 12:49 | PDOC ---
Subjective: Subjective: No complaints, says going home today. Objective: Vital Signs: Vital Signs Date Time Temp Pulse Resp B/P (MAP) Pulse Ox O2 Delivery O2 Flow Rate FiO2 04/16/19 11:04 97.7 69 18 106/67 (80) 96 Room Air 97.7 04/16/19 03:03 2.0 Labs: Laboratory Tests Test 04/16/19 04:40 White Blood Count 10.3 x10^3/uL Red Blood Count 3.05 x10^6/uL Hemoglobin 7.5 g/dL Hematocrit 23.3 % Mean Corpuscular Volume 76 fL Mean Corpuscular Hemoglobin 24 pg Mean Corpuscular Hemoglobin Concent 32 g/dL Red Cell Distribution Width 17.3 % Platelet Count 235 x10^3/uL Neutrophils (%) (Auto) 77 % Lymphocytes (%) (Auto) 14 % Monocytes (%) (Auto) 7 % Eosinophils (%) (Auto) 2 % Basophils (%) (Auto) 1 % Neutrophils # (Auto) 7.9 x10^3/uL Lymphocytes # (Auto) 1.4 x10^3/uL Monocytes # (Auto) 0.7 x10^3/uL Eosinophils # (Auto) 0.2 x10^3/uL Basophils # (Auto) 0.1 x10^3/uL Sodium Level 134 mmol/L Potassium Level 4.1 mmol/L Chloride Level 98 mmol/L Carbon Dioxide Level 30 mmol/L Anion Gap 6 Blood Urea Nitrogen 35 mg/dL Creatinine 3.2 mg/dL Estimated GFR (Cockcroft-Gault) 21.8 BUN/Creatinine Ratio 11 Glucose Level 96 mg/dL Calcium Level 8.7 mg/dL Total Bilirubin 0.5 mg/dL Aspartate Amino Transf (AST/SGOT) 15 U/L Alanine Aminotransferase (ALT/SGPT) 10 U/L Alkaline Phosphatase 85 U/L Total Protein 5.9 g/dL Albumin 2.6 g/dL Albumin/Globulin Ratio 0.8 PE: GEN: NAD LUNGS: CTAB HEART: RRR ABD: NABS, S/ND/NT NEURO/PSYCH: A & O 3 A/P: TERI/CKD s/p renal biopsy LACI -- DC per primary, follow-up w/ GI for outpt 'scopes. CIRO RAJAN Apr 16, 2019 12:49
[2019-04-16] MEDS ORDERED: HYDR100T24 PO (14:20)
[2019-04-16] MEDS ORDERED: ISOS60TA2 PO (14:20)
[2019-04-16] MEDS ORDERED: CARV25TA2 PO (14:20)
[2019-04-16] MEDS ORDERED: CLON1PAT6 TD (14:21)
[2019-04-16] MEDS ORDERED: ATOR20TA PO (14:21)
[2019-04-16] MEDS ORDERED: AMLO10TA4 PO (14:21)
[2019-04-16] MEDS ORDERED: FERR325T14 PO (14:22)
[2019-04-16] MEDS ORDERED: ASPI-630 PO (14:22)
--- NOTE | 2019-04-16 14:57 | PDOC ---
[employer] PROGRESS NOTE Chief Complaint Chief Complaint Renal biopsy - awaiting pathology results; recommend pt follow up with outpatient nephrology Hypertensive Emergency - improved on anti-hypertensive medications TERI Elevated troponin - this could be demand ischemia Anemia, microcytic Hypokalemia Hypoalbuminemia Lethargy LE edema SIRS with acute end-organ dysfunction - TERI - present on admission - Improved History of Present Illness History of Present Illness 04/16/19 Pt seen and examined. Pt alert and sitting in chair, in no distress. Ready to go home. Blood pressure controlled today, was slightly low overnight 97/57 around midnight. Discussed with nurse. Recommend pt follow-up with outpatient nephrology concerning kidney biopsy pathlology results. 04/15/19 Pt seen and examined. Pt alert and sitting up in bed, in no acute distress. Has continued to have elevated blood pressures, was 180/90 this a.m. Will get renal biopsy today. Discussed with pt's , and with pt's nurse. 04/14/19 Mr Gonzalez is a 39yo M w/ PMHx asthma, morbid obesity who presents to ED directly from Dr Mitchell today because of BP 254/136. Patient has noted increased bilateral leg edema and shortness of breath for the last week. He has been c/o lethargy for weeks. He has recently been on a "health kick" and has intentionally lost 25# by joining the [employer] for exercise 3-5 days per week as of 2 months ago and he and his have made healthier dietary choices. Due to worsening dyspnea on exertion and early fatigue he thought that his asthma may have been acting up so he started using his albuterol inhaler and it did not seem to be working and has run out. Patient denies any illness or coughing, fever, abdominal pain, nausea, vomiting, headache, chest pain, dizziness, numbness or tingling, syncope, visual changes. Patient denies any pain at this time. Patient states at this time he is feeling normal but if he is up and moving is when he feels shortness of breath. He established primary care today for his lethargy and above BP was noted and he was sent immediately to the ED. He has not been told his BP has been elevated previously. In ED he was noted with a number of abnormalities with BP 264/154 minimally changed with labetalol. CXR revealed cardiomegaly. EKG NSR with non- specific lucretia-lateral ST depressions. 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 He lives with his and 2 children (8 and 5), is non-smoker, and has recently stopped drinking alcohol 2 months ago. Father and paternal grandfather with h/o HTN, does not know his mother's lineage or health history. 04/12: Overnight BP improved a bit on cardene GTT, but still not weaned off. His Cr is stable. Troponin came down. He feels symptomatically improved. Of note, he recalls he was on HCTZ a few years ago, but after a f/u appt with normal BP he w as instructed to stop. 04/13: Feeling improved. Still with elevated BP, but off cardene GTT. Renal function not improved. WBC down. Iron infusing. D/w him and bedside given normal appearing kidneys on ultrasound that pending his 24 hour urine protein r esults he may need renal biopsy ECHO The left ventricular systolic function is normal. The Ejection Fraction is 55-60%. There is normal LV segmental wall motion. Trace mitral regurgitation. Mild tricuspid regurgitation with an estimated PAP of 32 mmHg. There is no evidence of significant pericardial effusion. Renal function improved. Urine 24 hour protein > 2g, but less than 3g. BP still elevated despite close to max dosing of 4 medications. Hb 8 today. Consented for renal biopsy tomorrow. Vitals/I&O Vitals/I&O: Vital Signs Date Time Temp Pulse Resp B/P (MAP) Pulse Ox O2 Delivery O2 Flow Rate FiO2 04/16/19 11:04 97.7 69 18 106/67 (80) 96 Room Air 97.7 04/16/19 03:03 2.0 I & O 04/15/19 04/15/19 04/16/19 15:00 23:00 07:00 Intake Total 780 ml 300 ml 800 ml Output Total 450 ml 875 ml Balance 780 ml -150 ml -75 ml Physical Exam General: Alert, Oriented X3, Cooperative, No acute distress Heart: Regular rate, No murmurs Lungs: Clear Abdomen: Normal bowel sounds, Soft Extremities: No clubbing, No cyanosis Skin: No breakdown Labs Labs: Laboratory Tests Test 04/16/19 04:40 White Blood Count 10.3 x10^3/uL (4.0-11.0) Red Blood Count 3.05 x10^6/uL (4.30-5.70) Hemoglobin 7.5 g/dL (13.0-17.5) Hematocrit 23.3 % (39.0-53.0) Mean Corpuscular Volume 76 fL (79-100) Mean Corpuscular Hemoglobin 24 pg (25-35) Mean Corpuscular Hemoglobin Concent 32 g/dL (31-37) Red Cell Distribution Width 17.3 % (11.5-14.5) Platelet Count 235 x10^3/uL (140-400) Neutrophils (%) (Auto) 77 % (31-73) Lymphocytes (%) (Auto) 14 % (24-48) Monocytes (%) (Auto) 7 % (0-9) Eosinophils (%) (Auto) 2 % (0-3) Basophils (%) (Auto) 1 % (0-3) Neutrophils # (Auto) 7.9 x10^3/uL (1.8-7.7) Lymphocytes # (Auto) 1.4 x10^3/uL (1.0-4.8) Monocytes # (Auto) 0.7 x10^3/uL (0.0-1.1) Eosinophils # (Auto) 0.2 x10^3/uL (0.0-0.7) Basophils # (Auto) 0.1 x10^3/uL (0.0-0.2) Sodium Level 134 mmol/L (136-145) Potassium Level 4.1 mmol/L (3.5-5.1) Chloride Level 98 mmol/L (98-107) Carbon Dioxide Level 30 mmol/L (21-32) Anion Gap 6 (6-14) Blood Urea Nitrogen 35 mg/dL (8-26) Creatinine 3.2 mg/dL (0.7-1.3) Estimated GFR (Cockcroft-Gault) 21.8 BUN/Creatinine Ratio 11 (6-20) Glucose Level 96 mg/dL (70-99) Calcium Level 8.7 mg/dL (8.5-10.1) Total Bilirubin 0.5 mg/dL (0.2-1.0) Aspartate Amino Transf (AST/SGOT) 15 U/L (15-37) Alanine Aminotransferase (ALT/SGPT) 10 U/L (16-63) Alkaline Phosphatase 85 U/L (46-116) Total Protein 5.9 g/dL (6.4-8.2) Albumin 2.6 g/dL (3.4-5.0) Albumin/Globulin Ratio 0.8 (1.0-1.7) Review of Systems Review of Systems: No headache No N/V Assessment and Plan Assessmemt and Plan Problems Medical Problems: (1) TERI (acute kidney injury) Status: Acute (2) Anemia Status: Acute (3) Edema Status: Acute (4) Elevated troponin Status: Acute (5) HTN (hypertension) Status: Acute (6) Hypertensive emergency Status: Acute (7) Hypoalbuminemia Status: Acute (8) Hypokalemia Status: Acute (9) Lethargy Status: Acute (10) Leukocytosis Status: Chronic A/P: Hypertensive Emergency - improved today on multiple anti-hypertensive medications TERI - no known hx of renal dysfunction. Elevated troponin Anemia Hypoalbuminemia Discharge home today Home meds anti-hypertensive meds: Carvedilol, Hydralazine, Imdur, Amlodipine, Lipitor Await results of kidney bx - recommend follow-up with outpatient nephrology Renal artery duplex showed high velocity flow cardiac monitoring DVT ppx Full code Comment Review of Relevant I have reviewed the following items agustin (where applicable) has been applied. Medications: Current Medications Medications (Trade) Dose Ordered Sig/Radha Route PRN Reason Start Time Stop Time Status Last Admin Dose Admin Docusate Sodium (Colace) 100 mg BID PO 04/15/19 21:00 04/16/19 08:40 Carvedilol (Coreg) 25 mg BIDWMEALS PO 04/15/19 17:00 04/16/19 08:40 Clonidine HCl (Catapres Tts-3) 1 patch WEEKLY TD 04/16/19 12:30 04/16/19 13:28 SHMUEL PABLO III DO Apr 16, 2019 14:57
--- NOTE | 2019-04-16 15:00 | NUR ---
Discharge Note: JOE LIZAMA Discharge instructions and discharge home medications reviewed with Patient and a copy given. All questions have been answered and understanding verbalized. Follow up appointment information and new prescriptions given to patient. The following instructions and handouts were given: Hypertension, Hydralazine, Imdur, Carvedilol, Clonidine patch, Amlodipine, Lipitor Discontinued lines and drains: Peripheral IV intact. Patient discharged to Home or Self Care with Spouse via Wheelchair
--- NOTE | 2019-04-17 20:12 | DS ---
DATE OF DISCHARGE: 04/16/2019 ADMISSION DIAGNOSES: Acute kidney injury with chronic renal disease and hypertension. DISCHARGE DIAGNOSIS: Chronic renal failure. PROCEDURE: Renal biopsy. HOSPITAL COURSE: The patient is a pleasant 39-year-old male who presented with a creatinine of 3.3. He had an elevated troponins as well and some hypertension with pressures into the 200s. Basically, he has had hypertensive disease for quite some time. We admitted the patient. We consulted Cardiology, did serial enzymes, serial EKGs. It was felt that his elevated troponin was secondary to chronic renal disease. We did a renal biopsy, the results of that are pending. His GFR is estimated to be around 25. We suspect he has chronic renal failure from his hypertension secondary to noncompliance. Yesterday, we saw and examined him where he was doing well. We discharged to home with close outpatient followup. DISPOSITION: Home. ACTIVITY: As tolerated. DIET: Low sodium. MEDICATIONS: Please see MRAD. TOTAL TIME: 32 minutes. SHMUEL PABLO DO DR: BARB/thomas JOB#: [id number] / [id number]
--- NOTE | 2019-04-18 00:06 | PATHOLOGY ---
[facility] Accession Number: [id number] . 01 Material submitted: . kidney - LEFT RENAL BIOPSY. Modifiers: left . 01 Clinical history: . Renal failure . 02 Diagnosis: Special studies report received from [facility], [address] [place] [address], [facility] [address] [address], on case [id number], labeled with their number [id number], dated 04/16/2019. . Specimen submitted: By Nathan Jane MD For Kidney, biopsy . DIAGNOSIS: . Thrombotic Microangiopathy. See Comment. . Comment: The vascular findings in this biopsy are consistent with those commonly seen secondary to accelerate hypertension (see references below). However, scleroderma renal crisis, anti-phospholipid antibody syndrome, and drug-induced etiologies, among others are also in the morphologic differential diagnosis. . Chronicity Summary Total Glomeruli- 11 Global Glomerulosclerosis- 1 Segmental Sclerosis- Absent Interstitial Fibrosis- Severe Tubular Atrophy- Severe Arterial Intimal Fibrosis- Moderate Arteriolar Hyalinosis- Absent . References: Benoit ZEPEDA et al. Genetic testing of complement and coagulation pathways in patients with severe hypertension and renal microangiopathy. Mod Pathol. 2018 Aug; 31(3):488-494. . Maribell Kilpatrick et al. Thrombotic Microangiopathy and the Kidney. Clin J Am Soc Nephrol. 2018 b7:13(2):300-317. . Clinical History: The patient is a 39-year-old male who presented with shortness of breath and bilateral leg edema. He also had elevated blood pressure at 254/136. The patient has a history of asthma and morbid obesity. His serum creatinine was elevated up to 3.1 and serum albumin was 3.2. Hemoglobin was 9.4. . Gross Description: Received from [facility] via [facility] are two foreign specimen bottles; one bottle contains formalin and the other contains Rickey's fixative. The bottles are labeled with the patient's name (Wild Gonzalez) and date of (1980). Per the submitted paperwork, the outside number is [id number]. . Received in Rickey's fixative is one piece of tissue measuring 0.6 x 0.1 x 0.1 cm bloody end. The specimen is submitted in its entirety for immunofluorescence microscopy. . Microscopic Description: LIGHT MICROSCOPY: . The biopsy consists of three cores of renal tissue, of which approximately 30% is represented by cortex. Up to seven glomeruli are present, none of which are globally sclerotic. The glomeruli have open capillary loops which have markedly wrinkled contours. Areas of Periglomerular fibrosis are present. There is no evidence of cellular crescents, fibrinoid necrosis or endocapillary hypercellularity. The tubulointerstitial compartment is marked by severe interstitial fibrosis and early tubular atrophy which comprise approximately 50-60% of the cortex. Inflammatory infiltrate is minimal, with few mononuclear cells identified in areas of chronicity. PAS-positive proteinaceous casts are seen, with no evidence of surrounding cellular reaction. Arteries are marked by moderate intimal fibrosis. Multiple arterioles are marked by Microangiopathic changes which include presence of fibrin thrombi within vascular lumina, fragmented RBCs within vascular obrien, onion-skinning and occlusion of the vascular lumina by fibrous material. Arteries also show mucoid degeneration of the intima. Toluidine blue-stained sections are examined, and contain one intact glomerulus. . Standard of care requirements for proper analysis of renal biopsies mandates serial sections, and PAS, Arriaga silver, trichrome and SMMT stains at multiple levels. PAS stains are used to evaluate various aspects of the glomerular, tubular, and vascular basement membranes. Arriaga silver stains are used to evaluate thickening, reduplication, "spiking" or "bubbling" of the glomerular basement membrane. Toluidine blue stained sections highlight glomerular basement membranes and demonstrates unusual types of deposits. It also reveals details of tubular epithelial cells and aids in the analysis of vascular lesions. Celina trichrome stains are used to evaluate interstitial fibrosis and basement membrane deposits. The SMMT stain helps evaluate basement membrane changes, immune deposits and tubulointerstitial scarring. Controls are routinely run on all special stains and are verified for acceptability. A review of the technical quality of routine slides is made before results are reported. . . IMMUNOFLUORESCENCE: Three glomeruli are present, one of which is globally sclerotic. The sections are stained for IgG, IgM, IgA, C3, C1q, albumin, fibrinogen, and kappa and lambda light chains. All the immunofluorescence stains are negative in the glomeruli. [place] and lambda light chains show equal staining throughout the tissue, in proteinaceous casts, and in protein droplets. . Positive and negative controls are run on all immunofluorescent stains and are verified for acceptability before results are reported. Internal antigens serve as positive controls. . ELECTRON MICROSCOPY: Two blocks are prepared. Ultrastructural evaluation of a glomerulus reveals basement membranes that are uniform and markedly wrinkled. No immune-type electron-dense deposits are present along the glomerular basement membranes or within the mesangium. There is severe epithelial foot process effacement. The tubular basement membranes are without deposits. . Special procedures including immunofluorescence and electron microscopy correlate with the light microscopy findings. . Note: Some of the tests reported here may have been developed and performance characteristics determined by [facility]. They have not been cleared or approved by the U.S. Food and Drug Administration (FDA). The FDA does not require this test to go through premarket FDA review. This test is used for clinical purposes. It should not be regarded as investigational or for research. [facility] is certified under the Clinical Laboratory Improvement Amendments of 1988 (CLIA) as qualified to perform high complexity clinical laboratory testing. . Physician/Physician's office called on 04/16/2019 at 4:14 PM Central. . *I have reviewed the clinical history, the pertinent gross findings, all microscopic materials, discussed the case with the clinician when appropriate, and have rendered the final diagnosis. . . Final Diagnosis performed by Dagmar Grewal M.D. Electronically signed 04/16/2019 5:20:29 PM . A complete copy of the report is on file. . Professional and technical services performed by [facility] at [address] [place] [address], [address], [facility]. . (CLW:amlaura 04/17/2019) . AZJ 04/17/2019 [address] [facility] . 02 Electronically signed: . Janey Jenkins MD, Pathologist NPI- [id number] . 01 Gross description: . The specimen is received in formalin, labeled "Wild Gonzalez, left renal BX", consist of few fragments of rene needle cores. Also received is a clear tissue fixative vial, labeled with patient name and "left renal BX" that consist of few fragments of red-rene needle cores. The specimen is sent to, and the final report will be submitted from, the [facility]. ([facility]; 04/15/2019) [facility] 04/15/2019 1723 Local . 02 Pathologist provided ICD-10: N19 . 02 CPT . 137225 Specimen Comment: A courtesy copy of this report has been sent to [phone], [phone] Specimen Comment: [phone], Specimen Comment: Report sent to ,DR ENGLAND / DR MEDEIROS Performed at: 01 [facility] [address] [facility] [address], [place] [id number] MD Frantz Preciado MD Phone: [phone] Performed at: 02 [facility] [address] [place], [place] [id number] MD Gilson Yañez MD Phone: [phone]
--- NOTE | 2019-04-21 09:53 | RAD ---
CT-guided, percutaneous kidney biopsy April 15, 2019 Indication: Renal failure Sedation: Conscious sedation was administered for 30 minutes. The patient was monitored by a qualified independent observer throughout the time of sedation. Please refer to the medical Consent: The procedure was explained in its entirety to the patient or the patients designated textile designs sales representative by a member of the treatment team, including a discussion of the risks, benefits and commonly accepted alternatives to the procedure, as well as the expected consequences of no therapy whatsoever. Discussion of the risks included, but was not limited to, those that are most frequent and those that are rare but possibly severe or life-threatening, as well as the possibility of unforeseen complications. Technique and Findings: Following informed consent, the patient was prepped and draped in the usual sterile fashion. 1% Lidocaine was used to achieve local anesthesia over the posterior left flank under intermittent CT guidance a 17-gauge needles advanced into the inferior pole left kidney. Multiple core biopsies were obtained and divided amongst formalin and renal biopsy fluid. Gelfoam embolization of the biopsy tract was performed as the guiding needle was removed. Manual pressure was held. Repeat CT demonstrates no significant hemorrhage or other palpitation. Impression: CT-guided Left kidney biopsy PQRS Compliance Statement: One or more of the following individualized dose reduction techniques were utilized for this examination: 1. Automated exposure control 2. Adjustment of the mA and/or kV according to patient size 3. Use of iterative reconstruction technique
== END 2019-04-16 15:00 | disposition home or self-care (01) | DRG 682 ==
LOC: ER 15:22 → 2 NORTH 17:40
PROVIDERS: ADMIT Internal Medicine; ATTEND Internal Medicine
PROC: 0TB13ZX Excision of Left Kidney, Percutaneous Approach, Diagnostic (ICD-10-PCS; principal; 2019-04-11)
DX: N17.9 Acute kidney failure, unspecified (principal); I50.43 Acute on chronic combined systolic (congestive) and diastolic (congestive) heart failure; R65.11 Systemic inflammatory response syndrome (SIRS) of non-infectious origin with acute organ dysfunction; I16.1 Hypertensive emergency; E44.1 Mild protein-calorie malnutrition; I13.0 Hypertensive heart and chronic kidney disease with heart failure and stage 1 through stage 4 chronic kidney disease, or unspecified chronic kidney disease; Z68.42 Body mass index [BMI] 45.0-49.9, adult; D50.9 Iron deficiency anemia, unspecified; D63.8 Anemia in other chronic diseases classified elsewhere; D72.829 Elevated white blood cell count, unspecified; E66.01 Morbid (severe) obesity due to excess calories; E87.6 Hypokalemia; F12.90 Cannabis use, unspecified, uncomplicated; J45.909 Unspecified asthma, uncomplicated; N18.9 Chronic kidney disease, unspecified; Z82.49 Family history of ischemic heart disease and other diseases of the circulatory system; Z91.19 Patient's noncompliance with other medical treatment and regimen; Z87.891 Personal history of nicotine dependence; E66.9 Obesity, unspecified
CPT/HCPCS: 36415; 50200; 71046; 76770; 77012; 80048; 80053; 80061; 80069; 80307; 81001; 82550; 82570; 82575; 82607; 83010; 83036; 83540; 83550; 83615; 83735; 83880; 84145; 84156; 84300; 84443; 84484; 85025; 85045; 85610; 85730; 87040; 88300; 90471; 90686; 93005; 93306; 94760; 96374; 96375; 99152; J1644; J1756; J1940; J2250; J2405; J3010; J3490; J7050; 99285-25; G0378; J7030

== ENCOUNTER → 2020-12-10 | Outpatient (CLI) | payer BC ==
[~2020-12-10] MED LIST: AMLO10TA4 PO; ASPI-630 PO; ATOR20TA PO; CARV25TA2 PO; CLON1PAT6 TD; FERR325T14 PO; HYDR100T24 PO; ISOS60TA55 PO
--- NOTE | 2020-12-10 12:48 | CARD ---
MR#: [id number] Date of Study: 12/10/2020 Ordering Physician: TORREY LEVIN, Referring Physician: TORREY LEVIN, Tech: Bert Ward [facility] APPROVED REPORT EXAM: Two-dimensional and M-mode echocardiogram with Doppler and color Doppler. Other Information Quality : AverageHR: 67bpm Rhythm : NSR INDICATION Congestive Heart Failure RISK FACTORS Hypertension Obesity 2D DIMENSIONS Left Atrium(2D)4.3 (1.6-4.0cm)IVSd1.5 (0.7-1.1cm) Aortic Root(2D)3.5 (2.0-3.7cm)LVDd4.8 (3.9-5.9cm) LVOT Diameter2.3 (1.8-2.4cm)LVDs2.5 (2.5-4.0cm) FS (%) 48.3 %SV86.9 ml LVEF(%)79.6 (>50%) Aortic Valve AoV Peak Amaury.145.4cm/sAoV VTI32.2cm AO Peak GR.8.5mmHgLVOT Peak Amaury.95.2cm/s LVOT VTI 23.72cmAO Mean GR.5mmHg JOSE (VMAX)1.14cr9PQV (VTI)3.07cm2 Mitral Valve MV E Htpnwatn91.0cm/sMV E Peak Gr.3mmHg MV DECEL [id number] A Ydqbszhy46.7cm/s MV RKD96edT/A Ratio0.8 MVA (PHT)2.47cm2 TDI E/Lateral E'7.4E/Medial E'8.8 Pulmonary Valve PV Peak Louohvfs995.2cm/sPV Peak Grad.5mmHg Tricuspid Valve TR P. Rlinegml289xu/sTR Peak Gr.28mmHg Pulmonary Vein S1 Xvfyxyra63.9cm/sD2 Scqldleh68.8cm/s LEFT VENTRICLE The left ventricle is normal size. There is moderate concentric left ventricular hypertrophy. The lef t ventricular systolic function is normal. The ejection fraction is 60-65%. There is normal LV segmen lamin wall motion. Transmitral Doppler flow pattern is Grade I-abnormal relaxation pattern. No left keely tricle thrombus noted on this study. There is no ventricular septal defect visualized. There is no le ft ventricular aneurysm. There is no mass noted in the left ventricle. RIGHT VENTRICLE The right ventricle is normal size. There is normal right ventricular wall thickness. The right ventr icular systolic function is normal. ATRIA The left atrium size is normal. The right atrium size is normal. The interatrial septum is intact wit h no evidence for an atrial septal defect or patent foramen ovale as noted on 2-D or Doppler imaging. AORTIC VALVE The aortic valve is normal in structure and function. Doppler and Color Flow revealed no significant aortic regurgitation. There is no significant aortic valvular stenosis. There is no aortic valvular v egetation. MITRAL VALVE The mitral valve is normal in structure and function. There is no evidence of mitral valve prolapse. There is no mitral valve stenosis. Doppler and Color-flow revealed mild mitral regurgitation. TRICUSPID VALVE The tricuspid valve is normal in structure and function. Doppler and Color Flow revealed trace tricus pid regurgitation. There is no tricuspid valve prolapse or vegetation. PULMONIC VALVE The pulmonary valve is normal in structure and function. Doppler and Color Flow revealed no pulmonic valvular regurgitation. There is no pulmonic valvular stenosis. GREAT VESSELS The aortic root is normal in size. The ascending aorta is normal in size. The pulmonary artery is nor mal. The IVC is normal in size and collapses >50% with inspiration. PERICARDIAL EFFUSION There is no pleural effusion. There is no evidence of significant pericardial effusion. Critical Notification Critical Value: No <Conclusion> The left ventricular systolic function is normal. The ejection fraction is 60-65%. There is normal LV segmental wall motion. There is moderate concentric left ventricular hypertrophy. Transmitral Doppler flow pattern is Grade I-abnormal relaxation pattern. Mild mitral regurgitation. Trace tricuspid regurgitation. There is no evidence of significant pericardial effusion. Signed by : Naun Rosales, Electronically Approved : 12/10/2020 12:47:39
== END ==
LOC: ECHO 09:11
PROVIDERS: ATTEND Internal Medicine Cardiovascular Disease
DX: I34.0 Nonrheumatic mitral (valve) insufficiency (principal); I50.30 Unspecified diastolic (congestive) heart failure; I51.7 Cardiomegaly
CPT/HCPCS: 93306